=== PATIENT | male | born 1935 | race Caucasian/White ===

== ENCOUNTER 2018-08-09 05:29 | Inpatient (IN) ==
[2018-08-09] MEDS ORDERED: NORMAL SALINE 1,000 ML IV ONE (05:58)
--- NOTE | 2018-08-09 06:01 | ERNOTE ---
<Saul Copeland - Last Filed: 08/09/18 06:32> Medical Problem HPI - General Time Seen by Provider: 08/09/18 05:32 Source: EMS Exam Limitations: clinical condition - Immun/Allergies/Home Medications Immunizations: IMMUNIZATION HX Immunizations Up to Date Yes History of Influenza Vaccine Yes Hx Pneumococcal Vaccination No Allergies/Adverse Reactions: Allergies Penicillins Adverse Reaction (Mild, Verified 07/02/14 09:06) "DEATHLY ILL" pioglitazone HCl [From Actos] Adverse Reaction (Mild, Verified 07/02/14 09:06) "ZOMBIE LIKE" Home Medications: HOME MEDICATIONS Aspirin [Aspirin Enteric Coated] 81 mg PO DAILY 06/19/14 [Last Taken Unknown] Blood Sugar Diagnostic, Drum [Accu-Chek Compact] 1 each MC BID 06/19/14 [Last Taken Unknown] Brinzolamide [Azopt 1% Ophthalmic Suspension] 1 drop EACHEYE BID 06/19/14 [Last Taken Unknown] Insulin Glargine,Hum.rec.anlog [Lantus] 50 unit SQ DAILY 06/19/14 [Last Taken Unknown] Multivitamins [Multivitamin Elmer] 1 cap PO DAILY 06/19/14 [Last Taken Unknown] glimepiride 4 mg tablet 4 mg PO ONCE #90 tab 12/29/17 [Last Taken Unknown] glimepiride 4 mg tablet 4 mg PO DAILY #90 tab 07/30/18 [Last Taken Unknown] metformin ER 500 mg tablet,extended release 24 hr 1,000 mg PO BIDWM #360 tab 07/30/18 [Last Taken Unknown] simvastatin 40 mg tablet 20 mg PO QPM #45 tab 07/30/18 [Last Taken Unknown] - History of Present History Narrative: EMS was called out for patient assistance and found the patient on the toilet. His stated that he had been sitting there for about an hour and that he had been more confused throughout the day yesterday. Timing: getting worse Severity: moderate Review of Systems - Review of Systems Constitutional: Absent: recent illness, fever, chills EYE: Absent: vision changes ENT: Absent: nose congestion, nasal drainage Respiratory: Absent: shortness of breath Cardiology: Absent: chest pain Gastrointestinal/Abdominal: Absent: nausea, vomiting, diarrhea, abdominal pain Genitourinary: Present: frequency. 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 Left full, right partial. Family History: Family History (Updated 08/09/18 @ 06:03 by Ethel Jauregui, RN) Other No pertinent family history Social History: Preferred Language Malawian Psych History No pertinent hx No Social History Section defined Physical Exam - Physical Exam General Appearance: Present: wd/wn, alert, no apparent distress, other - Pt smells strongly of urine Head Exam: Present: normal inspection, no evidence of injury Ears, Nose, Throat: Present: dry mucous membranes Neck: Present: normal inspection, nontender, supple Respiratory: Present: no respiratory distress, no accessory muscle use, chest nontender, lungs clear Cardiovascular/Chest: Present: regular rate, rhythm, no murmur, extra beats. Absent: chest tenderness Gastrointestinal/Abdominal: Present: normal bowel sounds, nontender, nondistended, soft Extremity Exam: Present: normal inspection, normal range of motion, no edema Neurological Exam: Present: alert, oriented, no motor/sensory deficits Skin Exam: Present: normal color, warm/dry, other - few abrasions/ sores on anterior tibia bilateral Lymphatic Exam: Present: no adenopathy Progress - Results and Orders Patient's Lab Results:: I have reviewed the patient's lab results. Results and Orders: Laboratory Tests 08/09/18 08/09/18 08/09/18 05:58 05:58 05:58 WBC 18.2 H Hgb 16.8 Hct 50.1 Plt Count 268 Neutrophils % 90.8 H VBG pH 7.298 L Sodium 129 L Potassium 5.5 H D Chloride 94 L BUN 48 H D Creatinine 2.14 H D Calcium 9.9 Total Bilirubin 1.1 AST 55 H ALT 21 Ethyl Alcohol Less than 3.0 Serum Ketones Pending - Vital Signs Patient's Vital Signs:: I have reviewed the patient's vital signs. - Transfer of Care Physician Sign Out: Saul Copeland Receiving Physician: Nirmal Louise Pending Results: Labs Expected Disposition: Admit Departure Clinical Impression: WIN (acute kidney injury) DKA (diabetic ketoacidoses) Qualifiers: Diabetes mellitus type: type 2 Diabetes mellitus complication detail: without coma Qualified Code(s): E11.10 - Type 2 diabetes mellitus with ketoacidosis without coma - Departure Disposition: Still a patient Condition: Fair <Nirmal Louise - Last Filed: 08/09/18 07:25> Medical Problem HPI - Immun/Allergies/Home Medications Immunizations: IMMUNIZATION HX Immunizations Up to Date Yes History of Influenza Vaccine Yes Hx Pneumococcal Vaccination More Information Required Medical History (Updated 08/09/18 @ 06:31 by Saul Copeland DO) Colon cancer 2007 Diabetes Hyperlipidemia Irregular heart beat Surgical History: Surgical History (Updated 08/09/18 @ 06:02 by Ethel Jauregui, JAYMIE) History of colon resection 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 Left full, right partial. Family History: Family History (Updated 08/09/18 @ 06:03 by Ethel Jauregui, JAYMIE) Other No pertinent family history Social History: Preferred Language Malawian Do you have any sikhism or No: Prod cultural preference? Smoking Status Former smoker Psych History No pertinent hx Alcohol Use none Drug Use none No Social History Section defined Progress - Results and Orders Patient's Lab Results:: I have reviewed the patient's lab results. - Vital Signs Patient's Vital Signs:: I have reviewed the patient's vital signs. Vital Signs: Vital Signs 08/09/18 05:33 08/09/18 06:15 08/09/18 06:30 Temperature 36.4 C Pulse Rate 112 H 91 91 Respiratory Rate 24 H 23 H 25 H Blood Pressure 164/67 H 124/65 165/71 H O2 Sat by Pulse Oximetry 94 95 08/09/18 06:58 Temperature Pulse Rate 102 H Respiratory Rate 14 Blood Pressure 169/78 H O2 Sat by Pulse Oximetry 94 - X-Ray X-Ray #1 X-Ray: chest Interpretation: Interp. by me X-ray Comments: No radiology read yet. No pneumonia noted - Progress/Reassessment Progress Note-Subjective: 08/09/18 07:24 IV fluids and ABx given awaiting UA. Labs reviewed. IV insulin drip given. D/W Dr Gross who will admit. Patient and family informed. Please see Dr Copeland's note for full H&P.
[2018-08-09 06:04] LABS: Hematocrit 50.1 % (42.0-52.0); Hemoglobin 16.8 gm/dL (13.5-18.0); Mean Cell Volume 93.8 fl (78-100); Mean Corpuscular Hemoglobin 31.5 pg (27-31); Mean Corpuscular Hgb Conc 33.5 g/dl (32-36); Mean Platelet Volume 9.7 fl (8-11.3); Neutrophil # 16.5 K/mm3 (1.3-6.0); Neutrophil % 90.8 % (42-75.0); Platelet Count 268 K/mm3 (150-450); Red Blood Count 5.34 M/mm3 (4.7-6.0); Red Cell Distribution Width 12.4 % (11.5-14.0); White Blood Count 18.2 K/mm3 (4.0-10.5)
[2018-08-09 06:17] LABS: ALT 21 U/L (19-67); AST 55 U/L (0-48); Albumin * 3.6 gm/dl (3.4-5.0); Alkaline Phosphatase * 106 U/L (50-170); Anion Gap 27.1 mmol/L (6.8-13.8); BUN/Creatinine Ratio 22.4 (9.0-21.6); Bilirubin, Total 1.1 mg/dL (0.0-1.1); Blood Urea Nitrogen 48 mg/dL (6-23); Ca. Corrected For Albumin 9.9 mg/dL (8.4-10.2); Calcium * 9.9 mg/dL (7.9-10.9); Carbon Dioxide 13.4 mmol/L (24-32.6); Chloride 94 mmol/L (97-106); Potassium 5.5 mmol/L (3.4-4.6); Sodium 129 mmol/L (132-142); Total Protein 8.2 gm/dL (6.2-8.2)
[2018-08-09] MEDS ORDERED: LEVOFLOXACIN IN DEXTROSE 5 % 500 MG/100 ML BAG IV SCH (06:45)
[2018-08-09] MEDS ORDERED: INSULIN REGULAR, HUMAN 100 UNITS in NORMAL SALINE 100 ML IV PRN ×4 (06:46→15:22)
[2018-08-09 06:51] LABS: Urine Bilirubin Negative (NEGATIVE); Urine Blood 250 /ul (NEGATIVE); Urine Ketone 15 mg/dL (NEGATIVE); Urine Nitrite Negative (NEGATIVE); Urine Protein 15 mg/dL (NEGATIVE); Urine Specific Gravity <=1.005 SP.GR. (1.005-1.030); Urine Urobilinogen Normal (NORMAL); Urine pH 5.5 pH (5.0-7.0)
[2018-08-09 07:01] LABS: Cocaine Ur Negative (NEGATIVE); Urine Barbiturate Negative (NEGATIVE); Urine Benzodiazepines Negative (NEGATIVE); Urine Opiates Negative (NEGATIVE); Urine PCP Negative (NEGATIVE); Urine THC Negative (NEGATIVE)
[2018-08-09 07:12] LABS: Urine Appearance Clear (CLEAR); Urine Color Yellow; Urine WBC 0-5 /hpf (0-5)
[2018-08-09 07:13] LABS: Urine Bacteria TRACE; Urine Yeast TRACE
[2018-08-09 07:19] LABS: Glucose * 790 mg/dL (70-110)
[2018-08-09] MEDS: NORMAL SALINE 1,000 ML IV SCH ×4 (07:21→22:54)
[2018-08-09] MEDS ORDERED: NORMAL SALINE 1,000 ML IV PRN (08:30)
--- NOTE | 2018-08-09 08:33 | HP ---
Chief Complaint - Chief Complaint Date of Service: 08/09/18 Time of Service: 08:33 Chief Complaint: Diarrhea, lightheaded History of Present Illness: Trever is an 83 yo male with diabetes mellitus type 2, insulin dependent. For the past week he reports diarrhea, nausea, and poor oral intake. He was becoming increasingly fatigued and weak and therefore presented to the [facility] ER today for evaluation. He was found to have a blood glucose of 790 with high anion gap metabolic acidosis and serum ketones with a pH of 7.298. He was given a liter bolus of NS in the ER and started on insulin drip. Chest xray and urine did not show any evidence of infection. 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 Left full, right partial. Family History: Family History (Updated 08/09/18 @ 06:03 by Ethel Jauregui RN) Other No pertinent family history Social History: Preferred Language Indonesian Do you have any sikhism or No: Prod cultural preference? Smoking Status Former smoker Psych History No pertinent hx Alcohol Use none Drug Use none No Social History Section defined Review Of Systems (GEN) - Review of Systems Generalized/Overall Review: Present: Weakness, Malaise, Fatigue. Absent: Chills, Fever EENTM: Present: No Symptoms Reported Respiratory: Absent: Cough, Shortness of Breath Cardiac: Absent: Chest Pain, Edema Abdominal: Present: Nausea, Abdominal Pain, Diarrhea Genitourinary: Present: No Symptoms Reported Musculoskeletal: Present: No Symptoms Reported Neurological: Present: Weakness Skin: Present: No Symptoms Reported Immunizations: IMMUNIZATION HX Immunizations Up to Date Yes History of Influenza Vaccine Yes Hx Pneumococcal Vaccination More Information Required Allergies/Adverse Reactions: Allergies Allergy/AdvReac Type Severity Reaction Status Date / Time Penicillins AdvReac Mild "DEATHLY Verified 08/09/18 09:10 ILL" pioglitazone HCl [From Actos] AdvReac Mild "ZOMBIE Verified 08/09/18 09:10 LIKE" Home Medications: HOME MEDICATIONS Aspirin [Aspirin Enteric Coated] 81 mg PO DAILY 06/19/14 [Last Taken Unknown] Blood Sugar Diagnostic, Drum [Accu-Chek Compact] 1 each BID 06/19/14 [Last Taken Unknown] Brinzolamide [Azopt 1% Ophthalmic Suspension] 1 drop EACHEYE BID 06/19/14 [Last Taken Unknown] Insulin Glargine,Hum.rec.anlog [Lantus] 50 unit SQ DAILY 06/19/14 [Last Taken Unknown] Multivitamins [Multivitamin Elmer] 1 cap PO DAILY 06/19/14 [Last Taken Unknown] glimepiride 4 mg tablet 4 mg PO DAILY #90 tab 07/30/18 [Last Taken Unknown] metformin ER 500 mg tablet,extended release 24 hr 1,000 mg PO BIDWM #360 tab 07/30/18 [Last Taken Unknown] simvastatin 40 mg tablet 20 mg PO QPM #45 tab 07/30/18 [Last Taken Unknown] Exam - Exam Vital Signs: Vital Signs - Last Taken Temp 36.4 C 08/09/18 08:20 Pulse 102 H 08/09/18 08:20 Resp 20 08/09/18 08:20 BP 159/74 H 08/09/18 08:20 Pulse Ox 95 08/09/18 08:20 Constitutional: Present: Alert, Oriented x3, Cooperative ENT Exam: Present: hearing grossly normal Eye Exam: bilateral eye: normal inspection Respiratory: Present: lungs clear, normal breath sounds Cardiovascular/Chest: Present: no murmur, tachycardia Peripheral Pulses: radial (R): 1+, radial (L): 1+ Abdomen: Present: Normal bowel sounds, soft, nontender, nondistended Extremity: Present: normal inspection Skin Exam: Present: normal color, warm/dry, no cyanosis Neurologic: Present: alert, normal mood/affect, oriented x 3 Appearance: Present: appropriate appearance, appropriate insight Eye contact: Present: cooperative, good eye contact, normal speech Thoughts: Present: normal thought pattern, no apparent hallucination Diagnostic Studies: Abnormal Lab Results 08/09/18 08/09/18 08/09/18 Range/Units 05:56 05:58 05:58 WBC 18.2 H (4.0-10.5) K/mm3 MCH 31.5 H (27-31) pg Immature Gran % (Auto) 0.60 H (0.001-0.429) % Immature Gran # (Auto) 0.11 H (0.000-0.0310) K/mm3 Neutrophils % 90.8 H (42-75.0) % Lymphocytes % 3.8 L (20-51) % Neutrophils # 16.5 H (1.3-6.0) K/mm3 Lymphocytes # 0.70 L (1.5-3.5) k/mm3 VBG pH (7.32-7.43) Sodium 129 L (132-142) mmol/L Potassium 5.5 H D (3.4-4.6) mmol/L Chloride 94 L (97-106) mmol/L Carbon Dioxide 13.4 L (24-32.6) mmol/L Anion Gap 27.1 H (6.8-13.8) mmol/L BUN 48 H D (6-23) mg/dL Creatinine 2.14 H D (0.4-1.4) mg/dL Est GFR (Non-Af Amer) 32 L D (60-130) mL/min BUN/Creatinine Ratio 22.4 H (9.0-21.6) Random Glucose 790 H* (70-110) mg/dL Lactic Acid, Venous 4.9 H* (0.4-2.0) mmol/L AST 55 H (0-48) U/L Urine Protein (NEGATIVE) mg/dL Urine Glucose (UA) (NEGATIVE) mg/dL Urine Blood (NEGATIVE) /ul Urine RBC (0-5) /hpf Serum Ketones Positive - 20mg/dl H (NEGATIVE) 08/09/18 08/09/18 Range/Units 05:58 06:45 WBC (4.0-10.5) K/mm3 MCH (27-31) pg Immature Gran % (Auto) (0.001-0.429) % Immature Gran # (Auto) (0.000-0.0310) K/mm3 Neutrophils % (42-75.0) % Lymphocytes % (20-51) % Neutrophils # (1.3-6.0) K/mm3 Lymphocytes # (1.5-3.5) k/mm3 VBG pH 7.298 L (7.32-7.43) Sodium (132-142) mmol/L Potassium (3.4-4.6) mmol/L Chloride (97-106) mmol/L Carbon Dioxide (24-32.6) mmol/L Anion Gap (6.8-13.8) mmol/L BUN (6-23) mg/dL Creatinine (0.4-1.4) mg/dL Est GFR (Non-Af Amer) (60-130) mL/min BUN/Creatinine Ratio (9.0-21.6) Random Glucose (70-110) mg/dL Lactic Acid, Venous (0.4-2.0) mmol/L AST (0-48) U/L Urine Protein 15 H (NEGATIVE) mg/dL Urine Glucose (UA) >=1000 H (NEGATIVE) mg/dL Urine Blood 250 H (NEGATIVE) /ul Urine RBC 5-10 H (0-5) /hpf Serum Ketones (NEGATIVE) Laboratory Results WBC 18.2 K/mm3 (4.0-10.5) H 08/09/18 05:58 RBC 5.34 M/mm3 (4.7-6.0) 08/09/18 05:58 Hgb 16.8 gm/dL (13.5-18.0) 08/09/18 05:58 Hct 50.1 % (42.0-52.0) 08/09/18 05:58 MCV 93.8 fl (78-100) 08/09/18 05:58 MCH 31.5 pg (27-31) H 08/09/18 05:58 MCHC 33.5 g/dl (32-36) 08/09/18 05:58 RDW 12.4 % (11.5-14.0) 08/09/18 05:58 Plt Count 268 K/mm3 (150-450) 08/09/18 05:58 MPV 9.7 fl (8-11.3) 08/09/18 05:58 Immature Gran % (Auto) 0.60 % (0.001-0.429) H 08/09/18 05:58 Immature Gran # (Auto) 0.11 K/mm3 (0.000-0.0310) H 08/09/18 05:58 90.8 % (42-75.0) H 08/09/18 05:58 3.8 % (20-51) L 08/09/18 05:58 4.5 % (0.0-9) 08/09/18 05:58 0.0 % (0.0-3.0) 08/09/18 05:58 0.3 % (0.0-1.0) 08/09/18 05:58 Nucleated RBC % 0.0 k/mm3 (0-1) 08/09/18 05:58 16.5 K/mm3 (1.3-6.0) H 08/09/18 05:58 0.70 k/mm3 (1.5-3.5) L 08/09/18 05:58 0.8 k/mm3 (0.0-1.0) 08/09/18 05:58 0.0 k/mm3 (0.0-0.7) 08/09/18 05:58 Absolute Basophils 0.1 k/mm3 (0.0-0.1) 08/09/18 05:58 VBG pH 7.298 (7.32-7.43) L 08/09/18 05:58 Sodium 129 mmol/L (132-142) L 08/09/18 05:58 140 mmol/L (130-142) 08/09/18 05:58 Potassium 5.5 mmol/L (3.4-4.6) H D 08/09/18 05:58 Chloride 94 mmol/L (97-106) L 08/09/18 05:58 Carbon Dioxide 13.4 mmol/L (24-32.6) L 08/09/18 05:58 27.1 mmol/L (6.8-13.8) H 08/09/18 05:58 BUN 48 mg/dL (6-23) H D 08/09/18 05:58 2.14 mg/dL (0.4-1.4) H D 08/09/18 05:58 Est GFR (Non-Af Amer) 32 mL/min (60-130) L D 08/09/18 05:58 22.4 (9.0-21.6) H 08/09/18 05:58 790 mg/dL (70-110) H* 08/09/18 05:58 4.9 mmol/L (0.4-2.0) H* 08/09/18 05:56 Calcium 9.9 mg/dL (7.9-10.9) 08/09/18 05:58 Calcium Adj for Albumin 9.9 mg/dL (8.4-10.2) 08/09/18 05:58 1.1 mg/dL (0.0-1.1) 08/09/18 05:58 AST 55 U/L (0-48) H 08/09/18 05:58 ALT 21 U/L (19-67) 08/09/18 05:58 106 U/L (50-170) 08/09/18 05:58 8.2 gm/dL (6.2-8.2) 08/09/18 05:58 3.6 gm/dl (3.4-5.0) 08/09/18 05:58 Yellow 08/09/18 06:45 Clear (CLEAR) 08/09/18 06:45 5.5 pH (5.0-7.0) 08/09/18 06:45 Ur Specific [place] <=1.005 SP.GR. (1.005-1.030) 08/09/18 06:45 15 mg/dL (NEGATIVE) H 08/09/18 06:45 >=1000 mg/dL (NEGATIVE) H 08/09/18 06:45 15 mg/dL (NEGATIVE) 08/09/18 06:45 250 /ul (NEGATIVE) H 08/09/18 06:45 Negative (NEGATIVE) 08/09/18 06:45 Negative mg/dl (NEGATIVE) 08/09/18 06:45 Prot Sulfosalicylic Acd Negative mg/dL (0) 08/09/18 06:45 Normal EU/dl (NORMAL) 08/09/18 06:45 Ur Leukocyte Esterase Negative /ul (NEGATIVE) 08/09/18 06:45 5-10 /hpf (0-5) H 08/09/18 06:45 0-5 /hpf (0-5) 08/09/18 06:45 Ur Epithelial Cells 0-5 /hpf (0-5) 08/09/18 06:45 Trace (NONE) 08/09/18 06:45 Trace (NONE) 08/09/18 06:45 No culture indicated 08/09/18 06:45 Negative (NEGATIVE) 08/09/18 06:45 Negative (NEGATIVE) 08/09/18 06:45 Ur Phencyclidine Scrn Negative (NEGATIVE) 08/09/18 06:45 Urine Amphetamine Negative (NEGATIVE) 08/09/18 06:45 U Benzodiazepines Scrn Negative (NEGATIVE) 08/09/18 06:45 Negative (NEGATIVE) 08/09/18 06:45 Negative (NEGATIVE) 08/09/18 06:45 Ethyl Alcohol Less than 3.0 mg/dL (0.0-10.0) 08/09/18 05:58 Positive - 20mg/dl (NEGATIVE) H 08/09/18 05:58 Assessment/Plan - Narrative Narrative: Trever is an 83 yo male with diabetic ketoacidosis with positive serum ketones, pH of 7.2, and glucose of 790. This is likely primarily from dehydration as creatinine is significantly elevated and he has been having diarrhea with poor oral intake likely from GI virus. Will treat mostly with IV fluids, but will start on insulin drip. Will monitor electrolytes every two hours and glucose hourly. Will plan to restart home insulin once acidosis is corrected and anion gap is closed. Expect >2 midnights to treat and monitor response monitor stability of condition to see that he does not relapse. - Assessment/Plan (1) DKA (diabetic ketoacidoses) Problem: Acute Qualifiers: Diabetes mellitus type: type 2 Diabetes mellitus complication detail: without coma Qualified Code(s): E11.10 - Type 2 diabetes mellitus with ketoacidosis without coma (2) WIN (acute kidney injury) Problem: Acute (3) Gastroenteritis Problem: Acute
[2018-08-09 09:20] LABS: Albumin * 3.1 gm/dl (3.4-5.0); Anion Gap 21.7 mmol/L (6.8-13.8); BUN/Creatinine Ratio 23.2 (9.0-21.6); Bilirubin, Total 0.9 mg/dL (0.0-1.1); Ca. Corrected For Albumin 9.7 mg/dL (8.4-10.2); Calcium * 9.3 mg/dL (7.9-10.9); Carbon Dioxide 18.3 mmol/L (24-32.6); Total Protein 7.3 gm/dL (6.2-8.2)
[2018-08-09 10:57] LABS: Anion Gap 18.7 mmol/L (6.8-13.8); BUN/Creatinine Ratio 24.9 (9.0-21.6); Bilirubin, Total 0.8 mg/dL (0.0-1.1); Ca. Corrected For Albumin 9.3 mg/dL (8.4-10.2); Calcium * 8.8 mg/dL (7.9-10.9); Carbon Dioxide 21.3 mmol/L (24-32.6); Total Protein 7.1 gm/dL (6.2-8.2)
[2018-08-09 13:04] LABS: Albumin * 2.9 gm/dl (3.4-5.0); Anion Gap 16.7 mmol/L (6.8-13.8); Bilirubin, Total 0.8 mg/dL (0.0-1.1); Ca. Corrected For Albumin 9.3 mg/dL (8.4-10.2); Calcium * 8.7 mg/dL (7.9-10.9); Carbon Dioxide 22.5 mmol/L (24-32.6); Potassium 5.2 mmol/L (3.4-4.6); Total Protein 6.9 gm/dL (6.2-8.2)
[2018-08-09 15:01] LABS: Albumin * 2.8 gm/dl (3.4-5.0); Anion Gap 13.1 mmol/L (6.8-13.8); BUN/Creatinine Ratio 24.7 (9.0-21.6); Bilirubin, Total 0.8 mg/dL (0.0-1.1); Ca. Corrected For Albumin 9.2 mg/dL (8.4-10.2); Calcium * 8.6 mg/dL (7.9-10.9); Carbon Dioxide 23.8 mmol/L (24-32.6); Potassium 4.9 mmol/L (3.4-4.6); Total Protein 6.6 gm/dL (6.2-8.2)
[2018-08-09 16:58] LABS: Albumin * 3.1 gm/dl (3.4-5.0); Anion Gap 13.4 mmol/L (6.8-13.8); BUN/Creatinine Ratio 23.6 (9.0-21.6); Bilirubin, Total 0.9 mg/dL (0.0-1.1); Ca. Corrected For Albumin 9.3 mg/dL (8.4-10.2); Calcium * 8.9 mg/dL (7.9-10.9); Carbon Dioxide 25.3 mmol/L (24-32.6); Potassium 3.7 mmol/L (3.4-4.6); Total Protein 7.4 gm/dL (6.2-8.2)
[2018-08-09] MEDS: INSULIN GLARGINE,HUM.REC.ANLOG 100 UNITS/ML VIAL SC SCH (17:59)
[2018-08-09 18:51] LABS: Albumin * 3.1 gm/dl (3.4-5.0); Anion Gap 14.7 mmol/L (6.8-13.8); BUN/Creatinine Ratio 23.4 (9.0-21.6); Bilirubin, Total 0.9 mg/dL (0.0-1.1); Ca. Corrected For Albumin 9.3 mg/dL (8.4-10.2); Calcium * 8.9 mg/dL (7.9-10.9); Carbon Dioxide 22.2 mmol/L (24-32.6); Potassium 3.9 mmol/L (3.4-4.6); Total Protein 7.2 gm/dL (6.2-8.2)
[2018-08-09] MEDS: BRINZOLAMIDE 100 DROP BTL EACHEYE SCH (20:33)
[2018-08-09 21:08] LABS: Albumin * 2.8 gm/dl (3.4-5.0); Anion Gap 14.7 mmol/L (6.8-13.8); BUN/Creatinine Ratio 23.2 (9.0-21.6); Bilirubin, Total 0.8 mg/dL (0.0-1.1); Ca. Corrected For Albumin 9.3 mg/dL (8.4-10.2); Calcium * 8.7 mg/dL (7.9-10.9); Potassium 3.7 mmol/L (3.4-4.6); Total Protein 6.7 gm/dL (6.2-8.2)
[2018-08-09] MEDS: SIMVASTATIN 20 MG TABLET PO SCH (22:55)
[2018-08-10 05:19] LABS: Hematocrit 41.2 % (42.0-52.0); Hemoglobin 13.5 gm/dL (13.5-18.0); Mean Cell Volume 95.2 fl (78-100); Mean Corpuscular Hemoglobin 31.2 pg (27-31); Mean Corpuscular Hgb Conc 32.8 g/dl (32-36); Mean Platelet Volume 9.1 fl (8-11.3); Neutrophil # 8.7 K/mm3 (1.3-6.0); Neutrophil % 64.7 % (42-75.0); Platelet Count 196 K/mm3 (150-450); Red Blood Count 4.33 M/mm3 (4.7-6.0); Red Cell Distribution Width 12.6 % (11.5-14.0); White Blood Count 13.5 K/mm3 (4.0-10.5)
[2018-08-10 05:44] LABS: Albumin * 2.4 gm/dl (3.4-5.0); BUN/Creatinine Ratio 23.5 (9.0-21.6); Bilirubin, Total 0.7 mg/dL (0.0-1.1); Ca. Corrected For Albumin 9.3 mg/dL (8.4-10.2); Calcium * 8.3 mg/dL (7.9-10.9); Carbon Dioxide 25.3 mmol/L (24-32.6); Potassium 3.3 mmol/L (3.4-4.6); Total Protein 5.7 gm/dL (6.2-8.2)
[2018-08-10] MEDS ORDERED: POTASSIUM CHLORIDE 20 MEQ TABLET.SA PO ONE (07:56)
[2018-08-10] MEDS: BRINZOLAMIDE 100 DROP BTL EACHEYE SCH ×2 (09:14→21:02)
[2018-08-10] MEDS: ASPIRIN 81 MG TABLET.DR PO SCH (09:14)
[2018-08-10] MEDS: MULTIVITAMINS 1 CAP CAPSULE PO SCH (09:14)
[2018-08-10] MEDS: INSULIN GLARGINE,HUM.REC.ANLOG 100 UNITS/ML VIAL SC SCH (09:15)
[2018-08-10] MEDS: NORMAL SALINE 1,000 ML IV PRN (11:59)
[2018-08-10] MEDS: NORMAL SALINE 1,000 ML IV SCH ×2 (12:15→12:16)
[2018-08-10] MEDS ORDERED: ACETAMINOPHEN 325 MG TABLET PO PRN (13:14)
[2018-08-10] MEDS: SIMVASTATIN 20 MG TABLET PO SCH (21:02)
[2018-08-11] MEDS: NORMAL SALINE 1,000 ML IV PRN (01:24)
[2018-08-11] MEDS ORDERED: POLYETHYLENE GLYCOL 3350 17 GM PACKET PO SCH (09:00)
[2018-08-11] MEDS: ASPIRIN 81 MG TABLET.DR PO SCH (09:27)
[2018-08-11] MEDS: MULTIVITAMINS 1 CAP CAPSULE PO SCH (09:27)
[2018-08-11] MEDS: BRINZOLAMIDE 100 DROP BTL EACHEYE SCH (09:28)
[2018-08-11] MEDS: INSULIN GLARGINE,HUM.REC.ANLOG 100 UNITS/ML VIAL SC SCH (09:31)
--- NOTE | 2018-08-11 09:35 | DS ---
Description of Stay: Patient presented to the ED after decreased PO intake, nausea, and diarrhea. He was found to be in DKA, with serum ketones, glucose of 790, anion gap of 27, CO2 of 13. He was given fluids and started on an insulin drip, and corrected late the afternoon of admission. He continued to be significantly weak. The DKA was felt to be secondary to a GI virus. Negative blood cultures. He was evaluated by PT, who recommended home health, to which he agrees. Trever Berry is homebound due to deconditioning, gait instability, lower e xtremity weakness. He was only able to walk 15 feet with PT. He has a history of diabetes, colon cancer. The need for correction is medication management. The need for physical therapy is deconditioning, gain instability, lower extremity weakness, and increased risk of falls. The need for home health care skilled services is directly related to the time spent [id number] with Mr. Berry. Procedures Performed: none Results and Findings: Pending Mircobiology Results 08/09/18 06:50 Blood Blood Culture - Preliminary NO GROWTH AFTER 48 HOURS 08/09/18 05:58 Blood Blood Culture - Preliminary NO GROWTH AFTER 48 HOURS Lab Pending Results 08/09/18 05:56: Lactic Acid, Venous 4.9 H* 08/09/18 05:58: Sodium 129 L, Plasma Sodium 140, Potassium 5.5 H D, Chloride 94 L, Carbon Dioxide 13.4 L, Anion Gap 27.1 H, BUN 48 H D, Creatinine 2.14 H D, Est GFR (Non-Af Amer) 32 L D, BUN/Creatinine Ratio 22.4 H, Random Glucose 790 H*, Calcium 9.9, Calcium Adj for Albumin 9.9, Total Bilirubin 1.1, AST 55 H, ALT 21, Alkaline Phosphatase 106, Total Protein 8.2, Albumin 3.6, Ethyl Alcohol Less than 3.0, Serum Ketones Positive - 20mg/dl H 08/09/18 05:58: WBC 18.2 H, RBC 5.34, Hgb 16.8, Hct 50.1, MCV 93.8, MCH 31.5 H, MCHC 33.5, RDW 12.4, Plt Count 268, MPV 9.7, Immature Gran % (Auto) 0.60 H, Immature Gran # (Auto) 0.11 H, Neutrophils % 90.8 H, Lymphocytes % 3.8 L, Monocytes % 4.5, Eosinophils % 0.0, Basophils % 0.3, Nucleated RBC % 0.0, Neutrophils # 16.5 H, Lymphocytes # 0.70 L, Monocytes # 0.8, Eosinophils # 0.0, Absolute Basophils 0.1 08/09/18 05:58: VBG pH 7.298 L 08/09/18 06:45: Urine Opiates Screen Negative, Barbiturate Screen Negative, Ur Phencyclidine Scrn Negative, Urine Amphetamine Negative, U Benzodiazepines Scrn Negative, Urine Cocaine Screen Negative, Urine Marijuana (THC) Negative 08/09/18 06:45: Urine Color Yellow, Urine Appearance Clear, Urine pH 5.5, Ur Specific [place] <=1.005, Urine Protein 15 H, Urine Glucose (UA) >=1000 H, Urine Ketones 15, Urine Blood 250 H, Urine Nitrate Negative, Urine Bilirubin Negative, Prot Sulfosalicylic Acd Negative, Urine Urobilinogen Normal, Ur Leukocyte Esterase Negative, Urine RBC 5-10 H, Urine WBC 0-5, Ur Epithelial Cells 0-5, Urine Bacteria Trace, Urine Yeast Trace, Urine Culture Comments No culture indicated 08/09/18 08:50: Lactic Acid, Venous 3.7 H* 08/09/18 08:50: Sodium 136, Plasma Sodium 144 H, Potassium 5.0 H, Chloride 101, Carbon Dioxide 18.3 L, Anion Gap 21.7 H, BUN 46 H, Creatinine 1.98 H, Est GFR (Non-Af Amer) 34 L, BUN/Creatinine Ratio 23.2 H, Random Glucose 624 H*, Calcium 9.3, Calcium Adj for Albumin 9.7, Total Bilirubin 0.9, AST 75 H, ALT 22, Alkaline Phosphatase 95, Total Protein 7.3, Albumin 3.1 L 08/09/18 10:36: Sodium 136, Plasma Sodium 143 H, Potassium 5.0 H, Chloride 101, Carbon Dioxide 21.3 L, Anion Gap 18.7 H, BUN 46 H, Creatinine 1.85 H, Est GFR (Non-Af Amer) 37 L, BUN/Creatinine Ratio 24.9 H, Random Glucose 562 H*, Calcium 8.8, Calcium Adj for Albumin 9.3, Total Bilirubin 0.8, AST 84 H, ALT 26, Alkaline Phosphatase 97, Total Protein 7.1, Albumin 3.0 L 08/09/18 12:35: Sodium 138, Plasma Sodium 144 H, Potassium 5.2 H, Chloride 104, Carbon Dioxide 22.5 L, Anion Gap 16.7 H, BUN 43 H, Creatinine 1.72 H, Est GFR (Non-Af Amer) 41 L, BUN/Creatinine Ratio 25.0 H, Random Glucose 477 H, Calcium 8.7, Calcium Adj for Albumin 9.3, Total Bilirubin 0.8, AST 84 H, ALT 27, Alkaline Phosphatase 92, Total Protein 6.9, Albumin 2.9 L 08/09/18 14:44: Sodium 139, Plasma Sodium 144 H, Potassium 4.9 H, Chloride 107 H, Carbon Dioxide 23.8 L, Anion Gap 13.1, BUN 39 H, Creatinine 1.58 H, Est GFR (Non-Af Amer) 45 L, BUN/Creatinine Ratio 24.7 H, Random Glucose 389 H, Calcium 8.6, Calcium Adj for Albumin 9.2, Total Bilirubin 0.8, AST 82 H, ALT 23, Alkaline Phosphatase 80, Total Protein 6.6, Albumin 2.8 L 08/09/18 16:35: Sodium 140, Plasma Sodium 143 H, Potassium 3.7 D, Chloride 105, Carbon Dioxide 25.3, Anion Gap 13.4, BUN 37 H, Creatinine 1.57 H, Est GFR (Non- Af Amer) 45 L, BUN/Creatinine Ratio 23.6 H, Random Glucose 280 H, Calcium 8.9, Calcium Adj for Albumin 9.3, Total Bilirubin 0.9, AST 98 H, ALT 29, Alkaline Phosphatase 93, Total Protein 7.4, Albumin 3.1 L 08/09/18 18:33: Sodium 138, Plasma Sodium 140, Potassium 3.9, Chloride 105, Carbon Dioxide 22.2 L, Anion Gap 14.7 H, BUN 36 H, Creatinine 1.54 H, Est GFR (Non-Af Amer) 46 L, BUN/Creatinine Ratio 23.4 H, Random Glucose 241 H, Calcium 8.9, Calcium Adj for Albumin 9.3, Total Bilirubin 0.9, AST 102 H, ALT 28, Alkaline Phosphatase 89, Total Protein 7.2, Albumin 3.1 L 08/09/18 20:50: Sodium 141, Plasma Sodium 142, Potassium 3.7, Chloride 106, Carbon Dioxide 24.0, Anion Gap 14.7 H, BUN 35 H, Creatinine 1.51 H, Est GFR (Non-Af Amer) 47 L, BUN/Creatinine Ratio 23.2 H, Random Glucose 168 H D, Calcium 8.7, Calcium Adj for Albumin 9.3, Total Bilirubin 0.8, AST 102 H, ALT 27, Alkaline Phosphatase 81, Total Protein 6.7, Albumin 2.8 L 08/10/18 05:15: WBC 13.5 H D, RBC 4.33 L, Hgb 13.5, Hct 41.2 L, MCV 95.2, MCH 31.2 H, MCHC 32.8, RDW 12.6, Plt Count 196, MPV 9.1, Immature Gran % (Auto) 0.40, Immature Gran # (Auto) 0.05 H, Neutrophils % 64.7, Lymphocytes % 26.2, Monocytes % 7.4, Eosinophils % 1.0, Basophils % 0.3, Nucleated RBC % 0.0, Neutrophils # 8.7 H, Lymphocytes # 3.53 H, Monocytes # 1.0, Eosinophils # 0.1, Absolute Basophils 0.0 08/10/18 05:15: Sodium 143 H, Plasma Sodium 143 H, Potassium 3.3 L, Chloride 110 H, Carbon Dioxide 25.3, Anion Gap 11.0, BUN 31 H, Creatinine 1.32, Est GFR (Non- Af Amer) 55 L, BUN/Creatinine Ratio 23.5 H, Random Glucose 77 D, Calcium 8.3, Calcium Adj for Albumin 9.3, Total Bilirubin 0.7, AST 88 H, ALT 24, Alkaline Phosphatase 70, Total Protein 5.7 L, Albumin 2.4 L Discharge Location: Home Disposition: [facility] Agency: [facility] Home Health Condition: Fair Discharge Activity: Activity as tolerated Discharge Diet: General/regular food Referrals: Jayce Gross DO [Primary Care Provider] - Problem Oriented Discharge Instructions to Patient/Family: Acute Kidney Injury, Diabetic Ketoacidosis Additional Patient Instructions (free text): -Please make TCM appointment unless group home discharge. Thank you! Babita @ [phone]. [facility]. Nursing, bath aide and PT. Please call report and fax orders upon discharge. Complete Home Medications List: Complete Home Medication List: Aspirin [Aspirin Enteric Coated] 81 mg PO DAILY 06/19/14 Blood Sugar Diagnostic, Drum [Accu-Chek Compact Plus Strips] 1 each MC BID 06/19/14 Brinzolamide [Azopt 1% Ophthalmic Suspension] 1 drop EACHEYE BID 06/19/14 Insulin Glargine,Hum.rec.anlog [Lantus] 50 unit SQ DAILY 06/19/14 Multivitamins [Multivitamin Elmer] 1 cap PO DAILY 06/19/14 glimepiride 4 mg tablet 4 mg PO DAILY #90 tab 07/30/18 metformin ER 500 mg tablet,extended release 24 hr 1,000 mg PO BIDWM #360 tab 07/30/18 simvastatin 40 mg tablet 20 mg PO QPM #45 tab 07/30/18
[2018-08-11 17:34] VITALS: BP 150/67
== END 2018-08-11 18:10 | disposition home health service (06) | DRG 682 ==
LOC: ER 05:29 → SCU 07:23 → MS 15:29
PROVIDERS: ADMIT Family Medicine; ATTEND Family Medicine
CPT/HCPCS: 36415; 71010; 71045; 80053; 80307; 80320; 81001; 82009; 82800; 83605; 85025; 87040; 94762; 96360; 97110; 97161; 99284; G0481

== ENCOUNTER 2020-01-04 12:04 | Inpatient (IN) ==
[2020-01-04 12:28] LABS: Hematocrit 50.9 % (42.0-52.0); Hemoglobin 17.1 gm/dL (13.5-18.0); Mean Cell Volume 89.5 fl (78-100); Mean Corpuscular Hemoglobin 30.1 pg (27-31); Mean Corpuscular Hgb Conc 33.6 g/dl (32-36); Mean Platelet Volume 8.9 fl (8-11.3); Neutrophil # 15.7 K/mm3 (1.3-6.0); Neutrophil % 87.7 % (42-75.0); Platelet Count 259 K/mm3 (150-450); Red Blood Count 5.69 M/mm3 (4.7-6.0); Red Cell Distribution Width 12.3 % (11.5-14.0)
--- NOTE | 2020-01-04 12:31 | ERNOTE ---
Trauma/Assault HPI - General Stated Complaint: fall Time Seen by Provider: 01/04/20 12:16 Source: EMS, RN notes reviewed Exam Limitations: no limitations - Immun/Allergies/Home Medications Immunizations: IMMUNIZATION HX Immunizations Up to Date Yes History of Influenza Vaccine Yes Hx Pneumococcal Vaccination More Information Required Allergies/Adverse Reactions: Allergies Penicillins Adverse Reaction (Mild, Verified 01/04/20 12:16) "DEATHLY ILL" pioglitazone HCl [From Actos] Adverse Reaction (Mild, Verified 01/04/20 12:16) "ZOMBIE LIKE" Home Medications: HOME MEDICATIONS Blood Sugar Diagnostic, Drum [Accu-Chek Compact Plus Strips] 1 ea MC BID 06/19/14 [Last Taken Unknown] Brinzolamide [Azopt 1% Ophthalmic Suspension] 1 drp EACHEYE BID 06/19/14 [Last Taken Unknown] Multivitamins [Multivitamin Elmer] 1 cap PO DAILY 06/19/14 [Last Taken Unknown] insulin glargine 100 unit/mL subcutaneous solution 50 unit SUBCUT DAILY ml 08/21/18 [Last Taken Unknown] simvastatin 40 mg tablet 20 mg PO QPM #45 tab 10/04/18 [Last Taken Unknown] metformin 500 mg tablet 1,000 mg PO BID #360 tab 10/08/18 [Last Taken Unknown] glimepiride 4 mg tablet 4 mg PO DAILY #90 tab 01/01/20 [Last Taken Unknown] Aspirin [Aspirin EC] 81 mg PO DAILY 01/04/20 [Last Taken Unknown] - History of Present Illness Narrative: Patient is an 84-year-old white male with past medical history significant for atrial fibrillation, diabetes and who is normally mobile at his home was on the toilet today and was unable to stand up and was leaning to one side. There was no traumatic fall, head injury or loss of consciousness. There is been no reported fevers or malaise. Patient has no complaints of any pain, just admits to some weakness. EMS did try to ambulate him but he was unable to ambulate so they brought him in for further evaluation. Patient initially did not want to be transported but finally agreed. Patient was not oriented to date, place. Location Occurred: Reports: home Pain Location: Reports: none Severity: mild Loss of Consciousness: Reports: no loss of consciousness Associated Symptoms - Trauma: Reports: denies symptoms Review of Systems - Review of Systems Constitutional: Present: weakness. Absent: fever, chills, malaise EYE: Absent: blurred vision, double vision ENT: Present: no symptoms reported Respiratory: Absent: shortness of breath, cough Cardiology: Absent: chest pain, palpitations, syncope, edema Gastrointestinal/Abdominal: Absent: vomiting, diarrhea Genitourinary: Absent: frequency, dysuria Musculoskeletal: Present: no symptoms reported Skin: Present: no symptoms reported Neurological: Present: weakness. Absent: dizziness/light-headedness, numbness, tingling Endocrine: Absent: excessive sweating, flushing, intolerance to heat, intolerance to cold, increased thirst, increased urine Hematologic/Lymphatic: Absent: easy bruising, easy bleeding Psych: Absent: anxiety, depressed Medical History (Last Reviewed 01/04/20 @ 12:40 by Trever Loyd MD) Dermatitis, unspecified (Acute) Onset Date: 09/18/18 Dr. Nicole Patton. [facility]. 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[employer], 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 Highest education level completed: high school graduate Service: Yes Tobacco: Smoking Status: Former smoker Alcohol: alcohol intake: former Substance Use: substance use type: does not use Dietary Habits: caffeine: No Amirah/Presybeterian: special amirah needs: No Detailed Trauma Exam Best Eye Response (Felton): (4) open spontaneously Best Verbal Response (Hieu): (5) oriented Best Motor Response (Hieu): (6) obeys commands Hieu Total: 15 Narrative: Patient extremely disheveled, with sweatpants lower extremities that had yellowish-brown streaking down the medial aspect from the crotch to the ankles. Sweatshirt also very dirty. Patient skin extremely dirty, with brownish stained dried skin. Nails are yellowish-brown in color very thickened and poorly cared for. Patient has erythematous skin in between his toes but no open sores noted. Dorsalis pedis pulses were 1+ on the right and barely palpable on the left with the left extremities were cool to touch than the right. General Appearance: Present: alert, no acute distress Head Injury: Present: normal inspection, no tenderness on palpate Neurological Exam: Present: alert, no motor/sensory deficits, x ray developer II-XII nml as tested, normal mood/affect, disoriented to time, disoriented to place, disoriented to situation Neck Exam: Present: non-tender, full range of motion, normal alignment, normal inspection Nexus Clearance: Present: Nexus criteria negative Eye Exam: Normal inspection: bilateral, PERRL: bilateral - Bilateral cataracts, EOMI: bilateral ENT Exam: Present: nml ext. inspection, other - Very poor dentition. Chest/Respiratory Exam: Present: nml inspection, chest non-tender, breath sounds nml Cardiovascular Exam: Present: tachycardia, irregularly irregular, systolic murmur Peripheral Pulses: Dorsalis-pedis (R): Normal, Dorsalis-pedis (L): Weak Abdominal Exam: Present: soft, non-tender, no distention, normal bowel sounds, other - Significant umbilical hernia with no trapped/incarcerated bowel. Genitalia Exam: Present: other - Scrotum is erythematous no discharge from meatus Skin Exam: Present: other - Skin is filthy and dry Exam normal except for the findings below:: Yes RU Extremity: Present: normal inspection, normal range of motion, non-tender, no edema KORI Extremity: Present: normal inspection, normal range of motion, non-tender, no edema RL Extremity: Present: normal inspection, normal range of motion, non-tender, no edema LL Extremity: Present: normal inspection, normal range of motion, non-tender, no edema - C-Spine cleared by: Neg history & exam - T, L-Spine cleared by: Neg hx and exam Progress - Results and Orders Patient's Lab Results:: I have reviewed the patient's lab results. Results and Orders: Laboratory Tests 01/04/20 12:22 WBC 18.0 H RBC 5.69 Hgb 17.1 Hct 50.9 MCV 89.5 MCH 30.1 MCHC 33.6 RDW 12.3 Plt Count 259 MPV 8.9 Immature Gran % (Auto) 0.30 Immature Gran # (Auto) 0.06 H Neutrophils % 87.7 H Lymphocytes % 5.9 L Monocytes % 5.7 Eosinophils % 0.0 Basophils % 0.4 Nucleated RBC % 0.0 Neutrophils # 15.7 H Lymphocytes # 1.06 L Monocytes # 1.0 Eosinophils # 0.0 Absolute Basophils 0.1 Laboratory Tests 01/04/20 12:22 Sodium 132 Plasma Sodium 141 Potassium 4.5 Chloride 96 L Carbon Dioxide 21.2 L Anion Gap 19.3 H BUN 45 H D Creatinine 2.20 H D Est GFR (Non-Af Amer) 30 L D BUN/Creatinine Ratio 20.5 Random Glucose 655 H Calcium 9.5 Calcium Adj for Albumin 9.8 Magnesium 1.6 Total Bilirubin 1.2 H AST 16 ALT 17 L Alkaline Phosphatase 97 Troponin I 0.055 C-Reactive Prot, Quant 1.7 H Total Protein 7.6 Albumin 3.2 L Laboratory Tests 01/04/20 12:22 Ethyl Alcohol Less than 3.0 Laboratory Tests 01/04/20 12:22 Serum Ketones Negative Laboratory Tests 01/04/20 12:22 Lactic Acid, Venous 6.6 H* Laboratory Tests 01/04/20 13:48 SARS-CoV-2 (PCR) Not detected Laboratory Tests 01/04/20 13:53 Urine Color Yellow Urine Appearance Slightly cloudy Urine pH 5.5 Ur Specific [place] 1.010 Urine Protein Negative Urine Glucose (UA) >=1000 H Urine Ketones 5 Urine Blood 50 H Urine Nitrate Negative Urine Bilirubin Negative Urine Urobilinogen Normal Ur Leukocyte Esterase Negative Urine RBC 0-5 Urine WBC 0-5 Ur Epithelial Cells 0-5 Urine Bacteria Trace Urine Yeast Trace Urine Culture Comments No culture indicated - Vital Signs Patient's Vital Signs:: I have reviewed the patient's vital signs. Vital Signs: Vital Signs 01/04/20 12:10 Temperature 37.3 C Pulse Rate 128 H Respiratory Rate 25 H Blood Pressure 106/70 O2 Sat by Pulse Oximetry 91 L - EKG EKG #1 EKG: atrial fibrillation - Rate of 119, no ST T wave changes EKG read: Interp. by me - X-Ray X-Ray #1 X-Ray: chest Interpretation: Interp. by me X-ray Comments: Possible right lower lobe infiltrate otherwise no acute cardiopulmonary findings. Radiologist report: IMPRESSION: NO ACUTE CARDIOPULMONARY DISEASE IDENTIFIED. Electronically signed by Nirmal Cavazos M.D.. - Progress/Reassessment Chief Complaint: Fall Progress:: Improved Progress Note-Subjective: 01/04/20 13:40 Patient is more alert and is actually tracking with what I was saying in regards to him being put in the hospital. 01/04/20 14:19 Patient heart rate is now stable in the low 100s. He continues to be more alert and talkative but still has urinary incontinence. - Transfer of Care Expected Disposition: Admit Additional Notes: Patient discussed with Dr. Shepherd who is agreeable to admit the patient for sepsis with toxic encephalopathy. Plan - Plan Plan: Serum ketones are negative. Lactic Acid is elevated. Will continue with IVF bolus as it appears patient may be septic given WBC of 18K, Lactic acid of 6.6, WIN, tachycardia and apparent toxic encephalopathy. Given patient does meet sepsis criteria will plan on admitting to the hospital once stable and all tests are back. He does appear to have a right lower lobe infiltrate so we will plan on giving him IV antibiotics as soon as blood cultures were drawn. UA is still pending. Due to him meeting criteria for admission will go ahead and do a rapid COVID at this time. Radiologist read the chest x-ray as negative for any infiltrates or infection. UA is still pending. Patient continues to be incontinent of urine. Discussed with patient's in regards to patient being admitted to the hospital. She repeated the same question several times as to why it was going to be in the hospital and why he may not be in this hospital but might be someplace else. Patient did ask why he was going to be placed in the hospital and I explained to him the details of her lab findings. Departure Clinical Impression: Weakness, Acute alteration in mental status, Hyperglycemia, WIN (acute kidney injury) Sepsis Qualifiers: Sepsis type: sepsis due to unspecified organism Sepsis acute organ dysfunction status: with acute organ dysfunction Severe sepsis acute organ dysfunction type: acute renal failure Acute renal failure type: unspecified Severe sepsis shock status: without septic shock Qualified Code(s): A41.9 - Sepsis, unspecified organism - Departure Disposition: Still a patient Condition: Stable Critical Care Time - Critical Care Critical Time Spent:: No
[2020-01-04] MEDS ORDERED: DILTIAZEM HCL 5 MG/ML VIAL IV ONE (12:44)
[2020-01-04 12:47] LABS: ALT 17 U/L (19-67); AST 16 U/L (0-48); Albumin * 3.2 gm/dl (3.4-5.0); Alkaline Phosphatase * 97 U/L (50-170); Anion Gap 19.3 mmol/L (6.8-13.8); BUN/Creatinine Ratio 20.5 (9.0-21.6); Bilirubin, Total 1.2 mg/dL (0.0-1.1); Blood Urea Nitrogen 45 mg/dL (6-23); CRP 1.7 mg/dL (0.0-0.9); Ca. Corrected For Albumin 9.8 mg/dL (8.4-10.2); Calcium * 9.5 mg/dL (7.9-10.9); Carbon Dioxide 21.2 mmol/L (24-32.6); Chloride 96 mmol/L (97-106); Magnesium 1.6 mg/dL (1.2-2.8); Potassium 4.5 mmol/L (3.4-4.6); Sodium 132 mmol/L (132-142); Total Protein 7.6 gm/dL (6.2-8.2)
[2020-01-04 12:49] LABS: Troponin I 0.055 ng/mL (0.00-0.10)
[2020-01-04 12:50] LABS: Glucose * 655 mg/dL (70-110)
[2020-01-04] MEDS ORDERED: RINGER'S SOLUTION,LACTATED 1,000 ML IV ONE ×4 (12:50→19:06)
[2020-01-04] MEDS ORDERED: INSULIN REGULAR, HUMAN 100 UNITS/ML VIAL IV ONE (12:50)
[2020-01-04] MEDS ORDERED: cefTRIAXone SODIUM 1,000 MG/100 ML BAG IV ONE (13:59)
[2020-01-04 14:15] LABS: Urine Bilirubin Negative (NEGATIVE); Urine Blood 50 /ul (NEGATIVE); Urine Ketone 5 mg/dL (NEGATIVE); Urine Nitrite Negative (NEGATIVE); Urine Protein Negative (NEGATIVE); Urine Urobilinogen Normal (NORMAL); Urine pH 5.5 pH (5.0-7.0)
[2020-01-04 14:25] LABS: Urine Appearance Slightly Cloudy (CLEAR); Urine Bacteria TRACE; Urine Color Yellow; Urine RBC 0-5 /hpf (0-5); Urine WBC 0-5 /hpf (0-5)
[2020-01-04 14:26] LABS: Urine Yeast TRACE
[2020-01-04] MEDS ORDERED: ACETAMINOPHEN 325 MG TABLET PO PRN (15:11)
[2020-01-04] MEDS: HEPARIN SODIUM,PORCINE 5,000 UNITS/ML VIAL SC SCH (17:22)
[2020-01-04] MEDS: INSULIN LISPRO 100 UNITS/ML VIAL SC SCH ×2 (17:24→21:17)
[2020-01-04] MEDS ORDERED: INSULIN LISPRO 100 UNITS/ML VIAL SC ONE ×2 (18:45→20:15)
--- NOTE | 2020-01-04 19:17 | HP ---
Chief Complaint - Chief Complaint Date of Service: 01/04/20 Time of Service: 19:03 Chief Complaint: hyperglycemia, weakness History of Present Illness: 84-year-old male with history of atrial fibrillation and diabetes presented to the hospital today by EMS after he developed weakness and fatigue and was unable to get the toilet. No other symptoms besides the weakness. He was found to have an elevated sugar at 655 but no signs of DKA. He had elevated lactic acid at 6.6. He also had acute kidney injury with a creatinine 2.2 and a GFR of 30. His white count was elevated at 18.0 but no signs of infection identified. UA was negative for infection though he did have glucose. Blood cultures were drawn in the ER. Patient was given 12 units of fast acting insulin. He was admitted to the floor due to fatigue/weakness as well as hyperglycemia. Repeat lactic acid came back at 5.2. Patient received a bolus of LR in the ER and then was started on an LR drip. For his vital signs he has been tachycardic with a high being at 146, most recent was 113. His blood pressures been stable if not slightly elevated. He is satting well and has a normal respiratory rate now, initially was 25 when he came to the ER. Patient admitted under inpatient for hyperglycemia with suspicion of infection somewhere due to elevated white count and lactic acid. No source identified at this time. Patient did receive 1 g of Rocephin prior to being admitted to the hospital. Upon examination patient feels well and has no concerns. He denies illness. He states that he is been normal and felt fine up until this morning when he got tired. His confirmed this in the ER earlier today. He is alert and oriented and pleasant to speak with. Medical History (Last Reviewed 01/04/20 @ 16:50 by Sirena Nguyen RN) Dermatitis, unspecified (Acute) Onset Date: 09/18/18 Dr. Nicole Patton. [facility]. 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 Absent: Fever EENTM: Present: No Symptoms Reported Respiratory: Present: No Symptoms Reported Cardiac: Present: No Symptoms Reported Abdominal: Present: No Symptoms Reported Genitourinary: Present: No Symptoms Reported Musculoskeletal: Present: No Symptoms Reported Neurological: Present: No Symptoms Reported Skin: Present: No Symptoms Reported Endocrine: Present: No Symptoms Reported. Absent: Increased Thirst Immunizations: IMMUNIZATION HX Immunizations Up to Date Yes History of Influenza Vaccine Yes Hx Pneumococcal Vaccination More Information Required Allergies/Adverse Reactions: Allergies Allergy/AdvReac Type Severity Reaction Status Date / Time Penicillins AdvReac Mild "DEATHLY Verified 01/04/20 16:53 ILL" pioglitazone HCl [From Actos] AdvReac Mild "ZOMBIE Verified 01/04/20 16:53 LIKE" Home Medications: HOME MEDICATIONS Blood Sugar Diagnostic, Drum [Accu-Chek Compact Plus Strips] 1 ea MC BID 06/19/14 [Last Taken Unknown] Brinzolamide [Azopt 1% Ophthalmic Suspension] 1 drp EACHEYE BID 06/19/14 [Last Taken Unknown] Multivitamins [Multivitamin Elmer] 1 cap PO DAILY 06/19/14 [Last Taken Unknown] insulin glargine 100 unit/mL subcutaneous solution 50 unit SUBCUT HS ml 08/21/18 [Last Taken Unknown] simvastatin 40 mg tablet 20 mg PO QPM #45 tab 10/04/18 [Last Taken Unknown] metformin 500 mg tablet 1,000 mg PO BID #360 tab 10/08/18 [Last Taken Unknown] Aspirin [Aspirin EC] 81 mg PO DAILY 01/04/20 [Last Taken Unknown] Glimepiride 8 mg PO DAILY 01/04/20 [Last Taken Unknown] Exam - Exam Vital Signs: Vital Signs - Last Taken Temp 36.9 C 01/04/20 17:36 Pulse 113 H 01/04/20 17:36 Resp 18 01/04/20 17:36 BP 155/78 H 01/04/20 17:36 Pulse Ox 98 01/04/20 17:36 Constitutional: Present: Alert, Oriented x3, Elderly ENT Exam: Present: hard of hearing. Absent: nasal congestion, nasal drainage Eye Exam: bilateral eye: normal inspection, PERRL, EOMI Neck: Present: non-tender, supple Back Exam: Present: no CVA tenderness Respiratory: Present: lungs clear, normal breath sounds Cardiovascular/Chest: Present: no murmur, irregularly irregular Abdomen: Present: Normal bowel sounds, soft, nontender, nondistended Extremity: Present: normal inspection. Absent: lower extremity edema, leg pain Skin Exam: Present: normal color, warm/dry Appearance: Present: appropriate appearance, appropriate insight Eye contact: Present: cooperative, good eye contact, normal speech Thoughts: Present: normal thought pattern, normal mood /affect Diagnostic Studies: Abnormal Lab Results 01/04/20 01/04/20 01/04/20 Range/Units 12:22 12:22 12:22 WBC 18.0 H (4.0-10.5) K/mm3 Immature Gran # (Auto) 0.06 H (0.000-0.0310) K/mm3 Neutrophils % 87.7 H (42-75.0) % Lymphocytes % 5.9 L (20-51) % Neutrophils # 15.7 H (1.3-6.0) K/mm3 Lymphocytes # 1.06 L (1.5-3.5) k/mm3 Chloride 96 L (97-106) mmol/L Carbon Dioxide 21.2 L (24-32.6) mmol/L Anion Gap 19.3 H (6.8-13.8) mmol/L BUN 45 H D (6-23) mg/dL Creatinine 2.20 H D (0.4-1.4) mg/dL Est GFR (Non-Af Amer) 30 L D (60-130) mL/min Random Glucose 655 H (70-110) mg/dL Lactic Acid, Venous 6.6 H* (0.4-2.0) mmol/L Total Bilirubin 1.2 H (0.0-1.1) mg/dL ALT 17 L (19-67) U/L C-Reactive Prot, Quant 1.7 H (0.0-0.9) mg/dL Albumin 3.2 L (3.4-5.0) gm/dl Urine Glucose (UA) (NEGATIVE) mg/dL Urine Blood (NEGATIVE) /ul 01/04/20 01/04/20 Range/Units 13:53 15:54 WBC (4.0-10.5) K/mm3 Immature Gran # (Auto) (0.000-0.0310) K/mm3 Neutrophils % (42-75.0) % Lymphocytes % (20-51) % Neutrophils # (1.3-6.0) K/mm3 Lymphocytes # (1.5-3.5) k/mm3 Chloride (97-106) mmol/L Carbon Dioxide (24-32.6) mmol/L Anion Gap (6.8-13.8) mmol/L BUN (6-23) mg/dL Creatinine (0.4-1.4) mg/dL Est GFR (Non-Af Amer) (60-130) mL/min Random Glucose (70-110) mg/dL Lactic Acid, Venous 5.2 H* (0.4-2.0) mmol/L Total Bilirubin (0.0-1.1) mg/dL ALT (19-67) U/L C-Reactive Prot, Quant (0.0-0.9) mg/dL Albumin (3.4-5.0) gm/dl Urine Glucose (UA) >=1000 H (NEGATIVE) mg/dL Urine Blood 50 H (NEGATIVE) /ul Laboratory Results WBC 18.0 K/mm3 (4.0-10.5) H 01/04/20 12:22 RBC 5.69 M/mm3 (4.7-6.0) 01/04/20 12:22 Hgb 17.1 gm/dL (13.5-18.0) 01/04/20 12:22 Hct 50.9 % (42.0-52.0) 01/04/20 12:22 MCV 89.5 fl (78-100) 01/04/20 12:22 MCH 30.1 pg (27-31) 01/04/20 12:22 MCHC 33.6 g/dl (32-36) 01/04/20 12:22 RDW 12.3 % (11.5-14.0) 01/04/20 12:22 Plt Count 259 K/mm3 (150-450) 01/04/20 12:22 MPV 8.9 fl (8-11.3) 01/04/20 12:22 Immature Gran % (Auto) 0.30 % (0.001-0.429) 01/04/20 12:22 Immature Gran # (Auto) 0.06 K/mm3 (0.000-0.0310) H 01/04/20 12:22 Neutrophils % 87.7 % (42-75.0) H 01/04/20 12:22 Lymphocytes % 5.9 % (20-51) L 01/04/20 12:22 Monocytes % 5.7 % (0.0-9) 01/04/20 12:22 Eosinophils % 0.0 % (0.0-3.0) 01/04/20 12:22 Basophils % 0.4 % (0.0-1.0) 01/04/20 12:22 Nucleated RBC % 0.0 k/mm3 (0-1) 01/04/20 12:22 Neutrophils # 15.7 K/mm3 (1.3-6.0) H 01/04/20 12:22 Lymphocytes # 1.06 k/mm3 (1.5-3.5) L 01/04/20 12:22 Monocytes # 1.0 k/mm3 (0.0-1.0) 01/04/20 12:22 Eosinophils # 0.0 k/mm3 (0.0-0.7) 01/04/20 12:22 Absolute Basophils 0.1 k/mm3 (0.0-0.1) 01/04/20 12:22 Sodium 132 mmol/L (132-142) 01/04/20 12:22 Plasma Sodium 141 mmol/L (130-142) 01/04/20 12:22 Potassium 4.5 mmol/L (3.4-4.6) 01/04/20 12:22 Chloride 96 mmol/L (97-106) L 01/04/20 12:22 Carbon Dioxide 21.2 mmol/L (24-32.6) L 01/04/20 12:22 Anion Gap 19.3 mmol/L (6.8-13.8) H 01/04/20 12:22 BUN 45 mg/dL (6-23) H D 01/04/20 12:22 Creatinine 2.20 mg/dL (0.4-1.4) H D 01/04/20 12:22 Est GFR (Non-Af Amer) 30 mL/min (60-130) L D 01/04/20 12:22 BUN/Creatinine Ratio 20.5 (9.0-21.6) 01/04/20 12:22 Random Glucose 655 mg/dL (70-110) H 01/04/20 12:22 Lactic Acid, Venous 5.2 mmol/L (0.4-2.0) H* 01/04/20 15:54 Calcium 9.5 mg/dL (7.9-10.9) 01/04/20 12:22 Calcium Adj for Albumin 9.8 mg/dL (8.4-10.2) 01/04/20 12:22 Magnesium 1.6 mg/dL (1.2-2.8) 01/04/20 12:22 Total Bilirubin 1.2 mg/dL (0.0-1.1) H 01/04/20 12:22 AST 16 U/L (0-48) 01/04/20 12:22 ALT 17 U/L (19-67) L 01/04/20 12:22 Alkaline Phosphatase 97 U/L (50-170) 01/04/20 12:22 Troponin I 0.055 ng/mL (0.00-0.10) 01/04/20 12:22 C-Reactive Prot, Quant 1.7 mg/dL (0.0-0.9) H 01/04/20 12:22 Total Protein 7.6 gm/dL (6.2-8.2) 01/04/20 12:22 Albumin 3.2 gm/dl (3.4-5.0) L 01/04/20 12:22 Urine Color Yellow 01/04/20 13:53 Urine Appearance Slightly cloudy (CLEAR) 01/04/20 13:53 Urine pH 5.5 pH (5.0-7.0) 01/04/20 13:53 Ur Specific [place] 1.010 SP.GR. (1.005-1.030) 01/04/20 13:53 Urine Protein Negative mg/dL (NEGATIVE) 01/04/20 13:53 Urine Glucose (UA) >=1000 mg/dL (NEGATIVE) H 01/04/20 13:53 Urine Ketones 5 mg/dL (NEGATIVE) 01/04/20 13:53 Urine Blood 50 /ul (NEGATIVE) H 01/04/20 13:53 Urine Nitrate Negative (NEGATIVE) 01/04/20 13:53 Urine Bilirubin Negative mg/dl (NEGATIVE) 01/04/20 13:53 Urine Urobilinogen Normal EU/dl (NORMAL) 01/04/20 13:53 Ur Leukocyte Esterase Negative /ul (NEGATIVE) 01/04/20 13:53 Urine RBC 0-5 /hpf (0-5) 01/04/20 13:53 Urine WBC 0-5 /hpf (0-5) 01/04/20 13:53 Ur Epithelial Cells 0-5 /hpf (0-5) 01/04/20 13:53 Urine Bacteria Trace (NONE) 01/04/20 13:53 Urine Yeast Trace (NONE) 01/04/20 13:53 Urine Culture Comments No culture indicated 01/04/20 13:53 Ethyl Alcohol Less than 3.0 mg/dL (0.0-10.0) 01/04/20 12:22 Serum Ketones Negative (NEGATIVE) 01/04/20 12:22 SARS-CoV-2 (PCR) Not detected (NotDetected) 01/04/20 13:48 Assessment/Plan - Narrative Narrative: 84-year-old male admitted to the hospital for suspected sepsis, lactic acidosis, hyperglycemia/diabetes, weakness and fatigue. Patient also with an acute kidney injury. Sepsis work-uppatient to receive second bolus of lactic Ringer's right now. Repeat lactic acid in 3 hours. Patient did receive a gram of Rocephin. Blood cultures pending. Patient is not showing signs of shock. Unsure of the source at this time as his chest x-ray did not show any infiltrates and his UA was clean. Will wait for cultures to return to make sure not missing anything. W ill wait to start him on antibiotics until his clinical picture becomes more clear. We will continue fluids after second bolus at 126 LR per hour. Repeat CBC in the morning to monitor leukocytosis. Hyperglycemia and diabetespatient home insulin restarted. Moderate sliding scale added. Will check sugars before meals at bedtime. Recent glucose was roughly 450, additional 20 units of lispro insulin given to patient right now. Patient to receive his long-acting insulin tonight. Recheck his sugars in 1 hour and will continue to monitor. Potassium within normal limits, will also continue to monitor this due to the amount of insulin that he is given at this time. Lactic acidosispatient been appropriately fluid resuscitated. Patient received antibiotics. Will repeat lactic acid as stated above. Acute kidney injurypatient is being fluid resuscitated at this time. We will continue fluids overnight. Patient does not have a history of CHF. Repeat BMP in the morning. Weakness and fatigue has resolved according to the patient. He is not altered when seen today. Patient is appropriate with his interaction and responses. Patient has no focal deficits neurologically or mentally. Patient is receiving heparin twice daily which should cover his A. fib as well as preventing clots from sepsis and decreased ambulation while in the hospital. SCDs to be worn while in bed. Consistent carbohydrate diet restarted. Again we will monitor his blood sugars. Nurse will call with any questions or concerns. Vital signs are stable patient is afebrile. - Assessment/Plan (1) Weakness Problem: Acute (2) Lactic acidosis due to diabetes mellitus Problem: Acute (3) Hyperglycemia Problem: Acute (4) Sepsis Problem: Suspected Qualifiers: Sepsis type: sepsis due to unspecified organism Sepsis acute organ dysfunction status: with acute organ dysfunction Severe sepsis acute organ dysfunction type: acute renal failure Acute renal failure type: unspecified Severe sepsis shock status: without septic shock Qualified Code(s): A41.9 - Sepsis, unspecified organism; R65.20 - Severe sepsis without septic shock; N17.9 - Acute kidney failure, unspecified (5) Leukocytosis Problem: Acute (6) Diabetes Problem: Acute (7) WIN (acute kidney injury) Problem: Acute
[2020-01-04 20:27] LABS: Anion Gap 21.9 mmol/L (6.8-13.8); BUN/Creatinine Ratio 23.9 (9.0-21.6); Calcium * 9.5 mg/dL (7.9-10.9); Carbon Dioxide 16.3 mmol/L (24-32.6); Estimated Creat Clear 26.4; Potassium 4.2 mmol/L (3.4-4.6)
[2020-01-04] MEDS: BRINZOLAMIDE 100 DROP BTL EACHEYE SCH (21:18)
[2020-01-04] MEDS: INSULIN GLARGINE,HUM.REC.ANLOG 100 UNITS/ML VIAL SC SCH (22:03)
[2020-01-05] MEDS: RINGER'S SOLUTION,LACTATED 1,000 ML IV PRN ×2 (00:19→08:26)
[2020-01-05] MEDS: HEPARIN SODIUM,PORCINE 5,000 UNITS/ML VIAL SC SCH ×2 (05:03→17:13)
[2020-01-05 06:52] LABS: Hematocrit 42.9 % (42.0-52.0); Hemoglobin 14.4 gm/dL (13.5-18.0); Mean Cell Volume 89.6 fl (78-100); Mean Corpuscular Hemoglobin 30.1 pg (27-31); Mean Corpuscular Hgb Conc 33.6 g/dl (32-36); Mean Platelet Volume 8.6 fl (8-11.3); Neutrophil # 15.6 K/mm3 (1.3-6.0); Neutrophil % 77.5 % (42-75.0); Platelet Count 217 K/mm3 (150-450); Red Blood Count 4.79 M/mm3 (4.7-6.0); Red Cell Distribution Width 12.7 % (11.5-14.0); White Blood Count 20.1 K/mm3 (4.0-10.5)
[2020-01-05 07:08] LABS: Albumin * 2.5 gm/dl (3.4-5.0); Anion Gap 9.3 mmol/L (6.8-13.8); BUN/Creatinine Ratio 25.9 (9.0-21.6); Bilirubin, Total 0.8 mg/dL (0.0-1.1); Ca. Corrected For Albumin 10.2 mg/dL (8.4-10.2); Calcium * 9.3 mg/dL (7.9-10.9); Carbon Dioxide 26.8 mmol/L (24-32.6); Potassium 4.1 mmol/L (3.4-4.6); Total Protein 6.3 gm/dL (6.2-8.2)
[2020-01-05] MEDS: INSULIN LISPRO 100 UNITS/ML VIAL SC SCH ×4 (08:01→20:56)
--- NOTE | 2020-01-05 10:57 | PN ---
Subjective - Date and Time Seen Date: 01/05/20 Time: 10:52 Subjective Narrative: Patient looks well today, feels well. Blood glucose back within appropriate range. Lactic acidosis has resolved. His vital signs are stable and he is afebrile. Only complaint is he still feels a little weak but otherwise no concerns. Patient's white blood cell count did increase from 18-20 overnight though. Objective - Review of Systems Generalized/Overall Review: Reports: Weakness. Denies: Chills, Fever EENTM: Reports: No Symptoms Reported Respiratory: Reports: No Symptoms Reported Cardiac: Reports: No Symptoms Reported Abdominal: Reports: No Symptoms Reported Genitourinary Symptoms: Reports: No Symptoms Reported Musculoskeletal Complaints: Reports: No Symptoms Reported Neurological: Reports: No Symptoms Reported Skin: Reports: No Symptoms Reported Endocrine: Reports: No Symptoms Reported - Vitals Vitals: Last Vital Signs Temp 37.3 C 01/05/20 10:00 Pulse 80 01/05/20 10:00 Resp 24 H 01/05/20 10:00 BP 123/61 01/05/20 10:00 Pulse Ox 92 L 01/05/20 10:00 - Abnormal Lab Findings Abnormal Lab Findings: Abnormal Lab Results 01/04/20 01/04/20 01/04/20 Range/Units 12:22 12:22 12:22 WBC 18.0 H (4.0-10.5) K/mm3 Immature Gran % (Auto) (0.001-0.429) % Immature Gran # (Auto) 0.06 H (0.000-0.0310) K/mm3 Neutrophils % 87.7 H (42-75.0) % Lymphocytes % 5.9 L (20-51) % Neutrophils # 15.7 H (1.3-6.0) K/mm3 Lymphocytes # 1.06 L (1.5-3.5) k/mm3 Monocytes # (0.0-1.0) k/mm3 Chloride 96 L (97-106) mmol/L Carbon Dioxide 21.2 L (24-32.6) mmol/L Anion Gap 19.3 H (6.8-13.8) mmol/L BUN 45 H D (6-23) mg/dL Creatinine 2.20 H D (0.4-1.4) mg/dL Est GFR (Non-Af Amer) 30 L D (60-130) mL/min BUN/Creatinine Ratio (9.0-21.6) Random Glucose 655 H (70-110) mg/dL Lactic Acid, Venous 6.6 H* (0.4-2.0) mmol/L Total Bilirubin 1.2 H (0.0-1.1) mg/dL AST (0-48) U/L ALT 17 L (19-67) U/L C-Reactive Prot, Quant 1.7 H (0.0-0.9) mg/dL Albumin 3.2 L (3.4-5.0) gm/dl Urine Glucose (UA) (NEGATIVE) mg/dL Urine Blood (NEGATIVE) /ul 01/04/20 01/04/20 01/04/20 Range/Units 13:53 15:54 19:05 WBC (4.0-10.5) K/mm3 Immature Gran % (Auto) (0.001-0.429) % Immature Gran # (Auto) (0.000-0.0310) K/mm3 Neutrophils % (42-75.0) % Lymphocytes % (20-51) % Neutrophils # (1.3-6.0) K/mm3 Lymphocytes # (1.5-3.5) k/mm3 Monocytes # (0.0-1.0) k/mm3 Chloride (97-106) mmol/L Carbon Dioxide (24-32.6) mmol/L Anion Gap (6.8-13.8) mmol/L BUN (6-23) mg/dL Creatinine (0.4-1.4) mg/dL Est GFR (Non-Af Amer) (60-130) mL/min BUN/Creatinine Ratio (9.0-21.6) Random Glucose (70-110) mg/dL Lactic Acid, Venous 5.2 H* 4.5 H* (0.4-2.0) mmol/L Total Bilirubin (0.0-1.1) mg/dL AST (0-48) U/L ALT (19-67) U/L C-Reactive Prot, Quant (0.0-0.9) mg/dL Albumin (3.4-5.0) gm/dl Urine Glucose (UA) >=1000 H (NEGATIVE) mg/dL Urine Blood 50 H (NEGATIVE) /ul 09/01/04/20 01/05/20 Range/Units 19:05 22:10 06:45 WBC 20.1 H (4.0-10.5) K/mm3 Immature Gran % (Auto) 0.50 H (0.001-0.429) % Immature Gran # (Auto) 0.11 H (0.000-0.0310) K/mm3 Neutrophils % 77.5 H (42-75.0) % Lymphocytes % 15.8 L (20-51) % Neutrophils # 15.6 H (1.3-6.0) K/mm3 Lymphocytes # (1.5-3.5) k/mm3 Monocytes # 1.1 H (0.0-1.0) k/mm3 Chloride (97-106) mmol/L Carbon Dioxide 16.3 L (24-32.6) mmol/L Anion Gap 21.9 H (6.8-13.8) mmol/L BUN 45 H (6-23) mg/dL Creatinine 1.88 H (0.4-1.4) mg/dL Est GFR (Non-Af Amer) 37 L D (60-130) mL/min BUN/Creatinine Ratio 23.9 H (9.0-21.6) Random Glucose 545 H (70-110) mg/dL Lactic Acid, Venous 4.1 H* (0.4-2.0) mmol/L Total Bilirubin (0.0-1.1) mg/dL AST (0-48) U/L ALT (19-67) U/L C-Reactive Prot, Quant (0.0-0.9) mg/dL Albumin (3.4-5.0) gm/dl Urine Glucose (UA) (NEGATIVE) mg/dL Urine Blood (NEGATIVE) /ul 01/05/20 Range/Units 06:45 WBC (4.0-10.5) K/mm3 Immature Gran % (Auto) (0.001-0.429) % Immature Gran # (Auto) (0.000-0.0310) K/mm3 Neutrophils % (42-75.0) % Lymphocytes % (20-51) % Neutrophils # (1.3-6.0) K/mm3 Lymphocytes # (1.5-3.5) k/mm3 Monocytes # (0.0-1.0) k/mm3 Chloride (97-106) mmol/L Carbon Dioxide (24-32.6) mmol/L Anion Gap (6.8-13.8) mmol/L BUN 38 H (6-23) mg/dL Creatinine 1.47 H D (0.4-1.4) mg/dL Est GFR (Non-Af Amer) 49 L D (60-130) mL/min BUN/Creatinine Ratio 25.9 H (9.0-21.6) Random Glucose 154 H D (70-110) mg/dL Lactic Acid, Venous (0.4-2.0) mmol/L Total Bilirubin (0.0-1.1) mg/dL AST 69 H (0-48) U/L ALT (19-67) U/L C-Reactive Prot, Quant (0.0-0.9) mg/dL Albumin 2.5 L (3.4-5.0) gm/dl Urine Glucose (UA) (NEGATIVE) mg/dL Urine Blood (NEGATIVE) /ul - Exam Constitutional: Present: Alert, Oriented x3, Elderly ENT Exam: Present: hard of hearing. Absent: nasal congestion, nasal drainage Respiratory: Present: lungs clear, normal breath sounds Cardiovascular/Chest: Present: regular rate, rhythm, no murmur Abdomen: Present: soft, nontender, nondistended Extremity: Absent: lower extremity edema Skin Exam: Present: normal color, warm/dry, other - no foot wounds. Absent: skin rash Neurologic: Present: alert, oriented x 3 Appearance: Present: appropriate appearance, appropriate insight Eye contact: Present: cooperative, good eye contact Thoughts: Present: normal thought pattern, normal mood /affect Assessment/Plan Plan Narrative: Trever did well overnight, his lab work all returned improved other than his white count which is elevated again. Unsure of the source of infection so unsure of which antibiotic start him on. Wondering if this was a mild stress reaction to his dehydration and hyperglycemia. His vital signs been stable and has been afebrile. As patient feels well and has no concerns at this time, will wait for cultures to come back before we start him on any other antibiotics. Will repeat CBC in the morning to see if his white count changes. Continue checking blood sugars before meals at bedtime. Continue insulin as directed. Sugars well controlled. Hypertension is well controlled. WIN has resolved. Patient back to baseline with kidney function. We will continue to monitor Patient is on consistent carbohydrate diet. Heparin for DVT prophylaxis. If white count trends downward tomorrow and he continues to feel well, likely discharge home tomorrow. Otherwise we will reassess patient to see if the source identifies itself as to why his white blood cell count continues to be elevated. Nurse to call questions or concerns. - Problems/Diagnosis (1) Weakness Problem: Acute (2) Lactic acidosis due to diabetes mellitus Problem: Acute (3) Hyperglycemia Problem: Acute (4) Sepsis Problem: Suspected Qualifiers: Sepsis type: sepsis due to unspecified organism Sepsis acute organ dysfunction status: with acute organ dysfunction Severe sepsis acute organ dysfunction type: acute renal failure Acute renal failure type: unspecified Severe sepsis shock status: without septic shock Qualified Code(s): A41.9 - Sepsis, unspecified organism; R65.20 - Severe sepsis without septic shock; N17.9 - Acute kidney failure, unspecified (5) Leukocytosis Problem: Acute (6) Diabetes Problem: Acute (7) WIN (acute kidney injury) Problem: Acute
[2020-01-05] MEDS: BRINZOLAMIDE 100 DROP BTL EACHEYE SCH ×2 (10:59→20:54)
[2020-01-05] MEDS ORDERED: SIMVASTATIN 20 MG TABLET PO SCH (17:00)
[2020-01-05] MEDS: NYSTATIN 15 APPL BTL TP SCH ×2 (17:12→20:54)
[2020-01-05] MEDS: INSULIN GLARGINE,HUM.REC.ANLOG 100 UNITS/ML VIAL SC SCH (20:55)
[2020-01-06] MEDS: HEPARIN SODIUM,PORCINE 5,000 UNITS/ML VIAL SC SCH (05:07)
[2020-01-06 06:45] LABS: Hematocrit 42.4 % (42.0-52.0); Mean Cell Volume 90.4 fl (78-100); Mean Corpuscular Hemoglobin 29.9 pg (27-31); Neutrophil # 10.7 K/mm3 (1.3-6.0); Neutrophil % 70.6 % (42-75.0); Platelet Count 221 K/mm3 (150-450); Red Blood Count 4.69 M/mm3 (4.7-6.0); Red Cell Distribution Width 12.9 % (11.5-14.0); White Blood Count 15.2 K/mm3 (4.0-10.5)
[2020-01-06 06:51] LABS: Anion Gap 11.1 mmol/L (6.8-13.8); Calcium * 8.7 mg/dL (7.9-10.9); Carbon Dioxide 27.4 mmol/L (24-32.6); Estimated Creat Clear 39.4; Potassium 3.5 mmol/L (3.4-4.6)
[2020-01-06] MEDS: INSULIN LISPRO 100 UNITS/ML VIAL SC SCH ×2 (07:31→11:21)
[2020-01-06] MEDS: BRINZOLAMIDE 100 DROP BTL EACHEYE SCH (09:08)
[2020-01-06] MEDS: NYSTATIN 15 APPL BTL TP SCH (09:08)
--- NOTE | 2020-01-06 13:21 | DS ---
(1) WIN (acute kidney injury) Problem: Acute (2) Dehydration Problem: Acute (3) Hyperglycemia without ketosis Problem: Acute Date of Discharge:: 01/06/20 Hospital Course: Trever is an 84 yo male that was admitted for acute kidney injury and hyperglycemia without ketosis. There was initially concern for sepsis although no source of infection was ever identified and he resolved with fluid treatment only. He is doing well today and blood sugars have improved from 500 to normal. Renal function has improved with Creatinine going from 1.88 to 1.2. He will be discharged to home today and was educated to stay better hydrated. Procedures Performed: none Results and Findings: Pending Mircobiology Results 01/04/20 13:55 Blood Blood Culture - Preliminary NO GROWTH 24 HOURS 01/04/20 13:35 Blood Blood Culture - Preliminary NO GROWTH 24 HOURS Lab Pending Results 01/04/20 12:22: WBC 18.0 H, RBC 5.69, Hgb 17.1, Hct 50.9, MCV 89.5, MCH 30.1, MCHC 33.6, RDW 12.3, Plt Count 259, MPV 8.9, Immature Gran % (Auto) 0.30, Immature Gran # (Auto) 0.06 H, Neutrophils % 87.7 H, Lymphocytes % 5.9 L, Monocytes % 5.7, Eosinophils % 0.0, Basophils % 0.4, Nucleated RBC % 0.0, Neutrophils # 15.7 H, Lymphocytes # 1.06 L, Monocytes # 1.0, Eosinophils # 0.0, Absolute Basophils 0.1 01/04/20 12:22: Sodium 132, Plasma Sodium 141, Potassium 4.5, Chloride 96 L, Carbon Dioxide 21.2 L, Anion Gap 19.3 H, BUN 45 H D, Creatinine 2.20 H D, Est GFR (Non-Af Amer) 30 L D, BUN/Creatinine Ratio 20.5, Random Glucose 655 H, Calcium 9.5, Calcium Adj for Albumin 9.8, Magnesium 1.6, Total Bilirubin 1.2 H, AST 16, ALT 17 L, Alkaline Phosphatase 97, Troponin I 0.055, C-Reactive Prot, Quant 1.7 H, Total Protein 7.6, Albumin 3.2 L, Ethyl Alcohol Less than 3.0 01/04/20 12:22: Serum Ketones Negative 01/04/20 12:22: Lactic Acid, Venous 6.6 H* 01/04/20 13:48: SARS-CoV-2 (PCR) Not detected 01/04/20 13:53: Urine Color Yellow, Urine Appearance Slightly cloudy, Urine pH 5.5, Ur Specific [place] 1.010, Urine Protein Negative, Urine Glucose (UA) >=1000 H, Urine Ketones 5, Urine Blood 50 H, Urine Nitrate Negative, Urine Bilirubin Negative, Urine Urobilinogen Normal, Ur Leukocyte Esterase Negative, Urine RBC 0-5, Urine WBC 0-5, Ur Epithelial Cells 0-5, Urine Bacteria Trace, Urine Yeast Trace, Urine Culture Comments No culture indicated 01/04/20 15:54: Lactic Acid, Venous 5.2 H* 01/04/20 19:05: Lactic Acid, Venous 4.5 H* 01/04/20 19:05: Sodium 133, Plasma Sodium 140, Potassium 4.2, Chloride 99, Carbon Dioxide 16.3 L, Anion Gap 21.9 H, BUN 45 H, Creatinine 1.88 H, Est GFR (Non-Af Amer) 37 L D, BUN/Creatinine Ratio 23.9 H, Random Glucose 545 H, Calcium 9.5 01/04/20 22:10: Lactic Acid, Venous 4.1 H* 01/05/20 06:45: WBC 20.1 H, RBC 4.79, Hgb 14.4, Hct 42.9, MCV 89.6, MCH 30.1, MCHC 33.6, RDW 12.7, Plt Count 217, MPV 8.6, Immature Gran % (Auto) 0.50 H, Immature Gran # (Auto) 0.11 H, Neutrophils % 77.5 H, Lymphocytes % 15.8 L, Monocytes % 5.7, Eosinophils % 0.2, Basophils % 0.3, Nucleated RBC % 0.0, Neutrophils # 15.6 H, Lymphocytes # 3.17, Monocytes # 1.1 H, Eosinophils # 0.1, Absolute Basophils 0.1 01/05/20 06:45: Sodium 137, Plasma Sodium 138, Potassium 4.1, Chloride 105, Car bon Dioxide 26.8, Anion Gap 9.3, BUN 38 H, Creatinine 1.47 H D, Est GFR (Non-Af Amer) 49 L D, BUN/Creatinine Ratio 25.9 H, Random Glucose 154 H D, Calcium 9.3, Calcium Adj for Albumin 10.2, Total Bilirubin 0.8, AST 69 H, ALT 21, Alkaline Phosphatase 68, Total Protein 6.3, Albumin 2.5 L 01/05/20 06:45: Lactic Acid, Venous 1.4 01/06/20 06:28: WBC 15.2 H D, RBC 4.69 L, Hgb 14.0, Hct 42.4, MCV 90.4, MCH 29.9, MCHC 33.0, RDW 12.9, Plt Count 221, MPV 9.0, Immature Gran % (Auto) 0.50 H, Immature Gran # (Auto) 0.08 H, Neutrophils % 70.6, Lymphocytes % 21.8, Monocytes % 5.9, Eosinophils % 0.9, Basophils % 0.3, Nucleated RBC % 0.0, Neutrophils # 10.7 H, Lymphocytes # 3.31, Monocytes # 0.9, Eosinophils # 0.1, Absolute Basophils 0.0 01/06/20 06:28: Sodium 137, Plasma Sodium 137, Potassium 3.5, Chloride 102, Carbon Dioxide 27.4, Anion Gap 11.1, BUN 24 H, Creatinine 1.26, Est GFR (Non-Af Amer) 58 L, BUN/Creatinine Ratio 19.0, Random Glucose 96 D, Calcium 8.7 Discharge Location: Home Disposition: Home self-care Condition: Fair Discharge Activity: Activity as tolerated Discharge Diet: Consistent carbs Referrals: Jayce Gross DO [Primary Care Provider] - One Week (May do phone or video visit) Problem Oriented Discharge Instructions to Patient/Family: Acute Kidney Injury, Adult, Dehydration, Adult, [id number] Complete Home Medications List: Complete Home Medication List: Blood Sugar Diagnostic, Drum [Accu-Chek Compact Plus Strips] 1 ea MC BID 06/19/14 Brinzolamide [Azopt 1% Ophthalmic Suspension] 1 drp EACHEYE BID 06/19/14 Multivitamins [Multivitamin Elmer] 1 cap PO DAILY 06/19/14 insulin glargine 100 unit/mL subcutaneous solution 50 unit SUBCUT HS ml 08/21/18 simvastatin 40 mg tablet 20 mg PO QPM #45 tab 10/04/18 metformin 500 mg tablet 1,000 mg PO BID #360 tab 10/08/18 Aspirin [Aspirin EC] 81 mg PO DAILY 01/04/20 Glimepiride 8 mg PO DAILY 01/04/20 Forms: Patient Portal Registration
[2020-01-06 16:23] VITALS: BP 142/82
== END 2020-01-06 16:32 | disposition home or self-care (01) | DRG 682 ==
LOC: ER 12:04 → MS 15:06
PROVIDERS: ADMIT Family Medicine; ATTEND Family Medicine
DX: E11.65 Type 2 diabetes mellitus with hyperglycemia; R32 Unspecified urinary incontinence; E87.2 Acidosis; R26.89 Other abnormalities of gait and mobility; G92 Toxic encephalopathy; Z79.4 Long term (current) use of insulin; I48.91 Unspecified atrial fibrillation; E86.0 Dehydration; Z11.59 Encounter for screening for other viral diseases; N17.9 Acute kidney failure, unspecified

== ENCOUNTER 2020-01-16 12:29 | Observation (INO) ==
[2020-01-16] MEDS ORDERED: INSULIN REGULAR, HUMAN 100 UNITS/ML VIAL IV ONE ×2 (12:52→14:05)
[2020-01-16] MEDS ORDERED: NORMAL SALINE 1,000 ML IV ONE ×4 (12:52→20:55)
[2020-01-16 13:15] LABS: Hemoglobin 16.8 gm/dL (13.5-18.0); Mean Cell Volume 91.6 fl (78-100); Mean Corpuscular Hemoglobin 30.2 pg (27-31); Mean Corpuscular Hgb Conc 32.9 g/dl (32-36); Mean Platelet Volume 8.7 fl (8-11.3); Neutrophil # 15.1 K/mm3 (1.3-6.0); Neutrophil % 89.1 % (42-75.0); Platelet Count 399 K/mm3 (150-450); Red Blood Count 5.57 M/mm3 (4.7-6.0); White Blood Count 16.9 K/mm3 (4.0-10.5)
[2020-01-16 13:25] LABS: Urine Bilirubin Negative (NEGATIVE); Urine Blood 25 /ul (NEGATIVE); Urine Ketone 15 mg/dL (NEGATIVE); Urine Nitrite Negative (NEGATIVE); Urine Protein Negative (NEGATIVE); Urine Urobilinogen Normal (NORMAL)
[2020-01-16 13:31] LABS: ALT 28 U/L (19-67); AST 11 U/L (0-48); Albumin * 3.3 gm/dl (3.4-5.0); Alkaline Phosphatase * 88 U/L (50-170); Anion Gap 21.6 mmol/L (6.8-13.8); BUN/Creatinine Ratio 31.3 (9.0-21.6); Bilirubin, Total 0.7 mg/dL (0.0-1.1); Blood Urea Nitrogen 62 mg/dL (6-23); CK Total * 47 U/L (0-259); CRP 0.7 mg/dL (0.0-0.9); Ca. Corrected For Albumin 10.1 mg/dL (8.4-10.2); Calcium * 9.9 mg/dL (7.9-10.9); Carbon Dioxide 19.4 mmol/L (24-32.6); Chloride 104 mmol/L (97-106); Sodium 140 mmol/L (132-142)
[2020-01-16 13:47] LABS: Urine Appearance Clear (CLEAR); Urine Color Pale Yellow
[2020-01-16 13:48] LABS: Urine Amorphous Sediment Moderate - 2+ (NONE-FEW); Urine Bacteria 3+; Urine RBC TRACE /hpf (0-5); Urine WBC TRACE /hpf (0-5)
[2020-01-16 14:08] LABS: Glucose * 776 mg/dL (70-110)
--- NOTE | 2020-01-16 14:34 | ERNOTE ---
Medical Problem HPI - Narrative Date of Service: 01/16/20 - General Chief Complaint: Diabetes Related Problem Time Seen by Provider: 01/16/20 12:40 Source: patient, family - Immun/Allergies/Home Medications Immunizations: IMMUNIZATION HX Immunizations Up to Date Yes History of Influenza Vaccine Yes Hx Pneumococcal Vaccination More Information Required Allergies/Adverse Reactions: Allergies Penicillins Adverse Reaction (Mild, Verified 01/16/20 12:36) "DEATHLY ILL" pioglitazone HCl [From Actos] Adverse Reaction (Mild, Verified 01/16/20 12:36) "ZOMBIE LIKE" Home Medications: HOME MEDICATIONS Blood Sugar Diagnostic, Drum [Accu-Chek Compact Plus Strips] 1 ea MC BID 06/19/14 [Last Taken Unknown] Brinzolamide [Azopt 1% Ophthalmic Suspension] 1 drp EACHEYE BID 06/19/14 [Last Taken Unknown] Multivitamins [Multivitamin Elmer] 1 cap PO DAILY 06/19/14 [Last Taken Unknown] insulin glargine 100 unit/mL subcutaneous solution 50 unit SUBCUT HS ml 08/21/18 [Last Taken Unknown] simvastatin 40 mg tablet 20 mg PO QPM #45 tab 10/04/18 [Last Taken Unknown] metformin 500 mg tablet 1,000 mg PO BID #360 tab 10/08/18 [Last Taken Unknown] Aspirin [Aspirin EC] 81 mg PO DAILY 01/04/20 [Last Taken Unknown] Glimepiride 8 mg PO DAILY 01/04/20 [Last Taken Unknown] oxybutynin chloride 5 mg tablet,extended release 24 hr 5 mg PO DAILY #30 tab 01/06/20 [Last Taken Unknown] - History of Present History Narrative: patient presents to ed with c/o weakness. pararmedics responded to help up and checked blod sugar and convinced patient to come to hospital for treatment as bs to high to read Timing: getting worse Severity: moderate Modifying Factors - (Improves): Present: other - nothing Modifying Factors - (Worsens): Present: other - nothing Review of Systems - Review of Systems Constitutional: Present: See HPI, weakness, fatigue, malaise EYE: Present: no symptoms reported ENT: Present: no symptoms reported Respiratory: Present: no symptoms reported Cardiology: Present: no symptoms reported Gastrointestinal/Abdominal: Present: no symptoms reported Genitourinary: Present: no symptoms reported Musculoskeletal: Present: no symptoms reported Skin: Present: no symptoms reported Neurological: Present: no symptoms reported Endocrine: Present: no symptoms reported Hematologic/Lymphatic: Present: no symptoms reported Psych: Present: no symptoms reported All Other Systems: All systems neg except as marked Medical History (Last Reviewed 01/16/20 @ 12:47 by Itzel Nagy RN) Dermatitis, unspecified (Acute) Onset Date: 09/18/18 Dr. Nicole Patton. [facility]. 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, 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 Highest education level completed: high school graduate Service: Yes branch: [employer] status: retired Tobacco: Smoking Status: Former smoker Alcohol: alcohol intake: former Substance Use: substance use type: does not use Dietary Habits: caffeine: No Amirah/Judaism: special amirah needs: No Physical Exam - Physical Exam General Appearance: Present: mild distress Head Exam: Present: normal inspection, no evidence of injury Eye Exam: Normal inspection: bilateral, PERRL: bilateral, EOMI: bilateral Ears, Nose, Throat: Present: normal ENT inspection, normal pharynx Neck: Present: normal inspection, nontender Respiratory: Present: no respiratory distress, normal breath sounds, no acc essory muscle use, chest nontender, lungs clear Cardiovascular/Chest: Present: irregularly irregular Gastrointestinal/Abdominal: Present: normal bowel sounds, nontender, nondistended, soft, no organomegaly Back Exam: Present: normal inspection, normal range of motion, no CVA tenderness, no vertebral tenderness Extremity Exam: Present: normal inspection, non-tender, normal range of motion, no edema Neurological Exam: Present: alert, oriented, normal mood/affect, no motor/ sensory deficits Skin Exam: Present: normal color, warm/dry Progress - Date and Time Seen: Date and Time: 01/16/20 14:31 condition unchanged case discussed with dr garay, to admit for hyperglycmia - Results and Orders Patient's Lab Results:: I have reviewed the patient's lab results. - Vital Signs Patient's Vital Signs:: I have reviewed the patient's vital signs. Vital Signs: Vital Signs 01/16/20 12:31 01/16/20 12:36 01/16/20 13:45 Temperature 36.9 C Pulse Rate 107 H 103 H 101 H Respiratory Rate 19 22 H Blood Pressure 171/89 H 154/94 H O2 Sat by Pulse Oximetry 95 97 01/16/20 14:00 Temperature Pulse Rate 101 H Respiratory Rate 22 H Blood Pressure 155/84 H O2 Sat by Pulse Oximetry 95 - EKG EKG #1 EKG: atrial fibrillation EKG read: Interp. by me - X-Ray X-Ray #1 X-Ray: chest - no acute process Interpretation: Discd w/ radiologist - Progress/Reassessment Chief Complaint: Diabetes Related Problem Progress:: Unchanged - Transfer of Care Expected Disposition: Admit Plan - Plan Plan: to admit to hospital Departure Clinical Impression: Lactic acidosis due to diabetes mellitus, Hyperglycemia due to diabetes mellitus - Departure Disposition: Short Term Hospital Inpatient Condition: Serious Referrals: Jayce Gross DO [Primary Care Provider] -
[2020-01-16] MEDS: CIPROFLOXACIN IN 5 % DEXTROSE 400 MG/200 ML BAG IV SCH (15:55)
--- NOTE | 2020-01-16 16:00 | HP ---
Chief Complaint - Chief Complaint Date of Service: 01/16/20 Time of Service: 05:40 Chief Complaint: hyperglycemia History of Present Illness: History obtained mostly from ERP and his chart. EMS was sent to his home today to help him up off the floor, and did a glucose check, and their meter read "high" so he was brought to our ED. He was disheveled and clothes were soaked in urine. He answers simple questions, but does not give detailed specifics. Workup in the ED found a glucose of 776, pH 7.35, serum ketones negative. UA positive for glucose, blood, 3+ bacteria. WBC elevated to 16.9, elevated neutrophils. Lactate of 2.6. Decreased GFR of 34, down from 58 on 01/06/20, and elevated creatinine of 1.98, up from 1.26 on the 05 of January. He was given 2 L of NS, and 14 U humulin. Glucose coming down to the 400's. Vitals ar e normal, with the exception of mildly high BP of 150's/70's. On exam, he denies recent illness or pain, but can not give specifics regarding the EMS call. He was recently admitted to our facility with hyperglycemia without ketosis and acute kidney injury. There was question of sepsis initially during that hospitalization, but no source was found. Medical History (Last Reviewed 01/16/20 @ 16:04 by Sirena King RN) Dermatitis, unspecified (Acute) Onset Date: 09/18/18 Dr. Nicole Patton. [facility]. 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, 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 Highest education level completed: high school graduate Service: Yes branch: [place] status: retired Tobacco: Smoking Status: Former smoker Alcohol: alcohol intake: former Substance Use: substance use type: does not use Dietary Habits: caffeine: No Amirah/Adventist: special amirah needs: No Review Of Systems (GEN) - Review of Systems Respiratory: Present: No Symptoms Reported Abdominal: Present: No Symptoms Reported Skin: Present: No Symptoms Reported, Other - pt denied concerns Immunizations: IMMUNIZATION HX Immunizations Up to Date Yes History of Influenza Vaccine Yes Hx Pneumococcal Vaccination More Information Required Allergies/Adverse Reactions: Allergies Allergy/AdvReac Type Severity Reaction Status Date / Time Penicillins AdvReac Mild "DEATHLY Verified 01/16/20 16:04 ILL" pioglitazone HCl [From Actos] AdvReac Mild "ZOMBIE Verified 01/16/20 16:04 LIKE" Home Medications: HOME MEDICATIONS Glimepiride 4 mg PO DAILY 01/04/20 [Last Taken Unknown] oxybutynin chloride 5 mg tablet,extended release 24 hr 5 mg PO DAILY #30 tab 01/06/20 [Last Taken Unknown] Dorzolamide HCl/Pf [Dorzolamide 2% Eye Drop] 1 drp EACHEYE BID 01/16/20 [Last Taken Unknown] Latanoprost/Pf [Latanoprost 0.005% Eye Drop] 1 drp EACHEYE HS 01/16/20 [Last Taken Unknown] Exam - Exam Vital Signs: Vital Signs - Last Taken Temp 36.9 C 01/16/20 15:54 Pulse 99 01/16/20 15:54 Resp 18 01/16/20 15:54 BP 159/73 H 01/16/20 15:54 Pulse Ox 93 01/16/20 15:54 Constitutional: Present: Alert, Elderly - States "February" as month, unable to state location ENT Exam: Present: other - dry mucous membranes Respiratory: Present: no respiratory distress Extremity: Absent: lower extremity edema Skin Exam: Present: skin rash - erythematous posterior & medial upper thighs Appearance: Present: impaired remote memory Eye contact: Present: good eye contact Diagnostic Studies: Abnormal Lab Results 01/16/20 01/16/20 01/16/20 Range/Units 13:05 13:05 13:05 WBC 16.9 H (4.0-10.5) K/mm3 Immature Gran # (Auto) 0.06 H (0.000-0.0310) K/mm3 Neutrophils % 89.1 H (42-75.0) % Lymphocytes % 8.0 L (20-51) % Neutrophils # 15.1 H (1.3-6.0) K/mm3 Lymphocytes # 1.35 L (1.5-3.5) k/mm3 pCO2 (35.0-48.0) mmHg HCO3 (21.0-28.0) mmol/L Total CO2 (19.0-24.0) mmol/L Base Excess (-2.0-3.0) mmol/L Plasma Sodium 151 H (130-142) mmol/L Potassium 5.0 H (3.4-4.6) mmol/L Carbon Dioxide 19.4 L (24-32.6) mmol/L Anion Gap 21.6 H (6.8-13.8) mmol/L BUN 62 H (6-23) mg/dL Creatinine 1.98 H (0.4-1.4) mg/dL Est GFR (Non-Af Amer) 34 L D (60-130) mL/min BUN/Creatinine Ratio 31.3 H (9.0-21.6) Random Glucose 776 H (70-110) mg/dL Lactic Acid, Venous 2.6 H* (0.4-2.0) mmol/L Albumin 3.3 L (3.4-5.0) gm/dl Urine Glucose (UA) (NEGATIVE) mg/dL Urine Blood (NEGATIVE) /ul Amorphous Sediment (NONE-FEW) Urine Bacteria (NONE) 01/16/20 01/16/20 Range/Units 13:13 13:25 WBC (4.0-10.5) K/mm3 Immature Gran # (Auto) (0.000-0.0310) K/mm3 Neutrophils % (42-75.0) % Lymphocytes % (20-51) % Neutrophils # (1.3-6.0) K/mm3 Lymphocytes # (1.5-3.5) k/mm3 pCO2 30.6 L (35.0-48.0) mmHg HCO3 16.6 L (21.0-28.0) mmol/L Total CO2 17.5 L (19.0-24.0) mmol/L Base Excess -7.4 L (-2.0-3.0) mmol/L Plasma Sodium (130-142) mmol/L Potassium (3.4-4.6) mmol/L Carbon Dioxide (24-32.6) mmol/L Anion Gap (6.8-13.8) mmol/L BUN (6-23) mg/dL Creatinine (0.4-1.4) mg/dL Est GFR (Non-Af Amer) (60-130) mL/min BUN/Creatinine Ratio (9.0-21.6) Random Glucose (70-110) mg/dL Lactic Acid, Venous (0.4-2.0) mmol/L Albumin (3.4-5.0) gm/dl Urine Glucose (UA) >=1000 H (NEGATIVE) mg/dL Urine Blood 25 H (NEGATIVE) /ul Amorphous Sediment Moderate - 2+ H (NONE-FEW) Urine Bacteria 3+ H (NONE) Laboratory Results WBC 16.9 K/mm3 (4.0-10.5) H 01/16/20 13:05 RBC 5.57 M/mm3 (4.7-6.0) 01/16/20 13:05 Hgb 16.8 gm/dL (13.5-18.0) 01/16/20 13:05 Hct 51.0 % (42.0-52.0) 01/16/20 13:05 MCV 91.6 fl (78-100) 01/16/20 13:05 MCH 30.2 pg (27-31) 01/16/20 13:05 MCHC 32.9 g/dl (32-36) 01/16/20 13:05 RDW 13.0 % (11.5-14.0) 01/16/20 13:05 Plt Count 399 K/mm3 (150-450) 01/16/20 13:05 MPV 8.7 fl (8-11.3) 01/16/20 13:05 Immature Gran % (Auto) 0.40 % (0.001-0.429) 01/16/20 13:05 Immature Gran # (Auto) 0.06 K/mm3 (0.000-0.0310) H 01/16/20 13:05 Neutrophils % 89.1 % (42-75.0) H 01/16/20 13:05 Lymphocytes % 8.0 % (20-51) L 01/16/20 13:05 Monocytes % 2.1 % (0.0-9) 01/16/20 13:05 Eosinophils % 0.0 % (0.0-3.0) 01/16/20 13:05 Basophils % 0.4 % (0.0-1.0) 01/16/20 13:05 Nucleated RBC % 0.0 k/mm3 (0-1) 01/16/20 13:05 Neutrophils # 15.1 K/mm3 (1.3-6.0) H 01/16/20 13:05 Lymphocytes # 1.35 k/mm3 (1.5-3.5) L 01/16/20 13:05 Monocytes # 0.4 k/mm3 (0.0-1.0) 01/16/20 13:05 Eosinophils # 0.0 k/mm3 (0.0-0.7) 01/16/20 13:05 Absolute Basophils 0.1 k/mm3 (0.0-0.1) 01/16/20 13:05 pCO2 30.6 mmHg (35.0-48.0) L 01/16/20 13:25 pO2 90.8 mmHg (83.0-108.0) 01/16/20 13:25 HCO3 16.6 mmol/L (21.0-28.0) L 01/16/20 13:25 Total CO2 17.5 mmol/L (19.0-24.0) L 01/16/20 13:25 Base Excess -7.4 mmol/L (-2.0-3.0) L 01/16/20 13:25 ABG pH 7.35 (7.35-7.45) 01/16/20 13:25 ABG O2 Sat (Measured) 96.7 % (94.0-98.0) 01/16/20 13:25 Sodium 140 mmol/L (132-142) 01/16/20 13:05 Plasma Sodium 151 mmol/L (130-142) H 01/16/20 13:05 Potassium 5.0 mmol/L (3.4-4.6) H 01/16/20 13:05 Chloride 104 mmol/L (97-106) 01/16/20 13:05 Carbon Dioxide 19.4 mmol/L (24-32.6) L 01/16/20 13:05 Anion Gap 21.6 mmol/L (6.8-13.8) H 01/16/20 13:05 BUN 62 mg/dL (6-23) H 01/16/20 13:05 Creatinine 1.98 mg/dL (0.4-1.4) H 01/16/20 13:05 Est GFR (Non-Af Amer) 34 mL/min (60-130) L D 01/16/20 13:05 BUN/Creatinine Ratio 31.3 (9.0-21.6) H 01/16/20 13:05 Random Glucose 776 mg/dL (70-110) H 01/16/20 13:05 Lactic Acid, Venous 2.6 mmol/L (0.4-2.0) H* 01/16/20 13:05 Calcium 9.9 mg/dL (7.9-10.9) 01/16/20 13:05 Calcium Adj for Albumin 10.1 mg/dL (8.4-10.2) 01/16/20 13:05 Total Bilirubin 0.7 mg/dL (0.0-1.1) 01/16/20 13:05 AST 11 U/L (0-48) 01/16/20 13:05 ALT 28 U/L (19-67) 01/16/20 13:05 Alkaline Phosphatase 88 U/L (50-170) 01/16/20 13:05 Creatine Kinase 47 U/L (0-259) 01/16/20 13:05 Troponin I 0.026 ng/mL (0.00-0.10) 01/16/20 12:05 C-Reactive Prot, Quant 0.7 mg/dL (0.0-0.9) 01/16/20 13:05 Total Protein 8.0 gm/dL (6.2-8.2) 01/16/20 13:05 Albumin 3.3 gm/dl (3.4-5.0) L 01/16/20 13:05 Urine Color Pale yellow 01/16/20 13:13 Urine Appearance Clear (CLEAR) 01/16/20 13:13 Urine pH 5.0 pH (5.0-7.0) 01/16/20 13:13 Ur Specific [place] 1.010 SP.GR. (1.005-1.030) 01/16/20 13:13 Urine Protein Negative mg/dL (NEGATIVE) 01/16/20 13:13 Urine Glucose (UA) >=1000 mg/dL (NEGATIVE) H 01/16/20 13:13 Urine Ketones 15 mg/dL (NEGATIVE) 01/16/20 13:13 Urine Blood 25 /ul (NEGATIVE) H 01/16/20 13:13 Urine Nitrate Negative (NEGATIVE) 01/16/20 13:13 Urine Bilirubin Negative mg/dl (NEGATIVE) 01/16/20 13:13 Urine Urobilinogen Normal EU/dl (NORMAL) 01/16/20 13:13 Ur Leukocyte Esterase Negative /ul (NEGATIVE) 01/16/20 13:13 Urine RBC Trace /hpf (0-5) 01/16/20 13:13 Urine WBC Trace /hpf (0-5) 01/16/20 13:13 Ur Epithelial Cells Trace /hpf (0-5) 01/16/20 13:13 Amorphous Sediment Moderate - 2+ (NONE-FEW) H 01/16/20 13:13 Urine Bacteria 3+ (NONE) H 01/16/20 13:13 Urine Culture Comments Culture to follow 01/16/20 13:13 Serum Ketones Negative (NEGATIVE) 01/16/20 13:05 Assessment/Plan - Assessment/Plan (1) Hyperosmolar hyperglycemic state (HHS) Assessment: I am unsure of his baseline mentation. His initial glucose here was 776, negative ketones. With negative ketones and pH of 7.35, he is not currently in DKA, though with elevated anion gap of 21.6 (improved to 17) and CO2 of 19.4 (improved to 25.3), he may have been heading towards DKA. Osmolality pending. He appears dehydrated on physical exam. With fluids and correction of glucose and lactate, he could be ready for DC as soon as tomorrow, but will need to continue to assess his mentation and ability to care for himself at home. Will allow diabetic diet. Problem: Suspected (2) Hyperglycemia without ketosis Assessment: Improving with fluids and 14 U insulin. Will administer another bolus of NS, and start low dose sliding scale insulin. His sodium is 140 initially, and 147 on recheck, so after this bolus, will give 1/2 NS and recheck CMP this evening. His A1C was 8.5 in March, and his diabetes may have progressed since then. He also has a UTI, which will further elevated glucose levels. Problem: Acute (3) Urinary tract infection Assessment: Cipro has been started. The UTI is probably source of his elevation in WBC. Procalcitonin pending. I am unaware of his baseline mentation, and will discuss this with his family or his PCP tomorrow. With normal vitals, he is not septic, though an infection will increase his glucose. On exam, his foreskin does not retract. He does not appear to be able to care for himself at home. Problem: Acute (4) Dermatitis, unspecified Assessment: Can use zinc oxide on erythematous skin as a barrier. No open wounds seen during my exam. Problem: Acute (5) Diabetes Assessment: Continue home glimepiride in the morning. A1C was 8.5 in March. Problem: Acute (6) WIN (acute kidney injury) Assessment: Likely due to dehydration. His DC summary from 01/05 mentions encouraging him to drink more water, so this is a recurring problem. He may not be able to care for his needs at home, and correction placement will likely avoid further hospitalizations. Appreciate case management assistance with discharge planning. Problem: Acute (7) Hypernatremia Assessment: I anticipate this is secondary to dehydration. As his glucose normalizes, his sodium level may rise further. Will give 1/2 NS overnight. Problem: Acute (8) Lactic acidosis Assessment: Lactate has thus far been 2.6, 2.7, then 2.8 despite fluid administration. His vitals are normal, so sepsis unlikely. He is not complaining of pain, so abdominal ischemia unlikely. Repeat troponin pending. His pH was 7.35, so his lactate may be high because he's borderline acidotic. Alcohol use can also contribute to lactatemia, but ETOH not obtained in the ED. Lactate was also elevated during his stay last week, up to 6.6. Problem: Acute
[2020-01-16 16:17] LABS: Albumin * 3.3 gm/dl (3.4-5.0); BUN/Creatinine Ratio 27.4 (9.0-21.6); Bilirubin, Total 0.6 mg/dL (0.0-1.1); Calcium * 9.8 mg/dL (7.9-10.9); Carbon Dioxide 25.3 mmol/L (24-32.6); Potassium 4.3 mmol/L (3.4-4.6); Total Protein 8.1 gm/dL (6.2-8.2)
[2020-01-16] MEDS: 0.5 NORMAL SALINE 1,000 ML IV PRN (17:10)
[2020-01-16] MEDS: INSULIN LISPRO 100 UNITS/ML VIAL SC SCH ×2 (17:19→21:28)
[2020-01-16] MEDS ORDERED: ZINC OXIDE 60 APPL TUBE TP PRN (18:21)
[2020-01-16 20:11] LABS: Hematocrit 50.8 % (42.0-52.0); Hemoglobin 16.3 gm/dL (13.5-18.0); Mean Cell Volume 94.2 fl (78-100); Mean Corpuscular Hemoglobin 30.2 pg (27-31); Mean Corpuscular Hgb Conc 32.1 g/dl (32-36); Mean Platelet Volume 8.3 fl (8-11.3); Neutrophil # 14.8 K/mm3 (1.3-6.0); Neutrophil % 78.9 % (42-75.0); Platelet Count 375 K/mm3 (150-450); Red Blood Count 5.39 M/mm3 (4.7-6.0); Red Cell Distribution Width 13.2 % (11.5-14.0); White Blood Count 18.8 K/mm3 (4.0-10.5)
[2020-01-16 20:29] LABS: Albumin * 3.2 gm/dl (3.4-5.0); Anion Gap 17.1 mmol/L (6.8-13.8); Bilirubin, Total 0.7 mg/dL (0.0-1.1); Ca. Corrected For Albumin 9.8 mg/dL (8.4-10.2); Calcium * 9.5 mg/dL (7.9-10.9); Potassium 4.1 mmol/L (3.4-4.6); Total Protein 7.9 gm/dL (6.2-8.2)
[2020-01-16 20:40] LABS: BUN/Creatinine Ratio 25.3 (9.0-21.6)
[2020-01-16 20:43] LABS: Troponin I 0.02 ng/mL (0.00-0.10)
[2020-01-16] MEDS: LATANOPROST 25 DROP BTL EACHEYE SCH (21:21)
[2020-01-16] MEDS: DORZOLAMIDE HCL 100 DROP BTL EACHEYE SCH (21:23)
[2020-01-17] MEDS: CIPROFLOXACIN IN 5 % DEXTROSE 400 MG/200 ML BAG IV SCH ×2 (02:31→16:19)
[2020-01-17] MEDS: 0.5 NORMAL SALINE 1,000 ML IV PRN (06:48)
[2020-01-17 07:26] LABS: Albumin * 2.6 gm/dl (3.4-5.0); Anion Gap 13.5 mmol/L (6.8-13.8); BUN/Creatinine Ratio 24.5 (9.0-21.6); Ca. Corrected For Albumin 9.5 mg/dL (8.4-10.2); Calcium * 8.7 mg/dL (7.9-10.9); Carbon Dioxide 26.3 mmol/L (24-32.6); Potassium 4.8 mmol/L (3.4-4.6); Total Protein 6.6 gm/dL (6.2-8.2)
[2020-01-17] MEDS: INSULIN LISPRO 100 UNITS/ML VIAL SC SCH ×4 (07:39→20:59)
[2020-01-17] MEDS ORDERED: OXYBUTYNIN CHLORIDE 5 MG TABLET PO SCH (09:00)
--- NOTE | 2020-01-17 09:10 | PN ---
Subjective - Date and Time Seen Date: 01/17/20 Time: 09:00 Subjective Narrative: He slept most of the night. He reports feeling fine this morning, but can not give details regarding yesterday. Does not remember seeing me yesterday afternoon. Objective - Review of Systems Generalized/Overall Review: Denies: Fever Respiratory: Denies: Shortness of Breath Cardiac: Denies: Chest Pain Abdominal: Denies: Abdominal Pain Genitourinary Symptoms: Reports: Incontinent Musculoskeletal Complaints: Reports: No Symptoms Reported - Vitals Vitals: Last Vital Signs Temp 36.8 C 01/17/20 07:05 Pulse 77 01/17/20 07:05 Resp 17 01/17/20 07:05 BP 124/64 01/17/20 07:05 Pulse Ox 95 01/17/20 07:05 - Abnormal Lab Findings Abnormal Lab Findings: Abnormal Lab Results 01/16/20 01/16/20 01/16/20 Range/Units 13:05 13:05 13:05 WBC 16.9 H (4.0-10.5) K/mm3 Immature Gran % (Auto) (0.001-0.429) % Immature Gran # (Auto) 0.06 H (0.000-0.0310) K/mm3 Neutrophils % 89.1 H (42-75.0) % Lymphocytes % 8.0 L (20-51) % Neutrophils # 15.1 H (1.3-6.0) K/mm3 Lymphocytes # 1.35 L (1.5-3.5) k/mm3 pCO2 (35.0-48.0) mmHg HCO3 (21.0-28.0) mmol/L Total CO2 (19.0-24.0) mmol/L Base Excess (-2.0-3.0) mmol/L Sodium (132-142) mmol/L Plasma Sodium 151 H (130-142) mmol/L Potassium 5.0 H (3.4-4.6) mmol/L Chloride (97-106) mmol/L Carbon Dioxide 19.4 L (24-32.6) mmol/L Anion Gap 21.6 H (6.8-13.8) mmol/L BUN 62 H (6-23) mg/dL Creatinine 1.98 H (0.4-1.4) mg/dL Est GFR (Non-Af Amer) 34 L D (60-130) mL/min BUN/Creatinine Ratio 31.3 H (9.0-21.6) Random Glucose 776 H (70-110) mg/dL Lactic Acid, Venous 2.6 H* (0.4-2.0) mmol/L ALT (19-67) U/L Albumin 3.3 L (3.4-5.0) gm/dl Urine Glucose (UA) (NEGATIVE) mg/dL Urine Blood (NEGATIVE) /ul Amorphous Sediment (NONE-FEW) Urine Bacteria (NONE) 01/16/20 01/16/20 01/16/20 Range/Units 13:13 13:25 15:59 WBC (4.0-10.5) K/mm3 Immature Gran % (Auto) (0.001-0.429) % Immature Gran # (Auto) (0.000-0.0310) K/mm3 Neutrophils % (42-75.0) % Lymphocytes % (20-51) % Neutrophils # (1.3-6.0) K/mm3 Lymphocytes # (1.5-3.5) k/mm3 pCO2 30.6 L (35.0-48.0) mmHg HCO3 16.6 L (21.0-28.0) mmol/L Total CO2 17.5 L (19.0-24.0) mmol/L Base Excess -7.4 L (-2.0-3.0) mmol/L Sodium (132-142) mmol/L Plasma Sodium (130-142) mmol/L Potassium (3.4-4.6) mmol/L Chloride (97-106) mmol/L Carbon Dioxide (24-32.6) mmol/L Anion Gap (6.8-13.8) mmol/L BUN (6-23) mg/dL Creatinine (0.4-1.4) mg/dL Est GFR (Non-Af Amer) (60-130) mL/min BUN/Creatinine Ratio (9.0-21.6) Random Glucose (70-110) mg/dL Lactic Acid, Venous 2.7 H* (0.4-2.0) mmol/L ALT (19-67) U/L Albumin (3.4-5.0) gm/dl Urine Glucose (UA) >=1000 H (NEGATIVE) mg/dL Urine Blood 25 H (NEGATIVE) /ul Amorphous Sediment Moderate - 2+ H (NONE-FEW) Urine Bacteria 3+ H (NONE) 01/16/20 01/16/20 01/16/20 Range/Units 15:59 16:59 20:02 WBC (4.0-10.5) K/mm3 Immature Gran % (Auto) (0.001-0.429) % Immature Gran # (Auto) (0.000-0.0310) K/mm3 Neutrophils % (42-75.0) % Lymphocytes % (20-51) % Neutrophils # (1.3-6.0) K/mm3 Lymphocytes # (1.5-3.5) k/mm3 pCO2 (35.0-48.0) mmHg HCO3 (21.0-28.0) mmol/L Total CO2 (19.0-24.0) mmol/L Base Excess (-2.0-3.0) mmol/L Sodium 147 H (132-142) mmol/L Plasma Sodium 153 H (130-142) mmol/L Potassium (3.4-4.6) mmol/L Chloride 109 H (97-106) mmol/L Carbon Dioxide (24-32.6) mmol/L Anion Gap 17.0 H (6.8-13.8) mmol/L BUN 55 H (6-23) mg/dL Creatinine 2.01 H (0.4-1.4) mg/dL Est GFR (Non-Af Amer) 34 L (60-130) mL/min BUN/Creatinine Ratio 27.4 H (9.0-21.6) Random Glucose 494 H D (70-110) mg/dL Lactic Acid, Venous 2.8 H* 3.3 H* (0.4-2.0) mmol/L ALT (19-67) U/L Albumin 3.3 L (3.4-5.0) gm/dl Urine Glucose (UA) (NEGATIVE) mg/dL Urine Blood (NEGATIVE) /ul Amorphous Sediment (NONE-FEW) Urine Bacteria (NONE) 01/16/20 01/16/20 01/17/20 Range/Units 20:02 20:02 06:57 WBC 18.8 H (4.0-10.5) K/mm3 Immature Gran % (Auto) 0.50 H (0.001-0.429) % Immature Gran # (Auto) 0.09 H (0.000-0.0310) K/mm3 Neutrophils % 78.9 H (42-75.0) % Lymphocytes % 15.7 L (20-51) % Neutrophils # 14.8 H (1.3-6.0) K/mm3 Lymphocytes # (1.5-3.5) k/mm3 pCO2 (35.0-48.0) mmHg HCO3 (21.0-28.0) mmol/L Total CO2 (19.0-24.0) mmol/L Base Excess (-2.0-3.0) mmol/L Sodium 146 H 146 H (132-142) mmol/L Plasma Sodium 149 H 149 H (130-142) mmol/L Potassium 4.8 H (3.4-4.6) mmol/L Chloride 109 H 111 H (97-106) mmol/L Carbon Dioxide (24-32.6) mmol/L Anion Gap 17.1 H (6.8-13.8) mmol/L BUN 49 H 40 H (6-23) mg/dL Creatinine 1.94 H 1.63 H (0.4-1.4) mg/dL Est GFR (Non-Af Amer) 35 L 43 L D (60-130) mL/min BUN/Creatinine Ratio 25.3 H 24.5 H (9.0-21.6) Random Glucose 299 H D 276 H (70-110) mg/dL Lactic Acid, Venous (0.4-2.0) mmol/L ALT 18 L (19-67) U/L Albumin 3.2 L 2.6 L (3.4-5.0) gm/dl Urine Glucose (UA) (NEGATIVE) mg/dL Urine Blood (NEGATIVE) /ul Amorphous Sediment (NONE-FEW) Urine Bacteria (NONE) - Exam Constitutional: Present: Alert, Elderly Respiratory: Present: lungs clear, normal breath sounds Cardiovascular/Chest: Present: irregularly irregular Assessment/Plan - Problems/Diagnosis (1) Infectious encephalopathy Problem: Acute Narrative: He stated the year was 1999. He is declining getting up to the chair. He is unable to tell me how he takes his insulin or any of his medicines. This being the first time I met him, I do not know if this is his baseline. His reportedly also has dementia. He did agree to home health this morning, though he may also be an appropriate skilled nursing candidate. He declined when this was brought up. We will continue to assess his mentation to determine his ability to make medical decisions. We will continue IV antibiotics and fluids and monitor his mentation. His urine is growing gram-negative bacilli, and will continue Cipro. Physical therapy evaluation pending to help determine discharge needs. (2) Hyperosmolar hyperglycemic state (HHS) Problem: Suspected Narrative: With glucose greater than 700, absent ketones, he could potentially meet criteria for HHS. Osmolality pending. Glucose is improving with insulin and fluids. He was given 14 units insulin in the ED, and has received sliding scale insulin since then, totaling 33 units since he has been here, approximately 21 hours. (3) Urinary tract infection Problem: Acute Narrative: Urine culture is growing greater than 100,000 CFU's gram-negative bacilli. We will continue Cipro. WBC went from 16.9-18.4 yesterday, and repeat pending for this morning. He has been afebrile and vitals have been normal. He has not been septic. He did have an elevated lactate overnight which resolved with fluids. (4) Dermatitis, unspecified Problem: Acute Narrative: The skin of his perineal area and upper thighs is irritated. EMS reported a strong odor of urine and his clothes were soaked in urine. Anticipate his skin irritation is secondary to exposure to urine. This is his second hospital admission within 2 weeks. I do not feel like he is to take care of himself at home, as this is likely to continue happening. We will need to continue to assess his mentation to determine his ability to make medical decisions. He did agree to home health this morning. (5) Diabetes Problem: Chronic Narrative: He could not tell me how he takes his insulin or his medicines. I do not feel like he can care for his diabetes at home. His insulin bottles were reportedly full. At the least, he needs home health after discharge to prevent further hospitalizations. He would be an appropriate skilled nursing candidate from what I can assess. Chart review shows an ED visit in 2019 for a glucose of 30. A1C was 8.5 in March 2019. (6) WIN (acute kidney injury) Problem: Acute Narrative: Improving with fluids. GFR has gone from 34 to 43, and creatinine has gone from 2.01 to 1.43. Creatinine was 1.26 and GFR was 58 on 01/05. Likely due to dehydration. His DC summary from 01/05 mentions encouraging him to drink more water, so this is a recurring problem. He may not be able to care for his needs at home, and skilled nursing placement will likely avoid further hospitalizations. Appreciate case management assistance with discharge planning. (7) Hypernatremia Problem: Acute Narrative: Mild hypernatremia. Sodium this morning is 146. Likely from dehydration. We will continue half-normal saline for today, and reassess this afternoon. If he is able to eat and drink, will DC fluids. (8) Lactic acidosis Problem: Resolved (9) Atrial fibrillation Problem: Chronic Qualifiers: Atrial fibrillation type: paroxysmal Qualified Code(s): I48.0 - Paroxysmal atrial fibrillation Narrative: He was in afib yesterday, and back in 2017. His EKG from 01/04/20 showed multifocal atrial tachycardia. When asked about this diagnosis this morning, he could not remember being given this diagnosis in the past. AWV from 03/18/19 shows anticoagulation was discussed and he declined. With the trouble taking the remainder of his meds, I do not believe he would be able to take anticoagulation meds reliably.
[2020-01-17 09:21] LABS: Hematocrit 46.1 % (42.0-52.0); Hemoglobin 14.6 gm/dL (13.5-18.0); Mean Cell Volume 95.1 fl (78-100); Mean Corpuscular Hemoglobin 30.1 pg (27-31); Mean Corpuscular Hgb Conc 31.7 g/dl (32-36); Mean Platelet Volume 8.7 fl (8-11.3); Neutrophil # 11.5 K/mm3 (1.3-6.0); Platelet Count 336 K/mm3 (150-450); Red Blood Count 4.85 M/mm3 (4.7-6.0); Red Cell Distribution Width 13.4 % (11.5-14.0); White Blood Count 15.5 K/mm3 (4.0-10.5)
[2020-01-17] MEDS: ASPIRIN 81 MG TABLET.DR PO SCH (09:32)
[2020-01-17] MEDS: GLIMEPIRIDE 4 MG TABLET PO SCH (09:33)
[2020-01-17] MEDS: DORZOLAMIDE HCL 100 DROP BTL EACHEYE SCH ×3 (09:33→20:55)
[2020-01-17] MEDS: OXYBUTYNIN CHLORIDE 5 MG TABLET PO SCH (09:33)
[2020-01-17] MEDS: NYSTATIN 15 APPL BTL TP SCH ×2 (11:51→20:55)
[2020-01-17 13:28] LABS: Albumin * 2.9 gm/dl (3.4-5.0); Anion Gap 13.9 mmol/L (6.8-13.8); BUN/Creatinine Ratio 21.8 (9.0-21.6); Bilirubin, Total 1.2 mg/dL (0.0-1.1); Ca. Corrected For Albumin 9.6 mg/dL (8.4-10.2); Carbon Dioxide 24.9 mmol/L (24-32.6); Potassium 3.8 mmol/L (3.4-4.6); Total Protein 7.1 gm/dL (6.2-8.2)
--- NOTE | 2020-01-17 15:06 | PN ---
[facility] Note - Interim Date: 01/17/20 Time: 15:04 Narrative: 01/17/20 15:04 I was asked by case management to consult urology, which I did not know was available today. Message sent to urologist, but it was sent late in the day, and I may not get a response today. Would recommend outpatient urology referral to assess if his anatomy is promoting infection.
[2020-01-17] MEDS: LATANOPROST 25 DROP BTL EACHEYE SCH (20:55)
[2020-01-17] MEDS: INSULIN GLARGINE,HUM.REC.ANLOG 100 UNITS/ML VIAL SC SCH (20:56)
[2020-01-18] MEDS: CIPROFLOXACIN IN 5 % DEXTROSE 400 MG/200 ML BAG IV SCH ×2 (01:57→14:24)
[2020-01-18 06:45] LABS: Hematocrit 46.8 % (42.0-52.0); Mean Cell Volume 93.4 fl (78-100); Mean Corpuscular Hemoglobin 29.9 pg (27-31); Mean Corpuscular Hgb Conc 32.1 g/dl (32-36); Mean Platelet Volume 8.5 fl (8-11.3); Neutrophil # 9.7 K/mm3 (1.3-6.0); Neutrophil % 66.7 % (42-75.0); Platelet Count 270 K/mm3 (150-450); Red Blood Count 5.01 M/mm3 (4.7-6.0); Red Cell Distribution Width 12.8 % (11.5-14.0); White Blood Count 14.6 K/mm3 (4.0-10.5)
[2020-01-18 07:03] LABS: Albumin * 2.7 gm/dl (3.4-5.0); Anion Gap 12.5 mmol/L (6.8-13.8); Ca. Corrected For Albumin 9.7 mg/dL (8.4-10.2); Carbon Dioxide 24.5 mmol/L (24-32.6); Total Protein 6.4 gm/dL (6.2-8.2)
[2020-01-18] MEDS: INSULIN LISPRO 100 UNITS/ML VIAL SC SCH ×4 (07:28→21:05)
[2020-01-18] MEDS: ASPIRIN 81 MG TABLET.DR PO SCH (08:42)
[2020-01-18] MEDS: OXYBUTYNIN CHLORIDE 5 MG TABLET PO SCH (08:42)
[2020-01-18] MEDS: GLIMEPIRIDE 4 MG TABLET PO SCH (08:44)
[2020-01-18] MEDS: NYSTATIN 15 APPL BTL TP SCH ×2 (08:44→21:03)
[2020-01-18] MEDS: DORZOLAMIDE HCL 100 DROP BTL EACHEYE SCH ×2 (08:44→21:02)
--- NOTE | 2020-01-18 10:58 | CONS ---
HPI - General Narrative: I am asked by Dr. Feliciano to consult on this 84-year-old gentleman who came in with probable urosepsis. The patient had hyperosmolar hyperglycemia without ketosis and elevated white blood cell count with a left shift and absence of uroseptic vital signs. The patient has ultimately grown a Proteus species that is sensitive to the Cipro that is being administered. The patient has had a noted improvement in his creatinine. His white blood cell count has come down and the left shift has corrected itself. I am asked to consult on this patient because the patient has phimosis. The patient is a poor historian and cannot recall how long the phimosis has been in place. The patient states that he does have some urinary issues but is rather vague about it and I do see that the patient is on oxybutynin Source: patient Exam Limitations: other - History of Present Illness Timing/Duration: unsure Severity: mild Allergies/Adverse Reactions: Allergies Penicillins Adverse Reaction (Mild, Verified 01/16/20 16:04) "DEATHLY ILL" pioglitazone HCl [From Actos] Adverse Reaction (Mild, Verified 01/16/20 16:04) "ZOMBIE LIKE" Home Medications: Home Medications Medication Instructions Recorded Last Taken Glimepiride 8 mg PO DAILY 01/04/20 Unknown Aspirin [Aspirin EC] 81 mg PO DAILY 01/16/20 Unknown Blood Sugar Diagnostic [Accu-Chek 1 ea MC BID 01/16/20 Unknown Guide Test Strip] Brinzolamide [Azopt 1% Ophthalmic 1 drp OPHTHALMIC (EYE) BID 01/16/20 Unknown Suspension] Insulin Glargine,Hum.rec.anlog 50 units SC HS 01/16/20 Unknown [Lantus] Multivitamin 1 ea PO DAILY 01/16/20 Unknown Simvastatin 20 mg PO HS 01/16/20 Unknown metFORMIN HCL [Metformin HCl] 1,000 mg PO BID 01/16/20 Unknown Oxybutynin Chloride [Ditropan] 5 mg PO DAILY 01/17/20 Unknown Procedures Closed [endoscopic] biopsy of large intestine (07/27/06) Closure of skin and subcutaneous tissue of other sites (11/03/02) Endoscopic polypectomy of large intestine (07/02/14) Esophagogastroduodenoscopy [EGD] with closed biopsy (07/27/06) Incision with removal of foreign body or device from skin and subcutaneous tissue (01/23/07) Insertion of totally implantable vascular access device [VAD] (09/22/06) [id number] intestinal anastomosis (08/21/06) Other partial ostectomy, patella (09/02/02) Sigmoidectomy (08/21/06) 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) [Endoscopic] polypectomy of rectum (07/27/06) Medications - Medications Current Medications: Current Medications Aspirin (Aspirin Enteric Coated) 81 mg PO DAILY [facility] Stop: 02/16/20 09:01 Last Admin: 01/18/20 08:42 Dose: 81 mg Documented by: Dorzolamide HCl (Trusopt) 1 drop EACHEYE BID [facility] Stop: 02/15/20 21:01 Last Admin: 01/18/20 08:44 Dose: 1 drop Documented by: Glimepiride (Amaryl) 4 mg PO DAILY [facility] Stop: 02/16/20 09:01 Last Admin: 01/18/20 08:44 Dose: 4 mg Documented by: Ciprofloxacin/Dextrose (Cipro) 400 mg in 200 mls @ 200 mls/hr IV Q12H [facility]; Protocol Stop: 02/15/20 14:46 Last Infusion: 01/18/20 02:57 Dose: Infused Documented by: Insulin Glargine (Lantus) 50 units SC [facility] Stop: 02/16/20 21:01 Last Admin: 01/17/20 20:56 Dose: 50 units Documented by: Insulin Human Lispro (Humalog) 0 units SC [facility]; Protocol Stop: 02/15/20 17:01 Last Admin: 01/18/20 07:28 Dose: Not Given Documented by: Latanoprost (Xalatan) 1 drop EACHEYE [facility] Stop: 02/15/20 21:01 Last Admin: 01/17/20 20:55 Dose: 1 drop Documented by: Metformin HCl (Glucophage) 1,000 mg PO BID [facility] Stop: 02/16/20 09:01 Last Admin: 01/18/20 08:44 Dose: 1,000 mg Documented by: Nystatin (Mycostatin Powder) 1 appl TP BID [facility] Stop: 02/16/20 11:16 Last Admin: 01/18/20 08:44 Dose: 1 appl Documented by: Oxybutynin Chloride (Ditropan) 5 mg PO DAILY [facility] Stop: 02/16/20 09:01 Last Admin: 01/18/20 08:42 Dose: 5 mg Documented by: Review of Systems - Review of Systems Narrative: Refer to notes by previous providers Physical Examination - Exam Narrative: The patient is awake alert and pleasant in no apparent distress but his answers are somewhat vague and scattered He is an elderly male appearing his stated age lying comfortably in bed Head and neck: Full range of motion and normal eye movements Chest: Excursion is normal Abdomen is obese without masses Genital: The patient has a phimosis. 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 Prostate exam not done Vital Signs: Vital Signs - Last Taken Temp 36.9 C 01/18/20 10:00 Pulse 97 01/18/20 10:00 Resp 16 01/18/20 10:00 BP 133/58 01/18/20 10:00 Pulse Ox 95 01/18/20 10:00 O2 Oxygen Delivery Method Room Air - Results and Findings: Narrative: The laboratory data are improving as noted above in the history of present illness. A CT scan was accomplished and it shows normal upper tracts without evidence of stone tumor or ectasia. The bladder is about 450 cc and because this is a random study this does not really constitute urinary retention. It is also coincidentally noted that the patient has gallstones and a large bore umbilical hernia. The patient does have phimosis which may well contribute to further episodes of urinary tract infection, although the presence of the phimosis would make a voided urine completely unreliable and we could not obtain a catheter urine with any reliability due to the colonization of the phimotic entrance I believe that the patient's purposes would best be served by permitting him to recover from this event and for him to go out on culture appropriate antibiotics which would include sulfa, fluoroquinolones, or certain effective cephalosporins. I have spoken with the patient about the need to at least perform a dorsal slit. Circumcision would not be necessary. This could be done on an outpatient basis under sedation with local anesthesia. I believe the patient should be permitted to go home. Would consider taking him off of the oxybutynin as that certainly would promote urinary retention which would also promote urinary infection. You should have an appointment for perhaps 1 to 2 weeks after discharge at the urology clinic in [place] so that we can assess him for this outpatient procedure. I have explained the procedure to him in some detail and he seems somewhat hesitant to comply but hopefully he will be a little bit more alert and agreeable when I see him on an outpatient basis This visit exceeded 40 minutes and greater than 50% was counseling regarding the above issues Lab/Microbiology results last 24 hrs: Abnormal/Pending Laboratory Last 24 HRS 01/18/20 01/18/20 01/17/20 06:25 06:25 13:10 WBC 14.6 H Immature Gran # (Auto) 0.05 H Neutrophils # 9.7 H Lymphocytes # 3.90 H Plasma Sodium 144 H Anion Gap 13.9 H BUN 32 H 37 H Creatinine 1.70 H Est GFR (Non-Af Amer) 52 L D 41 L BUN/Creatinine Ratio 23.0 H 21.8 H Random Glucose 309 H Total Bilirubin 1.2 H ALT 15 L Albumin 2.7 L 2.9 L Culture 01/16/20 13:15 Urine Culture - Final Urine,Voided Proteus Penneri 01/16/20 14:27 Blood Culture - Preliminary Blood NO GROWTH 24 HOURS 01/16/20 13:00 Blood Culture - Preliminary Blood NO GROWTH 24 HOURS - Assessments/Findings (1) Sepsis Problem: Suspected Qualifiers: Sepsis type: sepsis due to unspecified organism Sepsis acute organ dysfunction status: with acute organ dysfunction Severe sepsis acute organ dysfunction type: acute renal failure Acute renal failure type: unspecified Severe sepsis shock status: without septic shock Qualified Code(s): A41.9 - Sepsis, unspecified organism; R65.20 - Severe sepsis without septic shock; N17.9 - Acute kidney failure, unspecified
--- NOTE | 2020-01-18 12:06 | PN ---
Subjective - Date and Time Seen Date: 01/18/20 Time: 09:45 Subjective Narrative: Trever Berry is an 84-year-old male patient of Dr. Gallagher. He was admitted after having been found on the floor at his home with an elevated blood sugar too high to register in the field. He was brought to the ER where his blood sugar was over 750 but he was not ketotic. He has been obtunded. His blood sugars yesterday were still in the 300s. This morning it is 100. He did not rest well last night so he is quite sleepy this morning. He did not eat breakfast but he thinks he will eat lunch. He is in no distress this morning. He has been up and ambulatory this morning at stated he did not feel like he was having any problems walking. Lab: White count is 14,600 which is down from 15,000 518,802 times previous. The hemoglobin is 15.0 g, platelets are 270,000. Chemistries: Sodium 139, potassium 4.0, chloride 106, CO2 24.5. The EGFR is 52 which is up from 41 and 35 the 2 times previous. This reflects better hydration. Glucose is 110 and is down from 309 and 299 the last 2 times checked. Liver function tests were normal. The albumin is down somewhat from admission and it is 2.7 this morning which is down from 2.9 and 3.2 the last 2 times. Vital signs: Temperature 37.2, pulse 62, BP 154/88, respirations 18 and unlabored, O2 sat is 94% on room air. His weight is 85.3 kg yesterday. This morning's weight if done has not been recorded. Chest x-ray on admission showed hypoventilation changes but no acute processes. CT of the abdomen and pelvis have been done but the interpretation is still pending the radiologist. Objective - Review of Systems Generalized/Overall Review: Reports: Weakness, Fatigue EENTM: Reports: No Symptoms Reported Respiratory: Reports: No Symptoms Reported Cardiac: Reports: No Symptoms Reported Abdominal: Reports: No Symptoms Reported Genitourinary Symptoms: Reports: No Symptoms Reported Musculoskeletal Complaints: Reports: No Symptoms Reported Neurological: Reports: No Symptoms Reported Endocrine: Reports: No Symptoms Reported - Vitals Vitals: Last Vital Signs Temp 36.9 C 01/18/20 10:00 Pulse 97 01/18/20 10:00 Resp 16 10/03/20 10:00 BP 133/58 01/18/20 10:00 Pulse Ox 95 01/18/20 10:00 - Abnormal Lab Findings Abnormal Lab Findings: Abnormal Lab Results 01/17/20 01/18/20 01/18/20 Range/Units 13:10 06:25 06:25 WBC 14.6 H (4.0-10.5) K/mm3 Immature Gran # (Auto) 0.05 H (0.000-0.0310) K/mm3 Neutrophils # 9.7 H (1.3-6.0) K/mm3 Lymphocytes # 3.90 H (1.5-3.5) k/mm3 Plasma Sodium 144 H (130-142) mmol/L Anion Gap 13.9 H (6.8-13.8) mmol/L BUN 37 H 32 H (6-23) mg/dL Creatinine 1.70 H (0.4-1.4) mg/dL Est GFR (Non-Af Amer) 41 L 52 L D (60-130) mL/min BUN/Creatinine Ratio 21.8 H 23.0 H (9.0-21.6) Random Glucose 309 H (70-110) mg/dL Total Bilirubin 1.2 H (0.0-1.1) mg/dL ALT 15 L (19-67) U/L Albumin 2.9 L 2.7 L (3.4-5.0) gm/dl - EKG/Xray Findings EKG: atrial fibrillation EKG read: Interp. by me XRAY: CT abdomen and pelvis Interpretation: Reviewed by me - Exam Constitutional: Present: Alert, Oriented x3, Cooperative, Well developed, Well nourished, No distress ENT Exam: Present: normal ENT inspection, hearing grossly normal, pharynx no rmal, TMs normal Neck: Present: non-tender, full range of motion, supple, normal inspection Breasts: Present: Exam deferred Respiratory: Present: chest non-tender, lungs clear, no respiratory distress, no accessory muscle use, respiratory distress, decreased breath sounds Cardiovascular/Chest: Present: normal peripheral pulses, no chest tenderness, no edema, no JVD, no murmur, no rub, irregularly irregular Abdomen: Present: Normal bowel sounds, soft, nontender, nondistended, no rebound tenderness, no hepatospenomegaly, no masses /Rectal: Present: Exam deferred Extremity: Present: normal range of motion, non-tender, normal inspection, no pedal edema, no calf tenderness, normal capillary refill Skin Exam: Present: normal color, warm/dry, no cyanosis Lymphatic: Present: no adenopathy 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 Progress activity and diet as tolerated 2. Recheck lab again tomorrow morning with CBC, CMP, hemoglobin A1c 3. Anticipate discharge tomorrow - Problems/Diagnosis (1) Weakness Problem: Acute (2) Acute alteration in mental status Problem: Acute (3) Dehydration Problem: Acute (4) Hyperglycemia without ketosis Problem: Acute (5) Atrial fibrillation Problem: Chronic Qualifiers: Atrial fibrillation type: paroxysmal Qualified Code(s): I48.0 - Paroxysmal atrial fibrillation (6) WIN (acute kidney injury) Problem: Acute
[2020-01-18] MEDS: ENOXAPARIN SODIUM 40 MG/0.4 ML SYRG SC SCH (15:01)
[2020-01-18] MEDS: LATANOPROST 25 DROP BTL EACHEYE SCH (21:02)
[2020-01-18] MEDS: BRINZOLAMIDE 100 DROP BTL EACHEYE SCH (21:03)
[2020-01-18] MEDS: INSULIN GLARGINE,HUM.REC.ANLOG 100 UNITS/ML VIAL SC SCH (21:04)
[2020-01-18] MEDS: SIMVASTATIN 20 MG TABLET PO SCH (21:16)
[2020-01-19] MEDS: CIPROFLOXACIN IN 5 % DEXTROSE 400 MG/200 ML BAG IV SCH ×2 (02:16→14:30)
[2020-01-19 07:01] LABS: Hematocrit 43.9 % (42.0-52.0); Hemoglobin 14.4 gm/dL (13.5-18.0); Mean Cell Volume 91.3 fl (78-100); Mean Corpuscular Hemoglobin 29.9 pg (27-31); Mean Corpuscular Hgb Conc 32.8 g/dl (32-36); Mean Platelet Volume 8.6 fl (8-11.3); Neutrophil # 5.5 K/mm3 (1.3-6.0); Neutrophil % 56.2 % (42-75.0); Platelet Count 267 K/mm3 (150-450); Red Blood Count 4.81 M/mm3 (4.7-6.0); Red Cell Distribution Width 12.7 % (11.5-14.0); White Blood Count 9.8 K/mm3 (4.0-10.5)
[2020-01-19 07:16] LABS: Albumin * 2.4 gm/dl (3.4-5.0); Anion Gap 13.2 mmol/L (6.8-13.8); BUN/Creatinine Ratio 17.7 (9.0-21.6); Bilirubin, Total 0.9 mg/dL (0.0-1.1); Ca. Corrected For Albumin 9.5 mg/dL (8.4-10.2); Calcium * 8.5 mg/dL (7.9-10.9); Potassium 3.2 mmol/L (3.4-4.6); Total Protein 5.9 gm/dL (6.2-8.2)
[2020-01-19] MEDS: INSULIN LISPRO 100 UNITS/ML VIAL SC SCH ×4 (07:40→21:44)
[2020-01-19 07:41] LABS: Hemoglobin A1C 12.6 % (3.80-5.60)
[2020-01-19] MEDS: OXYBUTYNIN CHLORIDE 5 MG TABLET PO SCH (08:35)
[2020-01-19] MEDS: ASPIRIN 81 MG TABLET.DR PO SCH (08:35)
[2020-01-19] MEDS: NYSTATIN 15 APPL BTL TP SCH ×2 (08:36→21:46)
[2020-01-19] MEDS: BRINZOLAMIDE 100 DROP BTL EACHEYE SCH ×2 (08:36→21:45)
[2020-01-19] MEDS: DORZOLAMIDE HCL 100 DROP BTL EACHEYE SCH ×2 (08:38→21:46)
[2020-01-19] MEDS: GLIMEPIRIDE 4 MG TABLET PO SCH (08:41)
--- NOTE | 2020-01-19 14:29 | PN ---
Subjective - Date and Time Seen Date: 01/19/20 Time: 09:40 Subjective Narrative: Mr. Traylor says he is feeling weaker this morning. He has been up to the bathroom and just got back to bed and is not feeling well. He also had a low blood sugar this morning of 56 and we held his Amaryl. He was seen by urology yesterday and they recommended outpatient follow-up. I told him to rest a while, eat lunch and then I would check him again after lunch. I saw him again at 2:00 this afternoon and he still was not feeling well enough to go home and requested to stay another night. I am uncertain as to whether he should go home or should go to assisted. I will have physical therapy evaluate him tomorrow morning and make recommendations. Dr. Gross will resume care tomorrow. Today's lab is uneventful other than the low blood sugar this morning. Blood sugar was rechecked after breakfast about 2 hours and it was up to 126. I allowed him to take the metformin but the low blood sugar is no doubt from the sulfonylurea. I will leave it for Dr. Gross to decide which diabetic medicine he would like him on. I will also ordered morning lab for him for tomorrow. If he is going home he will go home with home health and if he goes to rehab then it would be for the purposes of physical therapy. Objective - Review of Systems Generalized/Overall Review: Reports: Weakness, Malaise, Fatigue EENTM: Reports: No Symptoms Reported Respiratory: Reports: No Symptoms Reported Cardiac: Reports: No Symptoms Reported Abdominal: Reports: No Symptoms Reported Genitourinary Symptoms: Reports: Other - Phimosis Musculoskeletal Complaints: Reports: No Symptoms Reported Neurological: Reports: No Symptoms Reported Skin: Reports: No Symptoms Reported Endocrine: Reports: No Symptoms Reported - Vitals Vitals: Last Vital Signs Temp 37.3 C 01/19/20 14:07 Pulse 108 H 01/19/20 14:07 Resp 20 01/19/20 14:07 BP 101/72 01/19/20 14:07 Pulse Ox 97 01/19/20 14:07 - Abnormal Lab Findings Abnormal Lab Findings: Abnormal Lab Results 01/16/20 01/19/20 01/19/20 Range/Units 13:05 06:45 06:45 Potassium 3.2 L (3.4-4.6) mmol/L Carbon Dioxide 22.0 L (24-32.6) mmol/L Est GFR (Non-Af Amer) 59 L (60-130) mL/min Random Glucose 57 L D (70-110) mg/dL Hemoglobin A1c 12.6 H (3.80-5.60) % Serum Osmolality 353 H mOsm/kg ALT 15 L (19-67) U/L Total Protein 5.9 L (6.2-8.2) gm/dL Albumin 2.4 L (3.4-5.0) gm/dl - Exam Constitutional: Present: Alert, Oriented x3, Cooperative, Well developed, Well nourished, No distress ENT Exam: Present: normal ENT inspection, hearing grossly normal, pharynx normal, TMs normal Neck: Present: non-tender, full range of motion, supple, normal inspection Breasts: Present: Exam deferred Respiratory: Present: chest non-tender, lungs clear, normal breath sounds, no respiratory distress Cardiovascular/Chest: Present: normal peripheral pulses, regular rate, rhythm, no chest tenderness, no edema, no gallop, no JVD, no murmur, no rub Abdomen: Present: Normal bowel sounds, soft, nontender, nondistended, no rebound tenderness, no hepatospenomegaly, no masses /Rectal: Present: Exam deferred, External genitalia normal Extremity: Present: normal range of motion, non-tender, normal inspection, no calf tenderness Skin Exam: Present: normal color, warm/dry, no cyanosis Lymphatic: Present: no adenopathy 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 PT re-eval tomorrow morning 2. CMP and CBC tomorrow morning 3. Dr. Gross to resume care tomorrow morning - Problems/Diagnosis (1) Weakness Problem: Acute (2) Acute alteration in mental status Problem: Acute (3) Dehydration Problem: Acute (4) Hyperglycemia without ketosis Problem: Acute (5) Atrial fibrillation Problem: Chronic Qualifiers: Atrial fibrillation type: paroxysmal Qualified Code(s): I48.0 - Paroxysmal atrial fibrillation (6) WIN (acute kidney injury) Problem: Acute
[2020-01-19] MEDS: ENOXAPARIN SODIUM 40 MG/0.4 ML SYRG SC SCH (14:30)
[2020-01-19] MEDS: INSULIN GLARGINE,HUM.REC.ANLOG 100 UNITS/ML VIAL SC SCH (21:44)
[2020-01-19] MEDS: LATANOPROST 25 DROP BTL EACHEYE SCH (21:45)
[2020-01-19] MEDS: SIMVASTATIN 20 MG TABLET PO SCH (21:46)
[2020-01-20] MEDS: CIPROFLOXACIN IN 5 % DEXTROSE 400 MG/200 ML BAG IV SCH (02:38)
[2020-01-20] MEDS: INSULIN LISPRO 100 UNITS/ML VIAL SC SCH ×2 (06:23→11:40)
[2020-01-20 06:28] LABS: Hematocrit 45.1 % (42.0-52.0); Hemoglobin 14.8 gm/dL (13.5-18.0); Mean Cell Volume 91.9 fl (78-100); Mean Corpuscular Hemoglobin 30.1 pg (27-31); Mean Corpuscular Hgb Conc 32.8 g/dl (32-36); Mean Platelet Volume 8.6 fl (8-11.3); Neutrophil # 5.5 K/mm3 (1.3-6.0); Neutrophil % 48.7 % (42-75.0); Platelet Count 243 K/mm3 (150-450); Red Blood Count 4.91 M/mm3 (4.7-6.0); Red Cell Distribution Width 12.7 % (11.5-14.0); White Blood Count 11.3 K/mm3 (4.0-10.5)
[2020-01-20 06:42] LABS: Albumin * 2.5 gm/dl (3.4-5.0); Anion Gap 11.1 mmol/L (6.8-13.8); BUN/Creatinine Ratio 15.6 (9.0-21.6); Ca. Corrected For Albumin 9.7 mg/dL (8.4-10.2); Calcium * 8.8 mg/dL (7.9-10.9); Carbon Dioxide 26.4 mmol/L (24-32.6); Potassium 3.5 mmol/L (3.4-4.6); Total Protein 6.2 gm/dL (6.2-8.2)
[2020-01-20] MEDS: GLIMEPIRIDE 4 MG TABLET PO SCH (09:18)
[2020-01-20] MEDS: OXYBUTYNIN CHLORIDE 5 MG TABLET PO SCH (09:18)
[2020-01-20] MEDS: ASPIRIN 81 MG TABLET.DR PO SCH (09:18)
[2020-01-20] MEDS: BRINZOLAMIDE 100 DROP BTL EACHEYE SCH (09:19)
[2020-01-20] MEDS: DORZOLAMIDE HCL 100 DROP BTL EACHEYE SCH (09:19)
[2020-01-20] MEDS: NYSTATIN 15 APPL BTL TP SCH (09:19)
--- NOTE | 2020-01-20 09:50 | DS ---
(1) Urinary tract infection Problem: Acute Qualifiers: Urinary tract infection type: acute cystitis (2) Hyperosmolar hyperglycemic state (HHS) Problem: Acute (3) WIN (acute kidney injury) Problem: Acute (4) Atrial fibrillation Problem: Chronic Qualifiers: Atrial fibrillation type: paroxysmal Qualified Code(s): I48.0 - Paroxysmal atrial fibrillation Date of Discharge:: 01/20/20 Hospital Course: Trever was admitted with acute kidney injury, hyperosmolar hyperglycemic nonketotic syndrome, and UTI. I suspect his hyperglycemic episode was exacerbated by his UTI. He has had recurrent UTIs and Urology was consulted. Dr. Colon recommended a Slit procedure and will follow up with him as outpatient. He will also need to see podiatry for diabetic nail care. His treatment consisted of IV fluids, Insulin, and IV Cipro. He gradually improved and today renal function is back to his baseline, sugars are controlled, and he has completed antibiotics for UTI. He will be discharged to home. Today I have discussed with him home health which he agrees with. His visit today was comple jaime with the purpose of setting up [facility] home health at discharge. It is physically taxing for him to leave the home. He needs nursing for diabetes care and monitoring of atrial fibrillation. Procedures Performed: none Results and Findings: Pending Mircobiology Results 01/16/20 14:27 Blood Blood Culture - Preliminary NO GROWTH AFTER 48 HOURS 01/16/20 13:00 Blood Blood Culture - Preliminary NO GROWTH AFTER 48 HOURS Lab Pending Results 01/16/20 12:05: Troponin I 0.026 01/16/20 13:05: WBC 16.9 H, RBC 5.57, Hgb 16.8, Hct 51.0, MCV 91.6, MCH 30.2, MCHC 32.9, RDW 13.0, Plt Count 399, MPV 8.7, Immature Gran % (Auto) 0.40, Immature Gran # (Auto) 0.06 H, Neutrophils % 89.1 H, Lymphocytes % 8.0 L, Monocytes % 2.1, Eosinophils % 0.0, Basophils % 0.4, Nucleated RBC % 0.0, Neutrophils # 15.1 H, Lymphocytes # 1.35 L, Monocytes # 0.4, Eosinophils # 0.0, Absolute Basophils 0.1 01/16/20 13:05: Sodium 140, Plasma Sodium 151 H, Potassium 5.0 H, Chloride 104, Carbon Dioxide 19.4 L, Anion Gap 21.6 H, BUN 62 H, Creatinine 1.98 H, Est GFR (Non-Af Amer) 34 L D, BUN/Creatinine Ratio 31.3 H, Random Glucose 776 H, Calcium 9.9, Calcium Adj for Albumin 10.1, Total Bilirubin 0.7, AST 11, ALT 28, Alkaline Phosphatase 88, Creatine Kinase 47, C-Reactive Prot, Quant 0.7, Total Protein 8.0, Albumin 3.3 L, Serum Ketones Negative 01/16/20 13:05: Lactic Acid, Venous 2.6 H* 01/16/20 13:05: Serum Osmolality 353 H 01/16/20 13:13: Urine Color Pale yellow, Urine Appearance Clear, Urine pH 5.0, Ur Specific Mcqueeney 1.010, Urine Protein Negative, Urine Glucose (UA) >=1000 H, Urine Ketones 15, Urine Blood 25 H, Urine Nitrate Negative, Urine Bilirubin Negative, Urine Urobilinogen Normal, Ur Leukocyte Esterase Negative, Urine RBC Trace, Urine WBC Trace, Ur Epithelial Cells Trace, Amorphous Sediment Moderate - 2+ H, Urine Bacteria 3+ H, Urine Culture Comments Culture to follow 01/16/20 13:25: pCO2 30.6 L, pO2 90.8, HCO3 16.6 L, Total CO2 17.5 L, Base Excess -7.4 L, ABG pH 7.35, ABG O2 Sat (Measured) 96.7 01/16/20 15:59: Lactic Acid, Venous 2.7 H* 01/16/20 15:59: Sodium 147 H, Plasma Sodium 153 H, Potassium 4.3, Chloride 109 H, Carbon Dioxide 25.3, Anion Gap 17.0 H, BUN 55 H, Creatinine 2.01 H, Est GFR (Non-Af Amer) 34 L, BUN/Creatinine Ratio 27.4 H, Random Glucose 494 H D, Calcium 9.8, Calcium Adj for Albumin 10.0, Total Bilirubin 0.6, AST 11, ALT 22, Alkaline Phosphatase 89, Total Protein 8.1, Albumin 3.3 L 01/16/20 16:59: Lactic Acid, Venous 2.8 H* 01/16/20 20:02: Lactic Acid, Venous 3.3 H* 01/16/20 20:02: Sodium 146 H, Plasma Sodium 149 H, Potassium 4.1, Chloride 109 H, Carbon Dioxide 24.0, Anion Gap 17.1 H, BUN 49 H, Creatinine 1.94 H, Est GFR (Non-Af Amer) 35 L, BUN/Creatinine Ratio 25.3 H, Random Glucose 299 H D, Calcium 9.5, Calcium Adj for Albumin 9.8, Total Bilirubin 0.7, AST 15, ALT 20, Alkaline Phosphatase 86, Troponin I 0.020, Total Protein 7.9, Albumin 3.2 L 01/16/20 20:02: Procalcitonin 0.09 01/16/20 20:02: WBC 18.8 H, RBC 5.39, Hgb 16.3, Hct 50.8, MCV 94.2, MCH 30.2, MCHC 32.1, RDW 13.2, Plt Count 375, MPV 8.3, Immature Gran % (Auto) 0.50 H, Immature Gran # (Auto) 0.09 H, Neutrophils % 78.9 H, Lymphocytes % 15.7 L, Monocytes % 4.5, Eosinophils % 0.0, Basophils % 0.4, Nucleated RBC % 0.0, Neutrophils # 14.8 H, Lymphocytes # 2.95, Monocytes # 0.8, Eosinophils # 0.0, Absolute Basophils 0.1 01/17/20 00:15: Lactic Acid, Venous 1.1 01/17/20 06:20: WBC 15.5 H, RBC 4.85, Hgb 14.6, Hct 46.1, MCV 95.1, MCH 30.1, MCHC 31.7 L, RDW 13.4, Plt Count 336, MPV 8.7, Immature Gran % (Auto) 0.40, Immature Gran # (Auto) 0.06 H, Neutrophils % 74.0, Lymphocytes % 20.2, Monocytes % 4.1, Eosinophils % 0.8, Basophils % 0.5, Nucleated RBC % 0.0, Neutrophils # 11.5 H, Lymphocytes # 3.14, Monocytes # 0.6, Eosinophils # 0.1, Absolute Basophils 0.1 01/17/20 06:57: Sodium 146 H, Plasma Sodium 149 H, Potassium 4.8 H, Chloride 111 H, Carbon Dioxide 26.3, Anion Gap 13.5, BUN 40 H, Creatinine 1.63 H, Est GFR (Non-Af Amer) 43 L D, BUN/Creatinine Ratio 24.5 H, Random Glucose 276 H, Calcium 8.7, Calcium Adj for Albumin 9.5, Total Bilirubin 1.0, AST 19, ALT 18 L, Alkaline Phosphatase 68, Total Protein 6.6, Albumin 2.6 L 01/17/20 13:10: Sodium 141, Plasma Sodium 144 H, Potassium 3.8 D, Chloride 106, Carbon Dioxide 24.9, Anion Gap 13.9 H, BUN 37 H, Creatinine 1.70 H, Est GFR (Non-Af Amer) 41 L, BUN/Creatinine Ratio 21.8 H, Random Glucose 309 H, Calcium 9.0, Calcium Adj for Albumin 9.6, Total Bilirubin 1.2 H, AST 26, ALT 22, Alkaline Phosphatase 78, Total Protein 7.1, Albumin 2.9 L 01/18/20 06:25: WBC 14.6 H, RBC 5.01, Hgb 15.0, Hct 46.8, MCV 93.4, MCH 29.9, MCHC 32.1, RDW 12.8, Plt Count 270, MPV 8.5, Immature Gran % (Auto) 0.30, Immature Gran # (Auto) 0.05 H, Neutrophils % 66.7, Lymphocytes % 26.7, Monocytes % 4.9, Eosinophils % 1.0, Basophils % 0.4, Nucleated RBC % 0.0, Neutrophils # 9.7 H, Lymphocytes # 3.90 H, Monocytes # 0.7, Eosinophils # 0.2, Absolute Basophils 0.1 01/18/20 06:25: Sodium 139, Plasma Sodium 139, Potassium 4.0, Chloride 106, Carbon Dioxide 24.5, Anion Gap 12.5, BUN 32 H, Creatinine 1.39, Est GFR (Non-Af Amer) 52 L D, BUN/Creatinine Ratio 23.0 H, Random Glucose 110 D, Calcium 9.0, Calcium Adj for Albumin 9.7, Total Bilirubin 1.0, AST 30, ALT 15 L, Alkaline Phosphatase 72, Total Protein 6.4, Albumin 2.7 L 01/19/20 06:45: WBC 9.8 D, RBC 4.81, Hgb 14.4, Hct 43.9, MCV 91.3, MCH 29.9, MC HC 32.8, RDW 12.7, Plt Count 267, MPV 8.6, Immature Gran % (Auto) 0.20, Immature Gran # (Auto) 0.02, Neutrophils % 56.2, Lymphocytes % 35.0, Monocytes % 6.7, Eosinophils % 1.4, Basophils % 0.5, Nucleated RBC % 0.0, Neutrophils # 5.5, Lymphocytes # 3.43, Monocytes # 0.7, Eosinophils # 0.1, Absolute Basophils 0.1 01/19/20 06:45: Sodium 138, Plasma Sodium 137, Potassium 3.2 L, Chloride 106, Carbon Dioxide 22.0 L, Anion Gap 13.2, BUN 22, Creatinine 1.24, Est GFR (Non-Af Amer) 59 L, BUN/Creatinine Ratio 17.7, Random Glucose 57 L D, Calcium 8.5, Calcium Adj for Albumin 9.5, Total Bilirubin 0.9, AST 26, ALT 15 L, Alkaline Phosphatase 54, Total Protein 5.9 L, Albumin 2.4 L 01/19/20 06:45: Mean Blood Glucose 315, Hemoglobin A1c 12.6 H 01/20/20 06:25: WBC 11.3 H, RBC 4.91, Hgb 14.8, Hct 45.1, MCV 91.9, MCH 30.1, MCHC 32.8, RDW 12.7, Plt Count 243, MPV 8.6, Immature Gran % (Auto) 0.20, Immature Gran # (Auto) 0.02, Neutrophils % 48.7, Lymphocytes % 41.8, Monocytes % 6.9, Eosinophils % 2.0, Basophils % 0.4, Nucleated RBC % 0.0, Neutrophils # 5.5, Lymphocytes # 4.71 H, Monocytes # 0.8, Eosinophils # 0.2, Absolute Basophils 0.1 01/20/20 06:25: Sodium 137, Plasma Sodium 136, Potassium 3.5, Chloride 103, Carbon Dioxide 26.4, Anion Gap 11.1, BUN 21, Creatinine 1.35, Est GFR (Non-Af Amer) 54 L, BUN/Creatinine Ratio 15.6, Random Glucose 60 L, Calcium 8.8, Calcium Adj for Albumin 9.7, Total Bilirubin 1.0, AST 29, ALT 17 L, Alkaline Phosphatase 61, Total Protein 6.2, Albumin 2.5 L Discharge Location: Home Disposition: [facility] Service Home Health Agency: [facility] Home Health Condition: Fair Face to Face Encounter completed per CMS Guidelines: Yes Discharge Activity: Activity as tolerated Discharge Diet: Consistent carbs Referrals: Jayce Gross DO [Primary Care Provider] - One Week (Phone or video visit if desired) Dyana Irwin DPM [Staff Physician] - (Next available for diabetic foot care) Codey Colon MD [Associate] - (1-2 weeks for possible dorsal slit procedure) Problem Oriented Discharge Instructions to Patient/Family: Urinary Tract Infection, Adult, [id number], Acute Kidney Injury, Adult Additional Patient Instructions (free text): [facility] Home Health new at discharge- fax discharge summary, orders ,and medication list and call report. Follow up with [facility] Urology in 1-2 at [facility]. Complete Home Medications List: Complete Home Medication List: Glimepiride 8 mg PO DAILY 01/04/20 Aspirin [Aspirin EC] 81 mg PO DAILY 01/16/20 Blood Sugar Diagnostic [Accu-Chek Guide Test Strip] 1 ea MC BID 01/16/20 Brinzolamide [Azopt 1% Ophthalmic Suspension] 1 drp OPHTHALMIC (EYE) BID 01/16/20 Insulin Glargine,Hum.rec.anlog [Lantus] 50 units SC HS 01/16/20 Multivitamin 1 ea PO DAILY 01/16/20 Simvastatin 20 mg PO HS 01/16/20 metFORMIN HCL [Metformin HCl] 1,000 mg PO BID 01/16/20 Oxybutynin Chloride [Ditropan] 5 mg PO DAILY 01/17/20 Forms: Patient Portal Registration
[2020-01-20] MEDS ORDERED: FLU VACC QS2020-21(6MOS UP)/PF 60 MCG/0.5 ML SYRINGE IM ONE (14:30)
[2020-01-20 17:02] VITALS: BP 123/69
== END 2020-01-20 16:56 | disposition home health service (06) ==
LOC: ER 12:29 → MS 14:28 → INTOOBSV 14:28 → MS 15:54
PROVIDERS: ADMIT Family Medicine; ATTEND Family Medicine

== ENCOUNTER 2020-04-28 09:20 | Inpatient (IN) ==
[2020-04-28] MEDS ORDERED: ACETAMINOPHEN 1,000 MG/100 ML BTL IV ONE (09:33)
[2020-04-28] MEDS ORDERED: NORMAL SALINE 1,000 ML IV ONE ×2 (09:33→10:58)
--- NOTE | 2020-04-28 09:50 | ERNOTE ---
Medical Problem HPI - Narrative Date of Service: 04/28/20 - General Chief Complaint: General Assessment Time Seen by Provider: 04/28/20 09:23 Source: patient Exam Limitations: clinical condition - Immun/Allergies/Home Medications Immunizations: IMMUNIZATION HX Immunizations Up to Date Yes History of Influenza Vaccine Yes Hx Pneumococcal Vaccination Yes Allergies/Adverse Reactions: Allergies Penicillins Adverse Reaction (Mild, Verified 04/28/20 09:28) "DEATHLY ILL" pioglitazone HCl [From Actos] Adverse Reaction (Mild, Verified 04/28/20 09:28) "ZOMBIE LIKE" Home Medications: HOME MEDICATIONS Glimepiride 8 mg PO DAILY 01/04/20 [Last Taken Unknown] Aspirin [Aspirin EC] 81 mg PO DAILY 01/16/20 [Last Taken Unknown] Blood Sugar Diagnostic [Accu-Chek Guide Test Strip] 1 ea MC BID 01/16/20 [Last Taken Unknown] Brinzolamide [Azopt 1% Ophthalmic Suspension] 1 drp OPHTHALMIC (EYE) BID 01/16/20 [Last Taken Unknown] Insulin Glargine,Hum.rec.anlog [Lantus] 50 units SC HS 01/16/20 [Last Taken Unknown] Multivitamin 1 ea PO DAILY 01/16/20 [Last Taken Unknown] Simvastatin 20 mg PO HS 01/16/20 [Last Taken Unknown] flash glucose scanning reader See Rx Instructions .ROUTE .MEDSUPPLY #1 ea 01/20/20 [Last Taken Unknown] metformin 1,000 mg tablet 1,000 mg PO BID #180 tab 01/20/20 [Last Taken Unknown] oxybutynin chloride 5 mg tablet 5 mg PO DAILY #90 tab 01/20/20 [Last Taken Unknown] simvastatin 40 mg tablet 20 mg PO QPM #45 tab 01/22/20 [Last Taken Unknown] flash glucose sensor See Rx Instructions .ROUTE .MEDSUPPLY #1 ea 04/21/20 [Last Taken Unknown] - History of Present History Narrative: Patient arrives via EMS from home where he has been sick since Monday. Cannot walk by report, feeling sick. He will only answer some yes and no questions so history is very compromised. Apparently he has been sick since Monday, taking medications as directed. Not able to walk due to generalized weakness. No fever noted. No apparent vomiting. Otherwise history very compromised. Timing: constant, getting worse Severity: severe Modifying Factors - (Improves): Present: other - nothing Modifying Factors - (Worsens): Present: other - nothing Review of Systems - Narrative Narrative: ROS unobtainable in entirety due to patient condition Medical History (Last Reviewed 04/28/20 @ 09:47 by Nirmal Louise MD) Weakness (Acute) Onset Date: 01/04/20 Urinary tract infection (Acute) Onset Date: 01/16/20 Hyperosmolar hyperglycemic state (HHS) (Acute) Onset Date: 01/16/20 Infectious encephalopathy (Acute) Onset Date: 01/17/20 Atrial fibrillation (Chronic) Onset Date: 01/17/20 Diabetes (Chronic) DKA (diabetic ketoacidoses) (Resolved) WIN (acute kidney injury) (Acute) Hyperglycemia due to diabetes mellitus Onset Date: 01/16/20 Irregular heart beat Diabetes Hyperlipidemia Acute alteration in mental status Onset Date: 01/04/20 Colon cancer Onset Date: Dehydration Onset Date: 01/06/20 Dermatitis, unspecified Onset Date: 09/18/18 Dr. Nicole Patton. [facility]. Gastroenteritis Hyperglycemia Onset Date: 01/04/20 Hyperglycemia without ketosis Onset Date: 01/06/20 Hypernatremia Onset Date: 01/16/20 Hypoglycemia Lactic acidosis Onset Date: 01/16/20 Lactic acidosis due to diabetes mellitus Onset Date: 01/04/20 Leukocytosis Onset Date: 01/04/20 Surgical History: Surgical History (Last Reviewed 04/28/20 @ 09:47 by Nirmal Louise MD) History of colon resection History of right knee surgery History of total left knee replacement Family History: Family History (Last Reviewed 04/28/20 @ 09:47 by Nirmal Louise MD) Other No pertinent family history Social History: (Last Reviewed 04/28/20 @ 09:47 by Nirmal Louise MD) Social History: adopted: No Marital status: household members: spouse number of children: 1 current occupational status: retired 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, 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 Highest level of school completed/degree received: high school graduate Service: Yes branch: [employer] status: retired Tobacco: Smoking Status: Former smoker Alcohol: alcohol intake: former Substance Use: substance use type: does not use Dietary Habits: caffeine: No Amirah/Judaism: special amirah needs: No Physical Exam - Physical Exam General Appearance: Present: alert, no apparent distress Head Exam: Present: normal inspection, no evidence of injury Eye Exam: Normal inspection: bilateral, PERRL: bilateral Ears, Nose, Throat: Present: dry mucous membranes Neck: Present: normal inspection Respiratory: Present: no respiratory distress, normal breath sounds, no accessory muscle use, lungs clear Cardiovascular/Chest: Present: normal peripheral pulses, tachycardia Gastrointestinal/Abdominal: Present: normal bowel sounds, soft, other - mild diffuse tendneress to deep palpatoin. No localizing point tenderness Back Exam: Absent: CVA tenderness (R), CVA tenderness (L) Extremity Exam: Present: normal inspection, normal range of motion Neurological Exam: Present: alert, no motor/sensory deficits, other - generalized weakness, no acute unilateral focal motor or sensory deficits Skin Exam: Present: normal color, warm/dry Progress - Results and Orders Patient's Lab Results:: I have reviewed the patient's lab results. - Vital Signs Patient's Vital Signs:: I have reviewed the patient's vital signs. Vital Signs: Vital Signs 04/28/20 09:25 Temperature 37.3 C Pulse Rate 116 H Respiratory Rate 29 H Blood Pressure 125/75 O2 Sat by Pulse Oximetry 100 - EKG EKG #1 EKG: atrial fibrillation EKG read: Interp. by me EKG Comments: A FIB rate 112. Non-specific ST/T wave changes, no STMEI noted - X-Ray X-Ray #1 X-Ray: chest Interpretation: Interp. by me X-ray Comments: I personally reviewed CXR image as well as official radiology report. - Progress/Reassessment Chief Complaint: General Assessment Progress Note-Subjective: 04/28/20 11:34 Patient given IV Fluids, clinically dehydrated. FeNa 1. I spoke with Dr Gross who will admit the patient. I discussed this with the patient who is agreeable. Departure Clinical Impression: Generalized weakness, WIN (acute kidney injury), Dehydration, Hyperglycemia - Departure Disposition: Still a patient Condition: Fair Referrals: Jayce Gross DO [Primary Care Provider] -
[2020-04-28 10:06] LABS: Hematocrit 39.6 % (42.0-52.0); Hemoglobin 13.1 gm/dL (13.5-18.0); Mean Cell Volume 91.7 fl (78-100); Mean Corpuscular Hemoglobin 30.3 pg (27-31); Mean Corpuscular Hgb Conc 33.1 g/dl (32-36); Mean Platelet Volume 9.7 fl (8-11.3); Platelet Count 283 K/mm3 (150-450); Red Blood Count 4.32 M/mm3 (4.7-6.0); White Blood Count 16.6 K/mm3 (4.0-10.5)
[2020-04-28 10:22] LABS: Total Cells Counted 100
[2020-04-28 10:29] LABS: ALT 18 U/L (19-67); AST 19 U/L (0-48); Albumin * 3.1 gm/dl (3.4-5.0); Alkaline Phosphatase * 80 U/L (50-170); BUN/Creatinine Ratio 27.5 (9.0-21.6); Bilirubin, Total 0.9 mg/dL (0.0-1.1); Blood Urea Nitrogen 88 mg/dL (6-23); CK Total * 282 U/L (0-259); Ca. Corrected For Albumin 10.5 mg/dL (8.4-10.2); Calcium * 10.1 mg/dL (7.9-10.9); Carbon Dioxide 16.5 mmol/L (24-32.6); Chloride 107 mmol/L (97-106); Lipase 51 U/L (73-393); Potassium 4.5 mmol/L (3.4-4.6); Sodium 142 mmol/L (132-142); TSH * 3.499 uIU/mL (0.358-3.74); Total Protein 8.6 gm/dL (6.2-8.2)
[2020-04-28 10:30] LABS: Troponin I 0.059 ng/mL (0.00-0.10)
[2020-04-28 10:57] LABS: Lymphocyte 5 % (20-51); Monocyte 4 % (0-9); Neutrophil 91 % (42-75); Neutrophil # 15.1 K/mm3 (1.3-6.0); Platelet Estimate Normal (NORMAL); RBC Morphology Normal (NORMAL)
[2020-04-28 11:09] LABS: Glucose * 601 mg/dL (70-110)
[2020-04-28 11:11] LABS: Urine Bilirubin Negative (NEGATIVE); Urine Blood 50 /ul (NEGATIVE); Urine Ketone Negative (NEGATIVE); Urine Nitrite Negative (NEGATIVE); Urine Protein 30 mg/dL (NEGATIVE); Urine Urobilinogen Normal (NORMAL); Urine pH 5.5 pH (5.0-7.0)
[2020-04-28 11:13] LABS: COVID 19 - FMCH Not Detected (NotDetected)
[2020-04-28 11:20] LABS: Urine Amorphous Sediment Moderate - 2+ (NONE-FEW); Urine Appearance Slightly Cloudy (CLEAR); Urine Bacteria TRACE; Urine Color Yellow; Urine RBC 0-5 /hpf (0-5); Urine WBC 0-5 /hpf (0-5)
[2020-04-28] MEDS: NORMAL SALINE 1,000 ML IV PRN (15:00)
[2020-04-28] MEDS: INSULIN LISPRO 100 UNITS/ML VIAL SC SCH (17:09)
--- NOTE | 2020-04-28 17:10 | HP ---
Chief Complaint - Chief Complaint Date of Service: 04/28/20 Time of Service: 16:49 Chief Complaint: weakness History of Present Illness: Trever is an 84 yo male with insulin dependent diabetes mellitus type II. He was brought to [facility] ER by EMS due to weakness and feeling sick. The report is that he hasn't felt well for the last 2 days with weakness. In the ER his blood sugar was 600 and his creatinine was 3.2 with a baseline of 1.3. He is a poor historian and reports having no concerns. He denies fever, chills, nausea, or vomiting. He believes he has been drinking and eating normally. He also believes his sugars have been normal and thinks that he felt well yesterday. He is reported to be wearing two different glucose monitors (arm and on his back). Medical History (Last Reviewed 04/28/20 @ 13:16 by Liane Michelle RN) Weakness (Acute) Onset Date: 01/04/20 Urinary tract infection (Acute) Onset Date: 01/16/20 Hyperosmolar hyperglycemic state (HHS) (Acute) Onset Date: 01/16/20 Infectious encephalopathy (Acute) Onset Date: 01/17/20 Atrial fibrillation (Chronic) Onset Date: 01/17/20 Diabetes (Chronic) DKA (diabetic ketoacidoses) (Resolved) WIN (acute kidney injury) (Acute) Hyperglycemia due to diabetes mellitus Onset Date: 01/16/20 Irregular heart beat Diabetes Hyperlipidemia Acute alteration in mental status Onset Date: 01/04/20 Colon cancer Onset Date: ~2006 Dehydration Onset Date: 01/06/20 Dermatitis, unspecified Onset Date: 09/18/18 Dr. Nicole Patton. [facility]. Gastroenteritis Hyperglycemia Onset Date: 01/04/20 Hyperglycemia without ketosis Onset Date: 01/06/20 Hypernatremia Onset Date: 01/16/20 Hypoglycemia Lactic acidosis Onset Date: 01/16/20 Lactic acidosis due to diabetes mellitus Onset Date: 01/04/20 Leukocytosis Onset Date: 01/04/20 Surgical History: Surgical History (Last Reviewed 04/28/20 @ 13:16 by Liane Michelle RN) History of colon resection History of right knee surgery History of total left knee replacement Family History: Family History (Last Reviewed 04/28/20 @ 13:16 by Liane Michelle RN) Other No pertinent family history Social History: (Last Reviewed 04/28/20 @ 13:16 by Liane Michelle RN) Social History: adopted: No Marital status: household members: spouse number of children: 1 current occupational status: retired 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, 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 Highest level of school completed/degree received: high school graduate Service: Yes branch: [employer] status: retired Tobacco: Smoking Status: Former smoker Alcohol: alcohol intake: former Substance Use: substance use type: does not use Dietary Habits: caffeine: No Amirah/Presybeterian: special amirah needs: No Review Of Systems (GEN) - Review of Systems Additional Comments: Unable to get an accurate HPI due to condition, he reports negative ROS Immunizations: IMMUNIZATION HX Immunizations Up to Date Yes History of Influenza Vaccine Yes Hx Pneumococcal Vaccination Yes Allergies/Adverse Reactions: Allergies Allergy/AdvReac Type Severity Reaction Status Date / Time Penicillins AdvReac Mild "DEATHLY Verified 04/28/20 13:06 ILL" pioglitazone HCl [From Actos] AdvReac Mild "ZOMBIE Verified 04/28/20 13:06 LIKE" Home Medications: HOME MEDICATIONS Glimepiride 8 mg PO DAILY 01/04/20 [Last Taken Unknown] Aspirin [Aspirin EC] 81 mg PO DAILY 01/16/20 [Last Taken Unknown] Blood Sugar Diagnostic [Accu-Chek Guide Test Strip] 1 ea MC BID 01/16/20 [Last Taken Unknown] Insulin Glargine,Hum.rec.anlog [Lantus] 50 units SC HS 01/16/20 [Last Taken Unknown] Multivitamin 1 ea PO DAILY 01/16/20 [Last Taken Unknown] flash glucose scanning reader See Rx Instructions .ROUTE .MEDSUPPLY #1 ea 01/20/20 [Last Taken Unknown] metformin 1,000 mg tablet 1,000 mg PO BID #180 tab 01/20/20 [Last Taken Unknown] oxybutynin chloride 5 mg tablet 5 mg PO DAILY #90 tab 01/20/20 [Last Taken Unknown] flash glucose sensor See Rx Instructions .ROUTE .MEDSUPPLY #1 ea 04/21/20 [Last Taken Unknown] Brinzolamide [Azopt] 1 drp OP BID 04/28/20 [Last Taken Unknown] Simvastatin 20 mg PO HS 04/28/20 [Last Taken Unknown] Exam - Exam Vital Signs: Vital Signs - Last Taken Temp 37.0 C 04/28/20 15:03 Pulse 96 04/28/20 15:03 Resp 16 04/28/20 15:03 BP 146/73 04/28/20 15:03 Pulse Ox 96 04/28/20 15:03 Constitutional: Present: Alert, No distress, Other - Oriented x 2; recognizes me ENT Exam: Present: hearing grossly normal Eye Exam: bilateral eye: normal inspection Respiratory: Present: lungs clear, normal breath sounds, no respiratory distress Cardiovascular/Chest: Present: regular rate, rhythm, no edema, no murmur Peripheral Pulses: radial (R): 2+, radial (L): 2+ Abdomen: Present: Normal bowel sounds, soft, nontender, nondistended, no hepatospenomegaly Extremity: Present: normal inspection. Absent: lower extremity edema Skin Exam: Present: normal color, warm/dry, no cyanosis Eye contact: Present: cooperative, good eye contact, normal speech Diagnostic Studies: Abnormal Lab Results 04/28/20 04/28/20 04/28/20 Range/Units 09:55 09:55 09:55 WBC 16.6 H (4.0-10.5) K/mm3 RBC 4.32 L (4.7-6.0) M/mm3 Hgb 13.1 L (13.5-18.0) gm/dL Hct 39.6 L (42.0-52.0) % Neutrophils % (Manual) 91 H (42-75) % Lymphocytes % (Manual) 5 L (20-51) % Neutrophils # (Manual) 15.1 H (1.3-6.0) K/mm3 Lymphocytes # (Manual) 0.8 L (1.5-3.5) k/mm3 Plasma Sodium 150 H (130-142) mmol/L Chloride 107 H (97-106) mmol/L Carbon Dioxide 16.5 L (24-32.6) mmol/L Anion Gap 23.0 H (6.8-13.8) mmol/L BUN 88 H D (6-23) mg/dL Creatinine 3.20 H D (0.4-1.4) mg/dL Est GFR (Non-Af Amer) 20 L D (60-130) mL/min BUN/Creatinine Ratio 27.5 H (9.0-21.6) Random Glucose 601 H (70-110) mg/dL Lactic Acid, Venous 2.7 H* (0.4-2.0) mmol/L Calcium Adj for Albumin 10.5 H (8.4-10.2) mg/dL ALT 18 L (19-67) U/L Creatine Kinase 282 H (0-259) U/L Total Protein 8.6 H (6.2-8.2) gm/dL Albumin 3.1 L (3.4-5.0) gm/dl Lipase 51 L (73-393) U/L Urine Protein (NEGATIVE) mg/dL Urine Glucose (UA) (NEGATIVE) mg/dL Urine Blood (NEGATIVE) /ul Amorphous Sediment (NONE-FEW) Ur Random Creatinine (60-200) mg/dL Ur Random Sodium (20-110) mmol/L 04/28/20 04/28/20 Range/Units 10:36 10:36 WBC (4.0-10.5) K/mm3 RBC (4.7-6.0) M/mm3 Hgb (13.5-18.0) gm/dL Hct (42.0-52.0) % Neutrophils % (Manual) (42-75) % Lymphocytes % (Manual) (20-51) % Neutrophils # (Manual) (1.3-6.0) K/mm3 Lymphocytes # (Manual) (1.5-3.5) k/mm3 Plasma Sodium (130-142) mmol/L Chloride (97-106) mmol/L Carbon Dioxide (24-32.6) mmol/L Anion Gap (6.8-13.8) mmol/L BUN (6-23) mg/dL Creatinine (0.4-1.4) mg/dL Est GFR (Non-Af Amer) (60-130) mL/min BUN/Creatinine Ratio (9.0-21.6) Random Glucose (70-110) mg/dL Lactic Acid, Venous (0.4-2.0) mmol/L Calcium Adj for Albumin (8.4-10.2) mg/dL ALT (19-67) U/L Creatine Kinase (0-259) U/L Total Protein (6.2-8.2) gm/dL Albumin (3.4-5.0) gm/dl Lipase (73-393) U/L Urine Protein 30 H (NEGATIVE) mg/dL Urine Glucose (UA) >=1000 H (NEGATIVE) mg/dL Urine Blood 50 H (NEGATIVE) /ul Amorphous Sediment Moderate - 2+ H (NONE-FEW) Ur Random Creatinine 36.3 L (60-200) mg/dL Ur Random Sodium 16 L (20-110) mmol/L Laboratory Results WBC 16.6 K/mm3 (4.0-10.5) H 04/28/20 09:55 RBC 4.32 M/mm3 (4.7-6.0) L 04/28/20 09:55 Hgb 13.1 gm/dL (13.5-18.0) L 04/28/20 09:55 Hct 39.6 % (42.0-52.0) L 04/28/20 09:55 MCV 91.7 fl (78-100) 04/28/20 09:55 MCH 30.3 pg (27-31) 04/28/20 09:55 MCHC 33.1 g/dl (32-36) 04/28/20 09:55 RDW 13.0 % (11.5-14.0) 04/28/20 09:55 Plt Count 283 K/mm3 (150-450) 04/28/20 09:55 MPV 9.7 fl (8-11.3) 04/28/20 09:55 Neutrophils % (Manual) 91 % (42-75) H 04/28/20 09:55 Lymphocytes % (Manual) 5 % (20-51) L 04/28/20 09:55 Monocytes % (Manual) 4 % (0-9) 04/28/20 09:55 Neutrophils # (Manual) 15.1 K/mm3 (1.3-6.0) H 04/28/20 09:55 Lymphocytes # (Manual) 0.8 k/mm3 (1.5-3.5) L 04/28/20 09:55 Monocytes # (Manual) 0.7 k/mm3 (0.0-1.0) 04/28/20 09:55 Platelet Estimate Normal (NORMAL) 04/28/20 09:55 RBC Morphology Normal (NORMAL) 04/28/20 09:55 Sodium 142 mmol/L (132-142) 04/28/20 09:55 Plasma Sodium 150 mmol/L (130-142) H 04/28/20 09:55 Potassium 4.5 mmol/L (3.4-4.6) D 04/28/20 09:55 Chloride 107 mmol/L (97-106) H 04/28/20 09:55 Carbon Dioxide 16.5 mmol/L (24-32.6) L 04/28/20 09:55 Anion Gap 23.0 mmol/L (6.8-13.8) H 04/28/20 09:55 BUN 88 mg/dL (6-23) H D 04/28/20 09:55 Creatinine 3.20 mg/dL (0.4-1.4) H D 04/28/20 09:55 Est GFR (Non-Af Amer) 20 mL/min (60-130) L D 04/28/20 09:55 BUN/Creatinine Ratio 27.5 (9.0-21.6) H 04/28/20 09:55 Random Glucose 601 mg/dL (70-110) H 04/28/20 09:55 Lactic Acid, Venous 1.8 mmol/L (0.4-2.0) 04/28/20 12:42 Calcium 10.1 mg/dL (7.9-10.9) 04/28/20 09:55 Calcium Adj for Albumin 10.5 mg/dL (8.4-10.2) H 04/28/20 09:55 Total Bilirubin 0.9 mg/dL (0.0-1.1) 04/28/20 09:55 AST 19 U/L (0-48) 04/28/20 09:55 ALT 18 U/L (19-67) L 04/28/20 09:55 Alkaline Phosphatase 80 U/L (50-170) 04/28/20 09:55 Creatine Kinase 282 U/L (0-259) H 04/28/20 09:55 Troponin I 0.059 ng/mL (0.00-0.10) 04/28/20 09:55 Total Protein 8.6 gm/dL (6.2-8.2) H 04/28/20 09:55 Albumin 3.1 gm/dl (3.4-5.0) L 04/28/20 09:55 Lipase 51 U/L (73-393) L 04/28/20 09:55 TSH 3.499 uIU/mL (0.358-3.74) 04/28/20 09:55 Urine Color Yellow 04/28/20 10:36 Urine Appearance Slightly cloudy (CLEAR) 04/28/20 10:36 Urine pH 5.5 pH (5.0-7.0) 04/28/20 10:36 Ur Specific [place] 1.010 SP.GR. (1.005-1.030) 04/28/20 10:36 Urine Protein 30 mg/dL (NEGATIVE) H 04/28/20 10:36 Urine Glucose (UA) >=1000 mg/dL (NEGATIVE) H 04/28/20 10:36 Urine Ketones Negative mg/dL (NEGATIVE) 04/28/20 10:36 Urine Blood 50 /ul (NEGATIVE) H 04/28/20 10:36 Urine Nitrate Negative (NEGATIVE) 04/28/20 10:36 Urine Bilirubin Negative mg/dl (NEGATIVE) 04/28/20 10:36 Urine Urobilinogen Normal EU/dl (NORMAL) 04/28/20 10:36 Ur Leukocyte Esterase Negative /ul (NEGATIVE) 04/28/20 10:36 Urine RBC 0-5 /hpf (0-5) 04/28/20 10:36 Urine WBC 0-5 /hpf (0-5) 04/28/20 10:36 Ur Epithelial Cells None seen /hpf (0-5) 04/28/20 10:36 Amorphous Sediment Moderate - 2+ (NONE-FEW) H 04/28/20 10:36 Urine Bacteria Trace (NONE) 04/28/20 10:36 Urine Culture Comments Culture to follow 04/28/20 10:36 Ur Random Creatinine 36.3 mg/dL (60-200) L 04/28/20 10:36 Ur Random Sodium 16 mmol/L (20-110) L 04/28/20 10:36 Serum Ketones Negative (NEGATIVE) 04/28/20 09:55 Influenza Type A Ag Negative (NEGATIVE) 04/28/20 10:03 Influenza Type B Ag Negative (NEGATIVE) 04/28/20 10:03 SARS-CoV-2 (PCR) Not detected (NotDetected) 04/28/20 10:03 Assessment/Plan - Narrative Narrative: Trever is an 84 yo male with acute kidney injury with Creatinine of 3.2 with a baseline of 1.3. This appears to be from moderate dehydration and will treat with IV fluids. He has significant hyperglycemia with sugars at 600. Will restart home lantus and give humalog sliding scale. No evidence of DKA or infection at this time. He currently is confused from metabolic encephalopathy and is a poor historian. This should correct with fluids and improvement of glucose. - Assessment/Plan (1) WIN (acute kidney injury) Problem: Acute (2) Moderate dehydration Problem: Acute (3) Hyperglycemia Problem: Acute (4) Metabolic encephalopathy Problem: Acute
[2020-04-28] MEDS ORDERED: SIMVASTATIN 40 MG TABLET PO SCH (21:00)
[2020-04-28] MEDS ORDERED: INSULIN GLARGINE,HUM.REC.ANLOG 100 UNITS/ML VIAL SC SCH (21:00)
[2020-04-28] MEDS: BRINZOLAMIDE 100 DROP BTL OP SCH (21:59)
[2020-04-28] MEDS: NYSTATIN 15 APPL BTL TP SCH (22:08)
[2020-04-29] MEDS: NORMAL SALINE 1,000 ML IV PRN ×4 (01:01→22:10)
[2020-04-29] MEDS ORDERED: METOPROLOL TARTRATE 1 MG/ML AMPUL IV ONE (06:26)
[2020-04-29 06:40] LABS: Albumin * 2.8 gm/dl (3.4-5.0); Anion Gap 16.4 mmol/L (6.8-13.8); BUN/Creatinine Ratio 28.5 (9.0-21.6); Bilirubin, Total 0.7 mg/dL (0.0-1.1); Ca. Corrected For Albumin 9.7 mg/dL (8.4-10.2); Calcium * 9.1 mg/dL (7.9-10.9); Carbon Dioxide 23.5 mmol/L (24-32.6); Potassium 3.9 mmol/L (3.4-4.6)
[2020-04-29] MEDS: INSULIN LISPRO 100 UNITS/ML VIAL SC SCH ×3 (07:23→17:17)
[2020-04-29] MEDS: ASPIRIN 81 MG TABLET.DR PO SCH (09:13)
[2020-04-29] MEDS: GLIMEPIRIDE 4 MG TABLET PO SCH (09:13)
[2020-04-29] MEDS: BRINZOLAMIDE 100 DROP BTL OP SCH ×2 (09:13→20:33)
[2020-04-29] MEDS: MULTIVITAMINS 1 CAP CAPSULE PO SCH (09:14)
[2020-04-29] MEDS: OXYBUTYNIN CHLORIDE 5 MG TABLET PO SCH (09:14)
[2020-04-29] MEDS: NYSTATIN 15 APPL BTL TP SCH ×2 (09:14→20:34)
[2020-04-29] MEDS: METOPROLOL TARTRATE 50 MG TABLET PO SCH ×2 (10:18→20:33)
[2020-04-29] MEDS ORDERED: LORazepam 2 MG/ML DISP.SYRIN IV PRN (13:35)
--- NOTE | 2020-04-29 13:56 | PN ---
Subjective - Date and Time Seen Date: 04/29/20 Time: 13:43 Subjective Narrative: Trever reports no concerns today. Nursing reports he was leaking urine, cantor was placed to get more accurate I/O due to acute kidney injury. He has about 1100ml return after cantor placed. He has been pulling out IV and pulling at cantor. He denies any concerns. Creatinine is improved today to 2.6 from 3.2, but still not near his baseline of 1.3. Sodium 150. Objective - Vitals Vitals: Last Vital Signs Temp 36.4 C 04/29/20 10:17 Pulse 160 H 04/29/20 10:18 Resp 18 04/29/20 10:17 BP 131/73 04/29/20 10:18 Pulse Ox 90 L 04/29/20 10:17 - Abnormal Lab Findings Abnormal Lab Findings: Abnormal Lab Results 04/29/20 Range/Units 06:20 Sodium 150 H (132-142) mmol/L Plasma Sodium 152 H (130-142) mmol/L Chloride 114 H (97-106) mmol/L Carbon Dioxide 23.5 L (24-32.6) mmol/L Anion Gap 16.4 H (6.8-13.8) mmol/L BUN 76 H (6-23) mg/dL Creatinine 2.67 H D (0.4-1.4) mg/dL Est GFR (Non-Af Amer) 24 L (60-130) mL/min BUN/Creatinine Ratio 28.5 H (9.0-21.6) Random Glucose 218 H D (70-110) mg/dL AST 83 H (0-48) U/L Albumin 2.8 L (3.4-5.0) gm/dl - Exam Constitutional: Present: Alert ENT Exam: Present: hearing grossly normal Respiratory: Present: lungs clear, normal breath sounds, no respiratory distress Cardiovascular/Chest: Present: no edema, irregularly irregular Abdomen: Present: Normal bowel sounds, soft, nontender, nondistended Skin Exam: Present: normal color, warm/dry, no cyanosis Neurologic: Present: no motor/sensory deficits, alert, other - oriented x 2, confused Eye contact: Present: cooperative, good eye contact, normal speech Cauti Physician Documentation - Urinary Catheter Management Urethral (Cantor) Cath placed during this visit: Yes Reason for Continuing Indwelling Catheter: Measure accurate output Date of Insertion: 04/29/20 Time of Insertion: 11:45 Assessment/Plan Plan Narrative: Acute kidney injury improved. Mostly prerenal but he did have some BPH with leak of urine and with cantor had 1100 urine out indicating a possible obstructive component. Will start flomax. Continue IV fluids and monitor renal function. He is getting restless at times and pulling out IV will give Ativan prn restlessness. Will monitor blood sugars which are elevated, will increase lantus to 55 units HS, continue sliding scale insulin. Acute kidney injury is improved but not at his baseline. He will require more midnights to treat, will make inpatient status. - Problems/Diagnosis (1) WIN (acute kidney injury) Problem: Acute (2) Moderate dehydration Problem: Acute (3) Hyperglycemia Problem: Acute (4) Metabolic encephalopathy Problem: Acute (5) Insulin dependent type 2 diabetes mellitus Problem: Chronic
[2020-04-29] MEDS: TAMSULOSIN HCL 0.4 MG CAP.SR.24H PO SCH (17:17)
[2020-04-29] MEDS: SIMVASTATIN 20 MG TABLET PO SCH (20:34)
[2020-04-29] MEDS ORDERED: INSULIN GLARGINE,HUM.REC.ANLOG 100 UNITS/ML VIAL SC SCH (21:00)
[2020-04-30] MEDS: NORMAL SALINE 1,000 ML IV PRN (03:13)
[2020-04-30] MEDS: INSULIN LISPRO 100 UNITS/ML VIAL SC SCH ×3 (07:37→17:23)
[2020-04-30 08:41] LABS: Hematocrit 38.1 % (42.0-52.0); Hemoglobin 12.4 gm/dL (13.5-18.0); Mean Cell Volume 93.6 fl (78-100); Mean Corpuscular Hemoglobin 30.5 pg (27-31); Mean Corpuscular Hgb Conc 32.5 g/dl (32-36); Mean Platelet Volume 9.3 fl (8-11.3); Neutrophil # 12.6 K/mm3 (1.3-6.0); Neutrophil % 80.2 % (42-75.0); Platelet Count 223 K/mm3 (150-450); Red Blood Count 4.07 M/mm3 (4.7-6.0); Red Cell Distribution Width 13.5 % (11.5-14.0); White Blood Count 15.7 K/mm3 (4.0-10.5)
[2020-04-30 09:10] LABS: Albumin * 2.3 gm/dl (3.4-5.0); Anion Gap 18.2 mmol/L (6.8-13.8); BUN/Creatinine Ratio 26.1 (9.0-21.6); Bilirubin, Total 0.8 mg/dL (0.0-1.1); Ca. Corrected For Albumin 9.5 mg/dL (8.4-10.2); Calcium * 8.5 mg/dL (7.9-10.9); Carbon Dioxide 20.3 mmol/L (24-32.6); Potassium 3.5 mmol/L (3.4-4.6); Total Protein 7.1 gm/dL (6.2-8.2)
[2020-04-30] MEDS: BRINZOLAMIDE 100 DROP BTL OP SCH ×2 (09:24→20:40)
[2020-04-30] MEDS: GLIMEPIRIDE 4 MG TABLET PO SCH (09:24)
[2020-04-30] MEDS: METOPROLOL TARTRATE 50 MG TABLET PO SCH ×2 (09:24→20:40)
[2020-04-30] MEDS: MULTIVITAMINS 1 CAP CAPSULE PO SCH (09:24)
[2020-04-30] MEDS: ASPIRIN 81 MG TABLET.DR PO SCH (09:24)
[2020-04-30] MEDS: NYSTATIN 15 APPL BTL TP SCH ×2 (09:24→20:40)
[2020-04-30] MEDS: OXYBUTYNIN CHLORIDE 5 MG TABLET PO SCH (09:24)
[2020-04-30] MEDS: 0.5 NORMAL SALINE 1,000 ML IV PRN (16:11)
[2020-04-30] MEDS: TAMSULOSIN HCL 0.4 MG CAP.SR.24H PO SCH (17:24)
[2020-04-30] MEDS: SIMVASTATIN 20 MG TABLET PO SCH (20:41)
[2020-04-30] MEDS ORDERED: INSULIN GLARGINE,HUM.REC.ANLOG 100 UNITS/ML VIAL SC SCH (21:00)
--- NOTE | 2020-04-30 23:05 | PN ---
Subjective - Date and Time Seen Date: 04/30/20 Time: 12:30 Subjective Narrative: Trever has no concerns. Nursing reports he has had good urine output today. No fever, chills, nausea, or vomiting. Objective - Vitals Vitals: Last Vital Signs Temp 37.2 C 04/30/20 21:59 Pulse 104 H 04/30/20 21:59 Resp 24 H 04/30/20 21:59 BP 138/63 04/30/20 21:59 Pulse Ox 98 04/30/20 21:59 - Abnormal Lab Findings Abnormal Lab Findings: Abnormal Lab Results 04/30/20 04/30/20 Range/Units 08:35 08:35 WBC 15.7 H (4.0-10.5) K/mm3 RBC 4.07 L (4.7-6.0) M/mm3 Hgb 12.4 L (13.5-18.0) gm/dL Hct 38.1 L (42.0-52.0) % Immature Gran # (Auto) 0.07 H (0.000-0.0310) K/mm3 Neutrophils % 80.2 H (42-75.0) % Lymphocytes % 12.0 L (20-51) % Neutrophils # 12.6 H (1.3-6.0) K/mm3 Monocytes # 1.1 H (0.0-1.0) k/mm3 Sodium 152 H (132-142) mmol/L Plasma Sodium 152 H (130-142) mmol/L Chloride 117 H (97-106) mmol/L Carbon Dioxide 20.3 L (24-32.6) mmol/L Anion Gap 18.2 H (6.8-13.8) mmol/L BUN 57 H (6-23) mg/dL Creatinine 2.18 H D (0.4-1.4) mg/dL Est GFR (Non-Af Amer) 31 L D (60-130) mL/min BUN/Creatinine Ratio 26.1 H (9.0-21.6) Random Glucose 121 H D (70-110) mg/dL AST 81 H (0-48) U/L Albumin 2.3 L (3.4-5.0) gm/dl - Exam Constitutional: Present: Alert, Cooperative, No distress Respiratory: Present: lungs clear, normal breath sounds, no respiratory distress Cardiovascular/Chest: Present: irregularly irregular Abdomen: Present: Normal bowel sounds, soft, nontender Cauti Physician Documentation - Urinary Catheter Management Urethral (Carney) Date of Insertion: 04/29/20 Time of Insertion: 11:45 Assessment/Plan Plan Narrative: Renal function is improved but not at baseline. Continue fluids. Sodium is a little high will change fluids to half NS. Consulted PT will look into SNF vs home health with PT at discharge. - Problems/Diagnosis (1) WIN (acute kidney injury) Problem: Acute (2) Moderate dehydration Problem: Acute (3) Hyperglycemia Problem: Acute (4) Metabolic encephalopathy Problem: Acute (5) Insulin dependent type 2 diabetes mellitus Problem: Chronic
[2020-05-01] MEDS: 0.5 NORMAL SALINE 1,000 ML IV PRN ×2 (02:17→12:20)
[2020-05-01 06:52] LABS: Albumin * 2.1 gm/dl (3.4-5.0); Anion Gap 15.7 mmol/L (6.8-13.8); BUN/Creatinine Ratio 21.3 (9.0-21.6); Bilirubin, Total 0.8 mg/dL (0.0-1.1); Ca. Corrected For Albumin 9.4 mg/dL (8.4-10.2); Calcium * 8.2 mg/dL (7.9-10.9); Carbon Dioxide 21.6 mmol/L (24-32.6); Potassium 3.3 mmol/L (3.4-4.6); Total Protein 6.6 gm/dL (6.2-8.2)
[2020-05-01] MEDS ORDERED: POTASSIUM CHLORIDE 20 MEQ TABLET.SA PO ONE (08:04)
[2020-05-01] MEDS: INSULIN LISPRO 100 UNITS/ML VIAL SC SCH ×2 (08:57→11:57)
[2020-05-01] MEDS: NYSTATIN 15 APPL BTL TP SCH (08:58)
[2020-05-01] MEDS: BRINZOLAMIDE 100 DROP BTL OP SCH (08:58)
[2020-05-01] MEDS: METOPROLOL TARTRATE 50 MG TABLET PO SCH (08:58)
[2020-05-01] MEDS: OXYBUTYNIN CHLORIDE 5 MG TABLET PO SCH (08:58)
[2020-05-01] MEDS: GLIMEPIRIDE 4 MG TABLET PO SCH (08:59)
[2020-05-01] MEDS: MULTIVITAMINS 1 CAP CAPSULE PO SCH (08:59)
[2020-05-01] MEDS: ASPIRIN 81 MG TABLET.DR PO SCH (08:59)
--- NOTE | 2020-05-01 11:53 | DS ---
(1) WIN (acute kidney injury) Problem: Resolved (2) Moderate dehydration Problem: Resolved (3) Hyperglycemia Problem: Acute (4) Metabolic encephalopathy Problem: Resolved (5) Insulin dependent type 2 diabetes mellitus Problem: Chronic (6) Weakness Problem: Acute Date of Discharge:: 05/01/20 Hospital Course: Trever is an 84 yo male admitted for acute kidney injury secondary to dehydration from poor oral intake and uncontrolled diabetes mellitus type 2 (insulin dependent). It also appears that he has BPH which may have had an obstructive component to his acute kidney injury. He had a cantor placed for accurate output. This was placed with noted resistance and returned 1100ml of urine. His creatinine improved from 3.2 to 1.9 with fluids and cantor placement. Cantor was removed and he was placed on flomax for BPH. His GFR is near his baseline and he was encouraged to continue hydration and control of his sugars. His sugars appear controlled on lantus which was adjusted a little to 52 units once day. On this his sugars were well controlled and I suspect at home that he forgets to take his insulin as his glucose was 600 when he was admitted. He was started on metoprolol for sinus tachycardia and hypertension that did not improve with IV fluids. He will follow up in regards to his urination with a repeat CMP for kidney function. He agrees to go home with home health. He had a face to face evaluation today. He is homebound as it is physically taxing for him to leave the home. He needs nursing to monitor his urine function and blood glucose as well as his ADLs, especially nutritional intake. He needs PT with home health to work on strengthening. Procedures Performed: none Results and Findings: Pending Mircobiology Results 04/28/20 10:40 Blood Blood Culture - Preliminary NO GROWTH AFTER 48 HOURS 04/28/20 09:55 Blood Blood Culture - Preliminary NO GROWTH AFTER 48 HOURS Lab Pending Results 04/28/20 09:55: Sodium 142, Plasma Sodium 150 H, Potassium 4.5 D, Chloride 107 H, Carbon Dioxide 16.5 L, Anion Gap 23.0 H, BUN 88 H D, Creatinine 3.20 H D, Est GFR (Non-Af Amer) 20 L D, BUN/Creatinine Ratio 27.5 H, Random Glucose 601 H, Calcium 10.1, Calcium Adj for Albumin 10.5 H, Total Bilirubin 0.9, AST 19, ALT 18 L, Alkaline Phosphatase 80, Creatine Kinase 282 H, Troponin I 0.059, Total Protein 8.6 H, Albumin 3.1 L, Lipase 51 L, TSH 3.499, Serum Ketones Negative 04/28/20 09:55: WBC 16.6 H, RBC 4.32 L, Hgb 13.1 L, Hct 39.6 L, MCV 91.7, MCH 30.3, MCHC 33.1, RDW 13.0, Plt Count 283, MPV 9.7, Neutrophils % (Manual) 91 H, Lymphocytes % (Manual) 5 L, Monocytes % (Manual) 4, Neutrophils # (Manual) 15.1 H, Lymphocytes # (Manual) 0.8 L, Monocytes # (Manual) 0.7, Platelet Estimate Normal, RBC Morphology Normal 04/28/20 09:55: Lactic Acid, Venous 2.7 H* 04/28/20 10:03: Influenza Type A Ag Negative, Influenza Type B Ag Negative, SARS-CoV-2 (PCR) Not detected 04/28/20 10:36: Ur Random Creatinine 36.3 L, Ur Random Sodium 16 L 04/28/20 10:36: Urine Color Yellow, Urine Appearance Slightly cloudy, Urine pH 5.5, Ur Specific [place] 1.010, Urine Protein 30 H, Urine Glucose (UA) >=1000 H, Urine Ketones Negative, Urine Blood 50 H, Urine Nitrate Negative, Urine Bili mcmahan Negative, Urine Urobilinogen Normal, Ur Leukocyte Esterase Negative, Urine RBC 0-5, Urine WBC 0-5, Ur Epithelial Cells None seen, Amorphous Sediment Moderate - 2+ H, Urine Bacteria Trace, Urine Culture Comments Culture to follow 04/28/20 12:42: Lactic Acid, Venous 1.8 04/29/20 06:20: Sodium 150 H, Plasma Sodium 152 H, Potassium 3.9, Chloride 114 H, Carbon Dioxide 23.5 L, Anion Gap 16.4 H, BUN 76 H, Creatinine 2.67 H D, Est GFR (Non-Af Amer) 24 L, BUN/Creatinine Ratio 28.5 H, Random Glucose 218 H D, Calcium 9.1, Calcium Adj for Albumin 9.7, Total Bilirubin 0.7, AST 83 H, ALT 37, Alkaline Phosphatase 76, Total Protein 8.0, Albumin 2.8 L 04/30/20 08:35: WBC 15.7 H, RBC 4.07 L, Hgb 12.4 L, Hct 38.1 L, MCV 93.6, MCH 30.5, MCHC 32.5, RDW 13.5, Plt Count 223, MPV 9.3, Immature Gran % (Auto) 0.40, Immature Gran # (Auto) 0.07 H, Neutrophils % 80.2 H, Lymphocytes % 12.0 L, Monocytes % 7.1, Eosinophils % 0.2, Basophils % 0.1, Nucleated RBC % 0.0, Neutrophils # 12.6 H, Lymphocytes # 1.88, Monocytes # 1.1 H, Eosinophils # 0.0, Absolute Basophils 0.0 04/30/20 08:35: Sodium 152 H, Plasma Sodium 152 H, Potassium 3.5, Chloride 117 H, Carbon Dioxide 20.3 L, Anion Gap 18.2 H, BUN 57 H, Creatinine 2.18 H D, Est GFR (Non-Af Amer) 31 L D, BUN/Creatinine Ratio 26.1 H, Random Glucose 121 H D, Calcium 8.5, Calcium Adj for Albumin 9.5, Total Bilirubin 0.8, AST 81 H, ALT 52, Alkaline Phosphatase 77, Total Protein 7.1, Albumin 2.3 L 05/01/20 06:10: Sodium 150 H, Plasma Sodium 149 H, Potassium 3.3 L, Chloride 116 H, Carbon Dioxide 21.6 L, Anion Gap 15.7 H, BUN 42 H, Creatinine 1.97 H, Est GFR (Non-Af Amer) 35 L, BUN/Creatinine Ratio 21.3, Random Glucose 66 L D, Calcium 8.2, Calcium Adj for Albumin 9.4, Total Bilirubin 0.8, AST 80 H, ALT 67, Alkaline Phosphatase 90, Total Protein 6.6, Albumin 2.1 L Discharge Location: Home Disposition: Home Health Service Home Health Agency: [facility] Home Health Condition: Fair Face to Face Encounter completed per CMS Guidelines: Yes Discharge Activity: Activity as tolerated Discharge Diet: Consistent carbs Referrals: Jayce Gross DO [Primary Care Provider] - One Week () Problem Oriented Discharge Instructions to Patient/Family: Acute Kidney Injury, Adult Additional Patient Instructions (free text): [facility] Home Health Nursing and PT Prescriptions (Any new or edited meds): Tamsulosin HCl [Flomax] 0.4 mg PO DAILY@1800 #90 cap.sr.24h Transmission Status: Received by [facility] Insulin Glargine,Hum.rec.anlog [Lantus] 52 units SC HS #5 vial Transmission Status: Received by [facility] Metoprolol Tartrate [Lopressor] 50 mg PO BID #180 tab Transmission Status: Received by [facility] Complete Home Medications List: Complete Home Medication List: Glimepiride 8 mg PO DAILY 01/04/20 Aspirin [Aspirin EC] 81 mg PO DAILY 01/16/20 Blood Sugar Diagnostic [Accu-Chek Guide Test Strip] 1 ea MC BID 01/16/20 Multivitamin 1 ea PO DAILY 01/16/20 flash glucose scanning reader See Rx Instructions .ROUTE .MEDSUPPLY #1 ea metformin 1,000 mg tablet 1,000 mg PO BID #180 tab 01/20/20 oxybutynin chloride 5 mg tablet 5 mg PO DAILY #90 tab 01/20/20 flash glucose sensor See Rx Instructions .ROUTE .MEDSUPPLY #1 ea 04/21/20 Brinzolamide [Azopt] 1 drp OP BID 04/28/20 Simvastatin 20 mg PO HS 04/28/20 Insulin Glargine,Hum.rec.anlog [Lantus] 52 units SC HS #5 vial 05/01/20 Metoprolol Tartrate [Lopressor] 50 mg PO BID #180 tab 05/01/20 Tamsulosin HCl [Flomax] 0.4 mg PO DAILY@1800 #90 cap.sr.24h 05/01/20
[2020-05-01 16:18] VITALS: BP 148/62
== END 2020-05-01 16:45 | disposition home health service (06) | DRG 682 ==
LOC: MS 09:20 → ER 09:20 → MS 13:00
PROVIDERS: ADMIT Family Medicine; ATTEND Family Medicine

== ENCOUNTER 2020-05-05 19:50 | Inpatient (IN) ==
--- NOTE | 2020-05-05 20:13 | ERNOTE ---
Medical Problem HPI - General Time Seen by Provider: 05/05/20 20:04 Source: patient Exam Limitations: dementia - Immun/Allergies/Home Medications Immunizations: IMMUNIZATION HX Immunizations Up to Date Yes History of Influenza Vaccine Yes Hx Pneumococcal Vaccination No Allergies/Adverse Reactions: Allergies Penicillins Adverse Reaction (Mild, Verified 05/05/20 20:07) "DEATHLY ILL" pioglitazone HCl [From Actos] Adverse Reaction (Mild, Verified 05/05/20 20:07) "ZOMBIE LIKE" Home Medications: HOME MEDICATIONS Glimepiride 8 mg PO DAILY 01/04/20 [Last Taken Unknown] Aspirin [Aspirin EC] 81 mg PO DAILY 01/16/20 [Last Taken Unknown] Blood Sugar Diagnostic [Accu-Chek Guide Test Strip] 1 ea MC BID 01/16/20 [Last Taken Unknown] Multivitamin 1 ea PO DAILY 01/16/20 [Last Taken Unknown] flash glucose scanning reader See Rx Instructions .ROUTE .MEDSUPPLY #1 ea 01/20/20 [Last Taken Unknown] metformin 1,000 mg tablet 1,000 mg PO BID #180 tab 01/20/20 [Last Taken Unknown] oxybutynin chloride 5 mg tablet 5 mg PO DAILY #90 tab 01/20/20 [Last Taken Unknown] Brinzolamide [Azopt] 1 drp OP BID 04/28/20 [Last Taken Unknown] Simvastatin 20 mg PO HS 04/28/20 [Last Taken Unknown] Insulin Glargine,Hum.rec.anlog [Lantus] 52 units SC HS #5 vial 05/01/20 [Last Taken Unknown] Metoprolol Tartrate [Lopressor] 50 mg PO BID #180 tab 05/01/20 [Last Taken Unknown] Tamsulosin HCl [Flomax] 0.4 mg PO DAILY@1800 #90 cap.sr.24h 05/01/20 [Last Taken Unknown] flash glucose sensor See Rx Instructions .ROUTE .MEDSUPPLY #1 ea 05/04/20 [Last Taken Unknown] - History of Present History Narrative: Patient states that he just "feels terrible". He cannot further explain that except that he just feels weak. He denies any pain. He denies other symptoms. He was admitted here less than a week ago for hyperglycemia and hypernatremia Timing: getting worse Severity: moderate Modifying Factors - (Worsens): Present: movement Review of Systems - Review of Systems Constitutional: Present: fatigue. Absent: recent illness, fever, chills EYE: Absent: vision changes ENT: Absent: nose congestion, nasal drainage Respiratory: Absent: shortness of breath, cough Cardiology: Absent: chest pain, edema Gastrointestinal/Abdominal: Absent: nausea, vomiting, abdominal pain Genitourinary: Absent: frequency, dysuria Musculoskeletal: Absent: back pain, neck pain Skin: Absent: rash, change in color Neurological: Absent: numbness, tingling Endocrine: Absent: excessive sweating Medical History (Last Reviewed 05/05/20 @ 20:10 by Saul Copeland DO) Weakness (Acute) Onset Date: 01/04/20 Urinary tract infection (Acute) Onset Date: 01/16/20 Hyperosmolar hyperglycemic state (HHS) (Acute) Onset Date: 01/16/20 Infectious encephalopathy (Acute) Onset Date: 01/17/20 Atrial fibrillation (Chronic) Onset Date: 01/17/20 Diabetes (Chronic) DKA (diabetic ketoacidoses) (Resolved) WIN (acute kidney injury) (Resolved) Hyperglycemia due to diabetes mellitus Onset Date: 01/16/20 Irregular heart beat Diabetes Hyperlipidemia Acute alteration in mental status Onset Date: 01/04/20 Colon cancer Onset Date: ~2006 Dehydration Onset Date: 01/06/20 Dermatitis, unspecified Onset Date: 09/18/18 Dr. Nicole Patton. [facility]. Gastroenteritis Hyperglycemia Onset Date: 01/04/20 Hyperglycemia without ketosis Onset Date: 01/06/20 Hypernatremia Onset Date: 01/16/20 Hypoglycemia Lactic acidosis Onset Date: 01/16/20 Lactic acidosis due to diabetes mellitus Onset Date: 01/04/20 Leukocytosis Onset Date: 01/04/20 Surgical History: Surgical History (Last Reviewed 05/05/20 @ 20:10 by Saul Copeland DO) History of colon resection History of right knee surgery History of total left knee replacement Family History: Family History (Last Reviewed 05/05/20 @ 20:10 by Saul Copeland DO) Other No pertinent family history Social History: (Last Reviewed 05/05/20 @ 20:10 by Saul Copeland DO) Social History: adopted: No Marital status: household members: spouse number of children: 1 current occupational status: retired 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, 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 Highest level of school completed/degree received: high school graduate Service: Yes branch: [employer] status: retired Tobacco: Smoking Status: Former smoker Alcohol: alcohol intake: former Substance Use: substance use type: does not use Dietary Habits: caffeine: No Amirah/Orthodox: special amirah needs: No Physical Exam - Physical Exam General Appearance: Present: wd/wn, alert, no apparent distress Head Exam: Present: normal inspection, no evidence of injury Eye Exam: Normal inspection: bilateral Ears, Nose, Throat: Present: normal ENT inspection, normal pharynx Neck: Present: normal inspection, nontender Respiratory: Present: no respiratory distress, normal breath sounds, no accessory muscle use, chest nontender, lungs clear Cardiovascular/Chest: Present: regular rate, rhythm, no murmur Gastrointestinal/Abdominal: Present: normal bowel sounds, nontender, nondistended, soft Male Genitals Exam: Present: erythema - Of scrotum Back Exam: Present: normal inspection, no CVA tenderness Extremity Exam: Present: normal inspection, no edema Neurological Exam: Present: alert, normal mood/affect, no motor/sensory deficits Skin Exam: Present: skin rash - Erythema on buttocks and scrotum. Localized, I do not see any signs of Teresa's gangrene Lymphatic Exam: Present: no adenopathy Progress - Results and Orders Patient's Lab Results:: I have reviewed the patient's lab results. Results and Orders: Laboratory Tests 05/05/20 05/05/20 05/05/20 20:25 20:25 20:25 WBC 33.9 H Hgb 12.9 L Hct 38.9 L Plt Count 485 H Neutrophils % (Manual) 81 H Sodium 133 Potassium 4.7 H D Carbon Dioxide 17.0 L Anion Gap 23.7 H BUN 71 H D Creatinine 3.07 H D Random Glucose 400 H Lactic Acid, Venous 4.6 H* Calcium Adj for Albumin 10.4 H Total Bilirubin 0.9 AST 20 ALT 49 Troponin I Less than 0.017 B-Natriuretic Peptide 287 Urine Color Urine Appearance Urine pH Ur Specific [place] Urine Protein Urine Glucose (UA) Urine Ketones Urine Blood Urine Nitrate Ur Leukocyte Esterase Urine RBC Urine WBC Urine Bacteria Urine Culture Comments 05/05/20 21:48 WBC Hgb Hct Plt Count Neutrophils % (Manual) Sodium Potassium Carbon Dioxide Anion Gap BUN Creatinine Random Glucose Lactic Acid, Venous Calcium Adj for Albumin Total Bilirubin AST ALT Troponin I B-Natriuretic Peptide Urine Color Yellow Urine Appearance Cloudy Urine pH >=9 Ur Specific [place] 1.010 Urine Protein 100 H Urine Glucose (UA) 250 H Urine Ketones Negative Urine Blood 250 H Urine Nitrate Negative Ur Leukocyte Esterase 100 H Urine RBC >50 H Urine WBC 25-50 H Urine Bacteria 4+ H Urine Culture Comments Culture to follow - Vital Signs Patient's Vital Signs:: I have reviewed the patient's vital signs. Vital Signs: Vital Signs 05/05/20 19:57 Temperature 37.0 C Pulse Rate 107 H Respiratory Rate 29 H Blood Pressure 110/67 O2 Sat by Pulse Oximetry 94 - EKG EKG #1 EKG: atrial fibrillation, nonspecific ST T wave changes EKG read: Interp. by me - X-Ray X-Ray #1 X-Ray: chest Interpretation: Interp. by me X-ray Comments: No infiltrate or effusion. Cardiac silhouette appears normal. Bony elements intact. - Progress/Reassessment Progress Note-Subjective: 05/05/20 22:[address] Shepherd he agrees with admission and sepsis protocols. Patient has been given a gram of Rocephin IV, he is in the midst of his sepsis bolus, he has not been hypotensive. Departure Clinical Impression: Pyelonephritis Sepsis Qualifiers: Sepsis type: sepsis due to unspecified organism Sepsis acute organ dysfunction status: with acute organ dysfunction Severe sepsis acute organ dysfunction type: critical illness myopathy Severe sepsis shock status: without septic shock Qualified Code(s): A41.9 - Sepsis, unspecified organism Hyperglycemia due to type 2 diabetes mellitus Qualifiers: Diabetes mellitus center consultant insulin use: with snf use Qualified Code(s): E11.65 - Type 2 diabetes mellitus with hyperglycemia Cellulitis Qualifiers: Site of cellulitis: buttock Qualified Code(s): L03.317 - Cellulitis of buttock - Departure Disposition: Still a patient Condition: Serious Sepsis Reassessment Note Time:: 22:55 Narrative: Last Vital Signs Temp 37.6 C 05/05/20 22:04 Pulse 119 H 05/05/20 22:04 Resp 24 H 05/05/20 22:04 BP 117/70 05/05/20 22:04 Pulse Ox 100 05/05/20 22:04 Vitals reviewed: Yes Heart Sounds: Irregular Breath Sounds: Clear Peripheral Pulse: Radial Peripheral Pulse Strength: Normal Additional Peripheral Pulse: Pedal Additional Peripheral Pulse Strength: Weak Capillary Refill: < 3 seconds Skin Color/Condition: Cool
[2020-05-05 20:31] LABS: Hematocrit 38.9 % (42.0-52.0); Hemoglobin 12.9 gm/dL (13.5-18.0); Mean Cell Volume 93.7 fl (78-100); Mean Corpuscular Hemoglobin 31.1 pg (27-31); Mean Corpuscular Hgb Conc 33.2 g/dl (32-36); Mean Platelet Volume 9.6 fl (8-11.3); Platelet Count 485 K/mm3 (150-450); Red Blood Count 4.15 M/mm3 (4.7-6.0); Red Cell Distribution Width 12.9 % (11.5-14.0); White Blood Count 33.9 K/mm3 (4.0-10.5)
[2020-05-05 20:47] LABS: Total Cells Counted 100
[2020-05-05 20:49] LABS: Troponin I Less than 0.017 ng/mL (0.00-0.10)
[2020-05-05 20:51] LABS: ALT 49 U/L (19-67); AST 20 U/L (0-48); Albumin * 2.2 gm/dl (3.4-5.0); Alkaline Phosphatase * 163 U/L (50-170); Anion Gap 23.7 mmol/L (6.8-13.8); BNP * 287 pg/mL (5-650); BUN/Creatinine Ratio 23.1 (9.0-21.6); Bilirubin, Total 0.9 mg/dL (0.0-1.1); Blood Urea Nitrogen 71 mg/dL (6-23); Ca. Corrected For Albumin 10.4 mg/dL (8.4-10.2); Calcium * 9.3 mg/dL (7.9-10.9); Chloride 97 mmol/L (97-106); Glucose * 400 mg/dL (70-110); Potassium 4.7 mmol/L (3.4-4.6); Sodium 133 mmol/L (132-142); Total Protein 8.4 gm/dL (6.2-8.2)
[2020-05-05] MEDS ORDERED: INSULIN LISPRO 100 UNITS/ML VIAL SC ONE ×2 (21:00→22:37)
[2020-05-05 21:03] LABS: Band 8 % (0-2.0); Lymphocyte 5 % (20-51); Monocyte 6 % (0-9); Neutrophil 81 % (42-75); Neutrophil # 27.5 K/mm3 (1.3-6.0)
[2020-05-05 21:05] LABS: Giant Platelets Trace; Platelet Estimate Increased (NORMAL); RBC Morphology Normal (NORMAL)
[2020-05-05] MEDS ORDERED: cefTRIAXone SODIUM 1,000 MG/100 ML BAG IV ONE (21:09)
[2020-05-05] MEDS: NORMAL SALINE 1,000 ML IV SCH ×3 (21:23→23:45)
[2020-05-05 22:11] LABS: Urine Bilirubin Negative (NEGATIVE); Urine Blood 250 /ul (NEGATIVE); Urine Ketone Negative (NEGATIVE); Urine Nitrite Negative (NEGATIVE); Urine Protein 100 mg/dL (NEGATIVE); Urine Urobilinogen Normal (NORMAL)
[2020-05-05 22:19] LABS: Urine Color Yellow; Urine pH >=9 pH (5.0-7.0)
[2020-05-05 22:20] LABS: Urine Appearance Cloudy (CLEAR); Urine Bacteria 4+; Urine RBC >50 /hpf (0-5); Urine WBC 25-50 /hpf (0-5)
[2020-05-05] MEDS ORDERED: ACETAMINOPHEN 325 MG TABLET PO ONE (22:59)
[2020-05-06] MEDS: NORMAL SALINE 1,000 ML IV PRN ×4 (00:25→23:02)
--- NOTE | 2020-05-06 10:32 | HP ---
Chief Complaint - Chief Complaint Date of Service: 05/06/20 Time of Service: 08:45 Chief Complaint: weakness, incontinence History of Present Illness: Trever is an 84 yo male with insulin dependent Diabetes Mellitus Type 2, who was brought to the ER by EMS due to weakness and inability for the patient or his family to care for him. He was admitted to the hospital last week due to acute renal failure and hyperglycemia that had resolved with IV fluids and insulin. We had discussed intermediate for SNF with him and the family but he had declined. He was able to ambulate on his own and agreed to home health with therapies. At home he was placed in a recliner, where he was naked from the waist down, and not moved for three days. He urinated and soiled himself in the chair. He reportedly drank milk and was given insulin once. 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 They were reluctant to have him admitted to the intermediate but were also admittedly unable to care for him at home. In the ER he was noted to have erythema around his buttock, scrotum, and penis. There was difficulty retracting the foreskin, and there was stringy clear discharge from the penis. Urine was collected from cantor and was suspicious of UTI. He had previously had a urine culture from his prior hospitalization which was negative for growth. He was also noted to have dried feces on his skin and nails At this time he reports willing to go to a intermediate. He appears to understand that he and his family are unable to care for him at home. He denies pain, fever, chills, nausea, or vomiting. He admits that his groin area is sore with movement. He denies shortness of breath or chest pain. He reports feeling weak and has difficulty moving in bed. Medical History (Last Reviewed 05/06/20 @ 00:03 by Mirna Sands RN) Weakness (Acute) Onset Date: 01/04/20 Urinary tract infection (Acute) Onset Date: 01/16/20 Hyperosmolar hyperglycemic state (HHS) (Acute) Onset Date: 01/16/20 Infectious encephalopathy (Acute) Onset Date: 01/17/20 Atrial fibrillation (Chronic) Onset Date: 01/17/20 Diabetes (Chronic) DKA (diabetic ketoacidoses) (Resolved) WIN (acute kidney injury) (Resolved) Hyperglycemia due to diabetes mellitus Onset Date: 01/16/20 Irregular heart beat Diabetes Hyperlipidemia Acute alteration in mental status Onset Date: 01/04/20 Colon cancer Onset Date: Dehydration Onset Date: 01/06/20 Dermatitis, unspecified Onset Date: 09/18/18 Dr. Nicole Patton. [facility]. Gastroenteritis Hyperglycemia Onset Date: 01/04/20 Hyperglycemia without ketosis Onset Date: 01/06/20 Hypernatremia Onset Date: 01/16/20 Hypoglycemia Lactic acidosis Onset Date: 01/16/20 Lactic acidosis due to diabetes mellitus Onset Date: 01/04/20 Leukocytosis Onset Date: 01/04/20 Surgical History: Surgical History (Last Reviewed 05/06/20 @ 00:03 by Mirna Sands RN) History of colon resection History of right knee surgery History of total left knee replacement Family History: Family History (Last Reviewed 05/05/20 @ 20:10 by Saul Copeland DO) Other No pertinent family history Social History: (Last Reviewed 05/06/20 @ 00:03 by Mirna Sands RN) Social History: adopted: No Marital status: household members: spouse number of children: 1 current occupational status: retired 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 Absent: Chills, Fever EENTM: Present: No Symptoms Reported Respiratory: Absent: Cough, Shortness of Breath Cardiac: Absent: Chest Pain, Edema, Palpitations Abdominal: Absent: Nausea, Vomiting Genitourinary: Present: Incontinent. Absent: Burning, Frequency Musculoskeletal: Present: No Symptoms Reported Neurological: Present: Weakness. Absent: Headache Skin: Absent: Lesions, Bruising Immunizations: IMMUNIZATION HX Immunizations Up to Date Yes History of Influenza Vaccine Yes Hx Pneumococcal Vaccination No Allergies/Adverse Reactions: Allergies Allergy/AdvReac Type Severity Reaction Status Date / Time Penicillins AdvReac Mild "DEATHLY Verified 05/05/20 20:07 ILL" pioglitazone HCl [From Actos] AdvReac Mild "ZOMBIE Verified 05/05/20 20:07 LIKE" Home Medications: HOME MEDICATIONS Glimepiride 8 mg PO DAILY 01/04/20 [Last Taken Unknown] Aspirin [Aspirin EC] 81 mg PO DAILY 01/16/20 [Last Taken Unknown] Blood Sugar Diagnostic [Accu-Chek Guide Test Strip] 1 ea MC BID 01/16/20 [Last Taken Unknown] Multivitamin 1 ea PO DAILY 01/16/20 [Last Taken Unknown] flash glucose scanning reader See Rx Instructions .ROUTE .MEDSUPPLY #1 ea 01/20/20 [Last Taken Unknown] metformin 1,000 mg tablet 1,000 mg PO BID #180 tab 01/20/20 [Last Taken Unknown] oxybutynin chloride 5 mg tablet 5 mg PO DAILY #90 tab 01/20/20 [Last Taken Unknown] Brinzolamide [Azopt] 1 drp OP BID 04/28/20 [Last Taken Unknown] Simvastatin 20 mg PO HS 04/28/20 [Last Taken Unknown] Insulin Glargine,Hum.rec.anlog [Lantus] 52 units SC HS #5 vial 05/01/20 [Last Taken Unknown] Metoprolol Tartrate [Lopressor] 50 mg PO BID #180 tab 05/01/20 [Last Taken Unknown] Tamsulosin HCl [Flomax] 0.4 mg PO DAILY@1800 #90 cap.sr.24h 05/01/20 [Last Taken Unknown] flash glucose sensor See Rx Instructions .ROUTE .MEDSUPPLY #1 ea 05/04/20 [Last Taken Unknown] Exam - Exam Vital Signs: Vital Signs - Last Taken Temp 36.4 C 05/06/20 07:32 Pulse 108 H 05/06/20 07:32 Resp 18 05/06/20 07:32 BP 108/47 05/06/20 07:32 Pulse Ox 99 05/06/20 07:32 Constitutional: Present: Alert, Oriented x3, Cooperative ENT Exam: Present: hearing grossly normal Eye Exam: bilateral eye: normal inspection Respiratory: Present: lungs clear, normal breath sounds, no respiratory distress Cardiovascular/Chest: Present: no murmur, tachycardia, irregularly irregular Peripheral Pulses: radial (R): 2+, radial (L): 2+ Abdomen: Present: Normal bowel sounds, soft, nontender, nondistended Extremity: Absent: lower extremity edema Skin Exam: Present: other - Mild erythema of scrotum, cantor catheter in place. Scabs on legs. No wounds present Lymphatic: Present: no adenopathy Neurologic: Present: alert, normal mood/affect, oriented x 3, motor weakness - 3/5 bilateral upper extremities and lower extremities Eye contact: Present: cooperative, good eye contact, normal speech Thoughts: Present: normal thought pattern, no apparent hallucination Diagnostic Studies: Abnormal Lab Results 05/05/20 05/05/20 05/05/20 Range/Units 20:25 20:25 20:25 WBC 33.9 H (4.0-10.5) K/mm3 RBC 4.15 L (4.7-6.0) M/mm3 Hgb 12.9 L (13.5-18.0) gm/dL Hct 38.9 L (42.0-52.0) % MCH 31.1 H (27-31) pg Plt Count 485 H (150-450) K/mm3 Neutrophils % (Manual) 81 H (42-75) % Band Neuts % (Manual) 8 H (0-2.0) % Lymphocytes % (Manual) 5 L (20-51) % Neutrophils # (Manual) 27.5 H (1.3-6.0) K/mm3 Monocytes # (Manual) 2.0 H (0.0-1.0) k/mm3 Nucleated RBCs 4.0 H (0-1) % Platelet Estimate Increased H (NORMAL) Potassium 4.7 H D (3.4-4.6) mmol/L Carbon Dioxide 17.0 L (24-32.6) mmol/L Anion Gap 23.7 H (6.8-13.8) mmol/L BUN 71 H D (6-23) mg/dL Creatinine 3.07 H D (0.4-1.4) mg/dL Est GFR (Non-Af Amer) 21 L D (60-130) mL/min BUN/Creatinine Ratio 23.1 H (9.0-21.6) Random Glucose 400 H (70-110) mg/dL Lactic Acid, Venous 4.6 H* (0.4-2.0) mmol/L Calcium Adj for Albumin 10.4 H (8.4-10.2) mg/dL Total Protein 8.4 H (6.2-8.2) gm/dL Albumin 2.2 L (3.4-5.0) gm/dl Urine Protein (NEGATIVE) mg/dL Urine Glucose (UA) (NEGATIVE) mg/dL Urine Blood (NEGATIVE) /ul Ur Leukocyte Esterase (NEGATIVE) /ul Urine RBC (0-5) /hpf Urine WBC (0-5) /hpf Urine Bacteria (NONE) 05/05/20 05/05/20 Range/Units 21:48 23:13 WBC (4.0-10.5) K/mm3 RBC (4.7-6.0) M/mm3 Hgb (13.5-18.0) gm/dL Hct (42.0-52.0) % MCH (27-31) pg Plt Count (150-450) K/mm3 Neutrophils % (Manual) (42-75) % Band Neuts % (Manual) (0-2.0) % Lymphocytes % (Manual) (20-51) % Neutrophils # (Manual) (1.3-6.0) K/mm3 Monocytes # (Manual) (0.0-1.0) k/mm3 Nucleated RBCs (0-1) % Platelet Estimate (NORMAL) Potassium (3.4-4.6) mmol/L Carbon Dioxide (24-32.6) mmol/L Anion Gap (6.8-13.8) mmol/L BUN (6-23) mg/dL Creatinine (0.4-1.4) mg/dL Est GFR (Non-Af Amer) (60-130) mL/min BUN/Creatinine Ratio (9.0-21.6) Random Glucose (70-110) mg/dL Lactic Acid, Venous 4.8 H* (0.4-2.0) mmol/L Calcium Adj for Albumin (8.4-10.2) mg/dL Total Protein (6.2-8.2) gm/dL Albumin (3.4-5.0) gm/dl Urine Protein 100 H (NEGATIVE) mg/dL Urine Glucose (UA) 250 H (NEGATIVE) mg/dL Urine Blood 250 H (NEGATIVE) /ul Ur Leukocyte Esterase 100 H (NEGATIVE) /ul Urine RBC >50 H (0-5) /hpf Urine WBC 25-50 H (0-5) /hpf Urine Bacteria 4+ H (NONE) Microbiology 05/05/20 21:48 Urine Culture - Preliminary Urine,Clean Catch Ruling Out Pathogen Laboratory Results WBC 33.9 K/mm3 (4.0-10.5) H 05/05/20 20:25 RBC 4.15 M/mm3 (4.7-6.0) L 05/05/20 20:25 Hgb 12.9 gm/dL (13.5-18.0) L 05/05/20 20:25 Hct 38.9 % (42.0-52.0) L 05/05/20 20:25 MCV 93.7 fl (78-100) 05/05/20 20:25 MCH 31.1 pg (27-31) H 05/05/20 20:25 MCHC 33.2 g/dl (32-36) 05/05/20 20:25 RDW 12.9 % (11.5-14.0) 05/05/20 20:25 Plt Count 485 K/mm3 (150-450) H 05/05/20 20:25 MPV 9.6 fl (8-11.3) 05/05/20 20:25 Neutrophils % (Manual) 81 % (42-75) H 05/05/20 20:25 Band Neuts % (Manual) 8 % (0-2.0) H 05/05/20 20:25 Lymphocytes % (Manual) 5 % (20-51) L 05/05/20 20:25 Monocytes % (Manual) 6 % (0-9) 05/05/20 20:25 Neutrophils # (Manual) 27.5 K/mm3 (1.3-6.0) H 05/05/20 20:25 Lymphocytes # (Manual) 1.7 k/mm3 (1.5-3.5) 05/05/20 20:25 Monocytes # (Manual) 2.0 k/mm3 (0.0-1.0) H 05/05/20 20:25 Nucleated RBCs 4.0 % (0-1) H 05/05/20 20:25 Platelet Estimate Increased (NORMAL) H 05/05/20 20:25 Giant Platelets Trace 05/05/20 20:25 RBC Morphology Normal (NORMAL) 05/05/20 20:25 Sodium 133 mmol/L (132-142) 05/05/20 20:25 Plasma Sodium 138 mmol/L (130-142) 05/05/20 20:25 Potassium 4.7 mmol/L (3.4-4.6) H D 05/05/20 20:25 Chloride 97 mmol/L (97-106) 05/05/20 20:25 Carbon Dioxide 17.0 mmol/L (24-32.6) L 05/05/20 20:25 Anion Gap 23.7 mmol/L (6.8-13.8) H 05/05/20 20:25 BUN 71 mg/dL (6-23) H D 05/05/20 20:25 Creatinine 3.07 mg/dL (0.4-1.4) H D 05/05/20 20:25 Est GFR (Non-Af Amer) 21 mL/min (60-130) L D 05/05/20 20:25 BUN/Creatinine Ratio 23.1 (9.0-21.6) H 05/05/20 20:25 Random Glucose 400 mg/dL (70-110) H 05/05/20 20:25 Lactic Acid, Venous 4.8 mmol/L (0.4-2.0) H* 05/05/20 23:13 Calcium 9.3 mg/dL (7.9-10.9) 05/05/20 20:25 Calcium Adj for Albumin 10.4 mg/dL (8.4-10.2) H 05/05/20 20:25 Total Bilirubin 0.9 mg/dL (0.0-1.1) 05/05/20 20:25 AST 20 U/L (0-48) 05/05/20 20:25 ALT 49 U/L (19-67) 05/05/20 20:25 Alkaline Phosphatase 163 U/L (50-170) 05/05/20 20:25 Troponin I Less than 0.017 ng/mL (0.00-0.10) 05/05/20 20:25 B-Natriuretic Peptide 287 pg/mL (5-650) 05/05/20 20:25 Total Protein 8.4 gm/dL (6.2-8.2) H 05/05/20 20:25 Albumin 2.2 gm/dl (3.4-5.0) L 05/05/20 20:25 Urine Color Yellow 05/05/20 21:48 Urine Appearance Cloudy (CLEAR) 05/05/20 21:48 Urine pH >=9 pH (5.0-7.0) 05/05/20 21:48 Ur Specific [place] 1.010 SP.GR. (1.005-1.030) 05/05/20 21:48 Urine Protein 100 mg/dL (NEGATIVE) H 05/05/20 21:48 Urine Glucose (UA) 250 mg/dL (NEGATIVE) H 05/05/20 21:48 Urine Ketones Negative mg/dL (NEGATIVE) 05/05/20 21:48 Urine Blood 250 /ul (NEGATIVE) H 05/05/20 21:48 Urine Nitrate Negative (NEGATIVE) 05/05/20 21:48 Urine Bilirubin Negative mg/dl (NEGATIVE) 05/05/20 21:48 Urine Urobilinogen Normal EU/dl (NORMAL) 05/05/20 21:48 Ur Leukocyte Esterase 100 /ul (NEGATIVE) H 05/05/20 21:48 Urine RBC >50 /hpf (0-5) H 05/05/20 21:48 Urine WBC 25-50 /hpf (0-5) H 05/05/20 21:48 Ur Epithelial Cells None seen /hpf (0-5) 05/05/20 21:48 Urine Bacteria 4+ (NONE) H 05/05/20 21:48 Urine Culture Comments Culture to follow 05/05/20 21:48 SARS-CoV-2 (PCR) Not detected (NotDetected) 05/05/20 22:16 Assessment/Plan - Narrative Narrative: Trever is an 84 yo male with potential sepsis secondary to UTI. He had tachycardia, tachypnea, leukocytosis, acute renal failure, elevated lactate, and possible UTI all during evaluation in the ER. Blood cultures are pending. He is not getting adequate care at home. He was sitting in a recliner for three days without clothes below his waist and returned to the ER covered in dried feces after he was discharged to home three days ago clean and in good condition. At his prior hospitalization he had negative urine culture showing no UTI at that time. He has been allowed to lay around in his own urine and feces for the last few days and was not given appropriate food or fluids and has once again developed possible sepsis with acute kidney injury due to dehydration and inappropriate care. He declined intermediate placement at discharge at last hospitalization, but he no longer has that as an option as he and the family have shown noncompliance in his ability to provide care outside of a nursing facility. I will consult PT and OT to evaluate him. He will be hydrated with IV fluids to correct the dehydration that has developed once again. He will be given rocephin for treatment of UTI and possible sepsis. It was documented in the ER that he has cellulitis of his buttocks. He does not have cellulitis. He has irritated skin in his pelvic region from sitting in a chair for three days straight in his own urine and feces. He was thoroughly scrubbed and cleaned on admission. Due to possible sepsis, with UTI and acute renal failure and dehydration he meets criteria for inpatient status as it will take >2 midnights to hydrate him and treat the UTI. He will also need evaluated by therapies and then will work to get him admitted to a nursing facility. He is a very pleasant male who needs proper care in a nursing facility to prevent his recurrent hospitalizations. He has uncontrolled insulin dependent diabetes that I believe is from not taking his insulin at home. It sounds that he was given his insulin once since discharge and his glucose is once again above 300. When he is given his insulin and follows a consistent carb diet his sugars appear fairly well controlled. Last admission he was found to have multiple continuous glucose monitors attached to his body at the same time. He will be restarted on his insulin dose and glucose will be monitored. He does appear at this time to have realized that he cannot get proper care at home and is agreeable at this time to look into intermediate discharge. - Assessment/Plan (1) Sepsis Problem: Suspected Qualifiers: Sepsis type: sepsis due to unspecified organism Sepsis acute organ dysfunction status: with acute organ dysfunction Severe sepsis acute organ dysfunction type: acute renal failure Acute renal failure type: unspecified Severe sepsis shock status: without septic shock Qualified Code(s): A41.9 - Sepsis, unspecified organism; R65.20 - Severe sepsis without septic shock; N17.9 - Acute kidney failure, unspecified (2) Urinary tract infection Problem: Acute Qualifiers: Urinary tract infection type: acute cystitis (3) WIN (acute kidney injury) Problem: Acute (4) Insulin dependent type 2 diabetes mellitus Problem: Chronic (5) Atrial fibrillation Problem: Chronic Qualifiers: Atrial fibrillation type: paroxysmal Qualified Code(s): I48.0 - Paroxysmal atrial fibrillation (6) Moderate dehydration Problem: Acute
[2020-05-06] MEDS: ASPIRIN 81 MG TABLET.DR PO SCH (10:52)
[2020-05-06] MEDS: METOPROLOL TARTRATE 50 MG TABLET PO SCH ×2 (10:53→20:52)
[2020-05-06] MEDS: MULTIVITAMINS 1 CAP CAPSULE PO SCH (10:54)
[2020-05-06] MEDS: OXYBUTYNIN CHLORIDE 5 MG TABLET PO SCH (10:55)
[2020-05-06] MEDS: GLIMEPIRIDE 4 MG TABLET PO SCH (10:55)
[2020-05-06] MEDS: BRINZOLAMIDE 100 DROP BTL OP SCH ×2 (10:56→20:52)
[2020-05-06] MEDS: TAMSULOSIN HCL 0.4 MG CAP.SR.24H PO SCH (17:18)
[2020-05-06] MEDS: INSULIN LISPRO 100 UNITS/ML VIAL SC SCH (17:18)
[2020-05-06] MEDS: LATANOPROST 25 DROP BTL EACHEYE SCH (20:51)
[2020-05-06] MEDS: SIMVASTATIN 20 MG TABLET PO SCH (20:53)
[2020-05-06] MEDS: INSULIN GLARGINE,HUM.REC.ANLOG 100 UNITS/ML VIAL SC SCH (21:00)
[2020-05-07] MEDS: NORMAL SALINE 1,000 ML IV PRN ×2 (07:02→15:15)
[2020-05-07] MEDS: INSULIN LISPRO 100 UNITS/ML VIAL SC SCH ×3 (07:30→17:17)
[2020-05-07] MEDS: GLIMEPIRIDE 4 MG TABLET PO SCH (07:37)
[2020-05-07 07:48] LABS: Hematocrit 40.3 % (42.0-52.0); Mean Cell Volume 95.3 fl (78-100); Mean Corpuscular Hemoglobin 30.7 pg (27-31); Mean Corpuscular Hgb Conc 32.3 g/dl (32-36); Mean Platelet Volume 9.2 fl (8-11.3); Platelet Count 558 K/mm3 (150-450); Red Blood Count 4.23 M/mm3 (4.7-6.0); Red Cell Distribution Width 13.6 % (11.5-14.0); White Blood Count 25.5 K/mm3 (4.0-10.5)
[2020-05-07 07:49] LABS: Total Cells Counted 100
[2020-05-07 08:00] LABS: Albumin * 1.9 gm/dl (3.4-5.0); Anion Gap 20.7 mmol/L (6.8-13.8); BUN/Creatinine Ratio 22.8 (9.0-21.6); Bilirubin, Total 0.4 mg/dL (0.0-1.1); Ca. Corrected For Albumin 10.7 mg/dL (8.4-10.2); Calcium * 9.3 mg/dL (7.9-10.9); Carbon Dioxide 16.5 mmol/L (24-32.6); Potassium 4.2 mmol/L (3.4-4.6); Total Protein 8.1 gm/dL (6.2-8.2)
[2020-05-07 08:53] LABS: Band 2 % (0-2.0); Lymphocyte 6 % (20-51); Monocyte 2 % (0-9); Neutrophil 90 % (42-75)
[2020-05-07 08:56] LABS: Platelet Estimate Increased (NORMAL); RBC Morphology Normal (NORMAL)
[2020-05-07] MEDS: ASPIRIN 81 MG TABLET.DR PO SCH (09:43)
[2020-05-07] MEDS: METOPROLOL TARTRATE 50 MG TABLET PO SCH ×2 (09:43→20:20)
[2020-05-07] MEDS: BRINZOLAMIDE 100 DROP BTL OP SCH ×2 (09:44→20:17)
[2020-05-07] MEDS: OXYBUTYNIN CHLORIDE 5 MG TABLET PO SCH (09:44)
[2020-05-07] MEDS: MULTIVITAMINS 1 CAP CAPSULE PO SCH (09:44)
--- NOTE | 2020-05-07 09:50 | PN ---
Subjective - Date and Time Seen Date: 05/07/20 Time: 09:36 Subjective Narrative: Trever reports feeling a little stronger today. He is up in a chair. He ate only bites yesterday and did not eat breakfast this morning. No fever, chills, nausea, or pain. Urine culture and blood cultures x 2 are growing Proteus. Objective - Vitals Vitals: Last Vital Signs Temp 37 C 05/07/20 07:07 Pulse 100 05/07/20 02:25 Resp 20 05/07/20 02:25 BP 173/68 H 05/07/20 07:07 Pulse Ox 97 05/07/20 07:07 - Abnormal Lab Findings Abnormal Lab Findings: Abnormal Lab Results 05/07/20 05/07/20 Range/Units 07:42 07:42 WBC 25.5 H D (4.0-10.5) K/mm3 RBC 4.23 L (4.7-6.0) M/mm3 Hgb 13.0 L (13.5-18.0) gm/dL Hct 40.3 L (42.0-52.0) % Plt Count 558 H (150-450) K/mm3 Neutrophils % (Manual) 90 H (42-75) % Lymphocytes % (Manual) 6 L (20-51) % Neutrophils # (Manual) 23.0 H (1.3-6.0) K/mm3 Platelet Estimate Increased H (NORMAL) Plasma Sodium 146 H (130-142) mmol/L Chloride 109 H (97-106) mmol/L Carbon Dioxide 16.5 L (24-32.6) mmol/L Anion Gap 20.7 H (6.8-13.8) mmol/L BUN 61 H (6-23) mg/dL Creatinine 2.67 H D (0.4-1.4) mg/dL Est GFR (Non-Af Amer) 24 L (60-130) mL/min BUN/Creatinine Ratio 22.8 H (9.0-21.6) Random Glucose 332 H (70-110) mg/dL Calcium Adj for Albumin 10.7 H (8.4-10.2) mg/dL Albumin 1.9 L (3.4-5.0) gm/dl - Exam Constitutional: Present: Alert, Cooperative, Other - he did not recognize me today and is not sure where he is at or date. Oriented x 1. Absent: Oriented x3 Respiratory: Present: lungs clear, no respiratory distress Cardiovascular/Chest: Present: irregularly irregular Abdomen: Present: Normal bowel sounds, soft, nontender, nondistended Extremity: Present: no pedal edema Eye contact: Present: cooperative, good eye contact Cauti Physician Documentation - Urinary Catheter Management Urethral (Carney) Date of Insertion: 05/05/20 Time of Insertion: 21:50 Assessment/Plan Plan Narrative: Trever has Proteus Septicemia secondary to Proteus UTI. Urine culture and blood cultures x 2 are all growing Proteus. This has caused sepsis with tachycardia, leukocytosis, acute kidney injury, lactic acidosis, and infectious encephalopathy due to his change in orientation/confusion. He is on fluids and rocephin. Treatment is appropriate and improving his condition as his WBC is down to 25k from 33k. His creatinine has improved from 3.07 to 2.67. Will continue rocephin until sensitivities return. He will need to be continued on IV antibiotics until mentation improves and WBC improves closer to baseline. Will also need IV antibiotics until sensitivity indicates an oral alternative. Suspect inpatient need of 2-5 more days depending on how he continues to improve from sepsis caused by Proteus. 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
[2020-05-07] MEDS: DOCUSATE SODIUM 100 MG CAPSULE PO SCH ×2 (10:13→20:18)
[2020-05-07] MEDS: TAMSULOSIN HCL 0.4 MG CAP.SR.24H PO SCH (17:18)
[2020-05-07] MEDS: INSULIN GLARGINE,HUM.REC.ANLOG 100 UNITS/ML VIAL SC SCH (20:18)
[2020-05-07] MEDS: LATANOPROST 25 DROP BTL EACHEYE SCH (20:21)
[2020-05-07] MEDS: SIMVASTATIN 20 MG TABLET PO SCH (20:21)
[2020-05-08] MEDS: NORMAL SALINE 1,000 ML IV PRN ×3 (00:59→17:04)
[2020-05-08] MEDS: INSULIN LISPRO 100 UNITS/ML VIAL SC SCH ×3 (06:33→17:33)
[2020-05-08] MEDS: GLIMEPIRIDE 4 MG TABLET PO SCH (06:33)
[2020-05-08] MEDS: DOCUSATE SODIUM 100 MG CAPSULE PO SCH ×2 (08:07→20:45)
[2020-05-08] MEDS: BRINZOLAMIDE 100 DROP BTL OP SCH ×2 (08:07→20:45)
[2020-05-08] MEDS: OXYBUTYNIN CHLORIDE 5 MG TABLET PO SCH (08:08)
[2020-05-08] MEDS: MULTIVITAMINS 1 CAP CAPSULE PO SCH (08:08)
[2020-05-08] MEDS: METOPROLOL TARTRATE 50 MG TABLET PO SCH ×2 (08:08→20:46)
[2020-05-08] MEDS: ASPIRIN 81 MG TABLET.DR PO SCH (08:08)
[2020-05-08 09:29] LABS: Hematocrit 34.4 % (42.0-52.0); Hemoglobin 11.2 gm/dL (13.5-18.0); Mean Cell Volume 94.2 fl (78-100); Mean Corpuscular Hemoglobin 30.7 pg (27-31); Mean Corpuscular Hgb Conc 32.6 g/dl (32-36); Mean Platelet Volume 9.1 fl (8-11.3); Platelet Count 509 K/mm3 (150-450); Red Blood Count 3.65 M/mm3 (4.7-6.0); White Blood Count 14.9 K/mm3 (4.0-10.5)
[2020-05-08 09:33] LABS: Total Cells Counted 100
[2020-05-08 09:44] LABS: Albumin * 1.7 gm/dl (3.4-5.0); Anion Gap 16.3 mmol/L (6.8-13.8); BUN/Creatinine Ratio 21.9 (9.0-21.6); Bilirubin, Total 0.3 mg/dL (0.0-1.1); Ca. Corrected For Albumin 10.2 mg/dL (8.4-10.2); Calcium * 8.7 mg/dL (7.9-10.9); Carbon Dioxide 20.1 mmol/L (24-32.6); Potassium 4.4 mmol/L (3.4-4.6)
[2020-05-08 10:22] LABS: Atypical (Reactive) Lymph 2 % (0-2); Band 2 % (0-2.0); Eosinophil 2 % (0-3); Lymphocyte 11 % (20-51); Monocyte 4 % (0-9); Neutrophil 79 % (42-75); Neutrophil # 11.8 K/mm3 (1.3-6.0)
[2020-05-08 10:23] LABS: Platelet Estimate Increased (NORMAL); RBC Morphology Normal (NORMAL)
[2020-05-08] MEDS: TAMSULOSIN HCL 0.4 MG CAP.SR.24H PO SCH (17:36)
[2020-05-08] MEDS: LATANOPROST 25 DROP BTL EACHEYE SCH (20:46)
[2020-05-08] MEDS: INSULIN GLARGINE,HUM.REC.ANLOG 100 UNITS/ML VIAL SC SCH (20:47)
[2020-05-08] MEDS: SIMVASTATIN 20 MG TABLET PO SCH (20:47)
--- NOTE | 2020-05-08 23:54 | PN ---
Subjective - Date and Time Seen Date: 05/08/20 Time: 12:00 Subjective Narrative: He reports stronger. No pain, shortness of breath. He is eating better today. Discussed seeing urology for phimosis and potential surgery. He declines and would prefer to keep cantor catheter in place to prevent obstruction, help with wound prevention, and prevent urine leak. Objective - Vitals Vitals: Last Vital Signs Temp 36.6 C 05/08/20 19:23 Pulse 96 05/08/20 20:46 Resp 20 05/08/20 19:23 BP 134/75 05/08/20 20:46 Pulse Ox 99 05/08/20 19:23 - Abnormal Lab Findings Abnormal Lab Findings: Abnormal Lab Results 05/08/20 05/08/20 Range/Units 09:22 09:22 WBC 14.9 H D (4.0-10.5) K/mm3 RBC 3.65 L (4.7-6.0) M/mm3 Hgb 11.2 L (13.5-18.0) gm/dL Hct 34.4 L (42.0-52.0) % Plt Count 509 H (150-450) K/mm3 Neutrophils % (Manual) 79 H (42-75) % Lymphocytes % (Manual) 11 L (20-51) % Neutrophils # (Manual) 11.8 H (1.3-6.0) K/mm3 Platelet Estimate Increased H (NORMAL) Sodium 147 H (132-142) mmol/L Plasma Sodium 149 H (130-142) mmol/L Chloride 115 H (97-106) mmol/L Carbon Dioxide 20.1 L (24-32.6) mmol/L Anion Gap 16.3 H (6.8-13.8) mmol/L BUN 53 H (6-23) mg/dL Creatinine 2.42 H (0.4-1.4) mg/dL Est GFR (Non-Af Amer) 27 L (60-130) mL/min BUN/Creatinine Ratio 21.9 H (9.0-21.6) Random Glucose 229 H D (70-110) mg/dL AST 51 H (0-48) U/L Albumin 1.7 L (3.4-5.0) gm/dl - Exam Constitutional: Present: Alert, Other - oriented x 2 ENT Exam: Present: hearing grossly normal Respiratory: Present: lungs clear, normal breath sounds Cardiovascular/Chest: Present: irregularly irregular Abdomen: Present: Normal bowel sounds, soft, nontender, nondistended Extremity: Present: normal inspection Skin Exam: Present: normal color, warm/dry, no cyanosis Neurologic: Present: alert, normal mood/affect Cauti Physician Documentation - Urinary Catheter Management Urethral (Cantor) Date of Insertion: 05/05/20 Time of Insertion: 21:50 Assessment/Plan Plan Narrative: Strength is improved today, continue therapies. Planning to discharge to SNF once medically cleared. WBC is much improved but still elevated. Will continue IV antibiotics. IF WBC normalizes and without fever may switch to PO antibiotics for 2 weeks due to proteus septicemia from UTI. Vitals stable today. Renal function improved. Anticipate discharge in about 3 days. 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
[2020-05-09] MEDS: NORMAL SALINE 1,000 ML IV PRN ×3 (01:09→18:00)
[2020-05-09 06:48] LABS: Hematocrit 31.7 % (42.0-52.0); Hemoglobin 10.3 gm/dL (13.5-18.0); Mean Cell Volume 94.3 fl (78-100); Mean Corpuscular Hemoglobin 30.7 pg (27-31); Mean Corpuscular Hgb Conc 32.5 g/dl (32-36); Mean Platelet Volume 9.1 fl (8-11.3); Neutrophil # 9.4 K/mm3 (1.3-6.0); Neutrophil % 72.8 % (42-75.0); Platelet Count 455 K/mm3 (150-450); Red Blood Count 3.36 M/mm3 (4.7-6.0); Red Cell Distribution Width 14.2 % (11.5-14.0); White Blood Count 12.9 K/mm3 (4.0-10.5)
[2020-05-09 07:02] LABS: Albumin * 1.6 gm/dl (3.4-5.0); Anion Gap 15.9 mmol/L (6.8-13.8); BUN/Creatinine Ratio 22.1 (9.0-21.6); Bilirubin, Total 0.2 mg/dL (0.0-1.1); Ca. Corrected For Albumin 9.7 mg/dL (8.4-10.2); Calcium * 8.1 mg/dL (7.9-10.9); Carbon Dioxide 18.9 mmol/L (24-32.6); Potassium 3.8 mmol/L (3.4-4.6); Total Protein 6.2 gm/dL (6.2-8.2)
[2020-05-09] MEDS: GLIMEPIRIDE 4 MG TABLET PO SCH (07:34)
[2020-05-09] MEDS: INSULIN LISPRO 100 UNITS/ML VIAL SC SCH ×3 (07:34→17:22)
[2020-05-09] MEDS: BRINZOLAMIDE 100 DROP BTL OP SCH ×2 (08:17→20:34)
[2020-05-09] MEDS: ASPIRIN 81 MG TABLET.DR PO SCH (08:17)
[2020-05-09] MEDS: METOPROLOL TARTRATE 50 MG TABLET PO SCH ×2 (08:18→20:35)
[2020-05-09] MEDS: DOCUSATE SODIUM 100 MG CAPSULE PO SCH ×2 (08:18→20:35)
[2020-05-09] MEDS: OXYBUTYNIN CHLORIDE 5 MG TABLET PO SCH (08:18)
[2020-05-09] MEDS: MULTIVITAMINS 1 CAP CAPSULE PO SCH (08:18)
--- NOTE | 2020-05-09 12:43 | PN ---
Subjective - Date and Time Seen Date: 05/09/20 Time: 12:35 Subjective Narrative: Sam in his chair eating lunch today. No concerns at this time. Lab work continues to improve with his white count going down to 12.9. No longer having left shift. Kidney function still elevated though with a creatinine at 2.13 which is down from 3.07 upon admission. His vital signs are stable. He states he feels better than he has in a long time. Blood sugars also much better controlled. Objective - Review of Systems Generalized/Overall Review: Denies: Weakness, Chills, Fever Respiratory: Denies: Cough, Shortness of Breath Cardiac: Denies: Chest Pain, Palpitations Abdominal: Reports: No Symptoms Reported Musculoskeletal Complaints: Reports: No Symptoms Reported Neurological: Reports: No Symptoms Reported - Vitals Vitals: Last Vital Signs Temp 36.1 C 05/09/20 10:00 Pulse 95 05/09/20 10:00 Resp 20 05/09/20 10:00 BP 183/64 H 05/09/20 10:00 Pulse Ox 97 05/09/20 10:00 - Abnormal Lab Findings Abnormal Lab Findings: Abnormal Lab Results 05/09/20 05/09/20 Range/Units 06:30 06:30 WBC 12.9 H (4.0-10.5) K/mm3 RBC 3.36 L (4.7-6.0) M/mm3 Hgb 10.3 L (13.5-18.0) gm/dL Hct 31.7 L (42.0-52.0) % RDW 14.2 H (11.5-14.0) % Plt Count 455 H (150-450) K/mm3 Immature Gran % (Auto) 0.70 H (0.001-0.429) % Immature Gran # (Auto) 0.09 H (0.000-0.0310) K/mm3 Lymphocytes % 15.3 L (20-51) % Monocytes % 9.4 H (0.0-9) % Neutrophils # 9.4 H (1.3-6.0) K/mm3 Monocytes # 1.2 H (0.0-1.0) k/mm3 Sodium 148 H (132-142) mmol/L Plasma Sodium 148 H (130-142) mmol/L Chloride 117 H (97-106) mmol/L Carbon Dioxide 18.9 L (24-32.6) mmol/L Anion Gap 15.9 H (6.8-13.8) mmol/L BUN 47 H (6-23) mg/dL Creatinine 2.13 H (0.4-1.4) mg/dL Est GFR (Non-Af Amer) 32 L (60-130) mL/min BUN/Creatinine Ratio 22.1 H (9.0-21.6) Random Glucose 117 H D (70-110) mg/dL AST 157 H (0-48) U/L ALT 121 H (19-67) U/L Albumin 1.6 L (3.4-5.0) gm/dl - Exam Constitutional: Present: Alert, Oriented x3, Cooperative, Elderly ENT Exam: Present: hearing grossly normal Respiratory: Present: lungs clear, normal breath sounds Cardiovascular/Chest: Present: no murmur, irregularly irregular Abdomen: Present: soft, nontender, nondistended Extremity: Present: normal inspection Skin Exam: Present: normal color, warm/dry Neurologic: Present: alert, normal mood/affect Cauti Physician Documentation - Urinary Catheter Management Urethral (Carney) Date of Insertion: 05/05/20 Time of Insertion: 21:50 Assessment/Plan Plan Narrative: Patient continues to improve on Rocephin for septicemia. Vital signs been stable has been afebrile. Patient's appetite is returned and is eating well. Patient denies any aches or pains at this time. Currently awaiting placement. Repeat CBC in the morning as his white count is still elevated but better. Repeat BMP in the morning to monitor kidney function. Patient does have Carney catheter in place, currently on Flomax and oxybutynin. Once discharged, patient will be on extended course of antibiotics due to septicemia. Patient blood sugars also much better with resumption of his insulin. Continue to monitor sugars a CHS. Continue SCDs for DVT prophylaxis. Likely discharge to senior living on Monday, nurse to call questions or concerns. 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
[2020-05-09] MEDS: TAMSULOSIN HCL 0.4 MG CAP.SR.24H PO SCH (17:29)
[2020-05-09] MEDS: INSULIN GLARGINE,HUM.REC.ANLOG 100 UNITS/ML VIAL SC SCH (20:35)
[2020-05-09] MEDS: SIMVASTATIN 20 MG TABLET PO SCH (20:39)
[2020-05-09] MEDS: LATANOPROST 25 DROP BTL EACHEYE SCH (20:39)
[2020-05-10] MEDS: NORMAL SALINE 1,000 ML IV PRN ×2 (02:25→10:15)
[2020-05-10] MEDS: INSULIN LISPRO 100 UNITS/ML VIAL SC SCH ×3 (06:46→17:28)
[2020-05-10] MEDS: GLIMEPIRIDE 4 MG TABLET PO SCH (06:47)
[2020-05-10 06:50] LABS: Hematocrit 36.1 % (42.0-52.0); Hemoglobin 11.6 gm/dL (13.5-18.0); Mean Cell Volume 94.5 fl (78-100); Mean Corpuscular Hemoglobin 30.4 pg (27-31); Mean Corpuscular Hgb Conc 32.1 g/dl (32-36); Mean Platelet Volume 8.7 fl (8-11.3); Neutrophil # 10.9 K/mm3 (1.3-6.0); Neutrophil % 72.8 % (42-75.0); Platelet Count 429 K/mm3 (150-450); Red Blood Count 3.82 M/mm3 (4.7-6.0); Red Cell Distribution Width 13.8 % (11.5-14.0)
[2020-05-10 06:57] LABS: Anion Gap 14.4 mmol/L (6.8-13.8); BUN/Creatinine Ratio 20.5 (9.0-21.6); Calcium * 8.5 mg/dL (7.9-10.9); Carbon Dioxide 20.6 mmol/L (24-32.6); Estimated Creat Clear 31.8
[2020-05-10] MEDS: OXYBUTYNIN CHLORIDE 5 MG TABLET PO SCH (08:50)
[2020-05-10] MEDS: MULTIVITAMINS 1 CAP CAPSULE PO SCH (08:50)
[2020-05-10] MEDS: METOPROLOL TARTRATE 50 MG TABLET PO SCH ×2 (08:50→20:09)
[2020-05-10] MEDS: DOCUSATE SODIUM 100 MG CAPSULE PO SCH ×2 (08:50→20:08)
[2020-05-10] MEDS: ASPIRIN 81 MG TABLET.DR PO SCH (08:50)
[2020-05-10] MEDS: BRINZOLAMIDE 100 DROP BTL OP SCH ×2 (08:50→20:08)
--- NOTE | 2020-05-10 12:33 | PN ---
Subjective - Date and Time Seen Date: 05/10/20 Time: 12:28 Subjective Narrative: Patient resting comfortably in bed, easily arousable. Denies any issues or concerns at this time. His vital signs been stable has been afebrile. His white count did increase from 12.9 up to 15.0. Reviewed patient's cultures which are pansensitive. Patient is on Rocephin and so will wait and see what his white count looks like tomorrow before we adjust any of the biotics as he feels well, is eating well, and has no concerns at this time. I think it should trend down tomorrow as he gets another dose of antibiotics in his system. Objective - Review of Systems Generalized/Overall Review: Denies: Weakness, Chills, Fever EENTM: Reports: No Symptoms Reported Respiratory: Denies: Cough, Shortness of Breath Cardiac: Reports: No Symptoms Reported Abdominal: Denies: Nausea, Vomiting, Abdominal Pain Genitourinary Symptoms: Reports: No Symptoms Reported Musculoskeletal Complaints: Reports: No Symptoms Reported Neurological: Reports: No Symptoms Reported - Vitals Vitals: Last Vital Signs Temp 37.2 C 05/10/20 10:00 Pulse 93 05/10/20 10:00 Resp 16 05/10/20 10:00 BP 127/68 05/10/20 10:00 Pulse Ox 96 05/10/20 10:00 - Abnormal Lab Findings Abnormal Lab Findings: Abnormal Lab Results 05/10/20 05/10/20 Range/Units 06:45 06:45 WBC 15.0 H (4.0-10.5) K/mm3 RBC 3.82 L (4.7-6.0) M/mm3 Hgb 11.6 L (13.5-18.0) gm/dL Hct 36.1 L (42.0-52.0) % Immature Gran % (Auto) 0.80 H (0.001-0.429) % Immature Gran # (Auto) 0.12 H (0.000-0.0310) K/mm3 Lymphocytes % 17.5 L (20-51) % Neutrophils # 10.9 H (1.3-6.0) K/mm3 Monocytes # 1.2 H (0.0-1.0) k/mm3 Sodium 145 H (132-142) mmol/L Plasma Sodium 145 H (130-142) mmol/L Chloride 114 H (97-106) mmol/L Carbon Dioxide 20.6 L (24-32.6) mmol/L Anion Gap 14.4 H (6.8-13.8) mmol/L BUN 39 H (6-23) mg/dL Creatinine 1.90 H (0.4-1.4) mg/dL Est GFR (Non-Af Amer) 36 L (60-130) mL/min - Exam Constitutional: Present: Alert, Oriented x3, Cooperative, Elderly ENT Exam: Present: hearing grossly normal Respiratory: Present: lungs clear, no respiratory distress Cardiovascular/Chest: Present: no murmur, irregularly irregular Abdomen: Present: soft, nontender, nondistended Skin Exam: Present: normal color, warm/dry Appearance: Present: appropriate appearance, appropriate insight Eye contact: Present: cooperative Cauti Physician Documentation - Urinary Catheter Management Urethral (Carney) Date of Insertion: 05/05/20 Time of Insertion: 21:50 Assessment/Plan Plan Narrative: Continue current treatment plan with Rocephin to treat his bacteremia and UTI. Patient nontender over his bladder today. Patient's been afebrile and his vital signs been stable. Clinical patient much improved aside from mildly elevated white blood count from yesterday but overall still significant better than when he came into the hospital. Will repeat CBC in the morning. Kidney function also much improved, down to 1.9 from 2.67. We will order ambulation to sit to chair throughout the day. Awaiting placement which should be available on Monday. Anticipate discharge either tomorrow or the next day pending white blood cell count. Patient will likely have to go home on a prolonged oral antibiotic regimen due to his bacteremia. Blood sugars also much improved, well controlled at this time. Otherwise patient is much improved, nurse to call questions or concerns. 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
[2020-05-10] MEDS: TAMSULOSIN HCL 0.4 MG CAP.SR.24H PO SCH (17:27)
[2020-05-10] MEDS: INSULIN GLARGINE,HUM.REC.ANLOG 100 UNITS/ML VIAL SC SCH (20:08)
[2020-05-10] MEDS: LATANOPROST 25 DROP BTL EACHEYE SCH (20:09)
[2020-05-10] MEDS: SIMVASTATIN 20 MG TABLET PO SCH (20:09)
[2020-05-11 07:08] LABS: Hematocrit 33.9 % (42.0-52.0); Hemoglobin 11.2 gm/dL (13.5-18.0); Mean Cell Volume 92.9 fl (78-100); Mean Corpuscular Hemoglobin 30.7 pg (27-31); Mean Platelet Volume 8.9 fl (8-11.3); Platelet Count 545 K/mm3 (150-450); Red Blood Count 3.65 M/mm3 (4.7-6.0); Red Cell Distribution Width 13.5 % (11.5-14.0); White Blood Count 16.6 K/mm3 (4.0-10.5)
[2020-05-11 07:09] LABS: Total Cells Counted 100
[2020-05-11 07:12] LABS: Anion Gap 13.4 mmol/L (6.8-13.8); BUN/Creatinine Ratio 18.2 (9.0-21.6); Calcium * 8.6 mg/dL (7.9-10.9); Carbon Dioxide 22.2 mmol/L (24-32.6); Estimated Creat Clear 34.3; Potassium 3.6 mmol/L (3.4-4.6)
[2020-05-11] MEDS: GLIMEPIRIDE 4 MG TABLET PO SCH (07:15)
[2020-05-11] MEDS: INSULIN LISPRO 100 UNITS/ML VIAL SC SCH (07:16)
[2020-05-11 07:21] LABS: Eosinophil 1 % (0-3); Lymphocyte 10 % (20-51); Monocyte 4 % (0-9); Neutrophil 85 % (42-75); Neutrophil # 14.1 K/mm3 (1.3-6.0)
[2020-05-11 07:22] LABS: Platelet Estimate Normal (NORMAL); Toxic Granulation 1+
[2020-05-11 07:23] LABS: RBC Morphology Normal (NORMAL)
[2020-05-11] MEDS: BRINZOLAMIDE 100 DROP BTL OP SCH (08:28)
[2020-05-11] MEDS: DOCUSATE SODIUM 100 MG CAPSULE PO SCH (08:28)
[2020-05-11] MEDS: OXYBUTYNIN CHLORIDE 5 MG TABLET PO SCH (08:28)
[2020-05-11] MEDS: METOPROLOL TARTRATE 50 MG TABLET PO SCH (08:28)
[2020-05-11] MEDS: ASPIRIN 81 MG TABLET.DR PO SCH (08:28)
[2020-05-11] MEDS: MULTIVITAMINS 1 CAP CAPSULE PO SCH (08:28)
--- NOTE | 2020-05-11 09:06 | DS ---
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 He was started on Rocephin IV and given IV fluids. PT and OT was consulted to work on strengthening. Initially he was tachycardic, tachypneic, had WBC of 33k, acute kidney injury of 3.07, and infectious encephalopathy. With antibiotics and fluid these all improved. His blood sugars were controlled with his home dose of insulin and consistent carb diet. He worked with therapy and gradually became stronger. Culture came back positive for proteus in blood cultures x 2 and urine culture confirming septicemia from a urinary source. He had a cantor catheter placed on admission due to acute kidney injury as well as irritated scrotum/perineum due to urinary incontinence and decreased mobility. He had been sitting in a recliner for the 3 days prior to admission and family was not able to care for him. When the cantor was placed there was evidence of phimosis causing some obstruction and likely contributed to his acute kidney injury and poor pelvic hygiene. I discussed with him the option of seeing urology for procedure to treat this which he declined. To prevent urinary obstruction, urinary incontinence contributing to poor hygiene and development of wounds in the pelvic region he will remain with a cantor catheter. If he agrees to urology consultation down the road he could see them about a dorsal slit procedure for phimosis. Based on cultures will change antibiotics to levaquin and DC rocephin. Will discharge to nursing facility for PT and OT. He may improve enough to return home, but as family were becoming unable to care for him at home it may be best for him to be in the longterm half-way. May repeat blood cultures in 2 weeks to show clearance of proteus. Procedures Performed: none Results and Findings: Lab Pending Results 05/05/20 20:25: WBC 33.9 H, RBC 4.15 L, Hgb 12.9 L, Hct 38.9 L, MCV 93.7, MCH 31.1 H, MCHC 33.2, RDW 12.9, Plt Count 485 H, MPV 9.6, Neutrophils % (Manual) 81 H, Band Neuts % (Manual) 8 H, Lymphocytes % (Manual) 5 L, Monocytes % (Manual) 6, Neutrophils # (Manual) 27.5 H, Lymphocytes # (Manual) 1.7, Monocytes # (Manual) 2.0 H, Nucleated RBCs 4.0 H, Platelet Estimate Increased H, Giant Platelets Trace, RBC Morphology Normal 05/05/20 20:25: Sodium 133, Plasma Sodium 138, Potassium 4.7 H D, Chloride 97, Carbon Dioxide 17.0 L, Anion Gap 23.7 H, BUN 71 H D, Creatinine 3.07 H D, Est GFR (Non-Af Amer) 21 L D, BUN/Creatinine Ratio 23.1 H, Random Glucose 400 H, Calcium 9.3, Calcium Adj for Albumin 10.4 H, Total Bilirubin 0.9, AST 20, ALT 49, Alkaline Phosphatase 163, Troponin I Less than 0.017, B-Natriuretic Peptide 287, Total Protein 8.4 H, Albumin 2.2 L 05/05/20 20:25: Lactic Acid, Venous 4.6 H* 05/05/20 21:48: Urine Color Yellow, Urine Appearance Cloudy, Urine pH >=9, Ur Specific [place] 1.010, Urine Protein 100 H, Urine Glucose (UA) 250 H, Urine Ketones Negative, Urine Blood 250 H, Urine Nitrate Negative, Urine Bilirubin Negative, Urine Urobilinogen Normal, Ur Leukocyte Esterase 100 H, Urine RBC >50 H, Urine WBC 25-50 H, Ur Epithelial Cells None seen, Urine Bacteria 4+ H, Urine Culture Comments Culture to follow 05/05/20 22:16: SARS-CoV-2 (PCR) Not detected 05/05/20 23:13: Lactic Acid, Venous 4.8 H* 05/07/20 07:42: WBC 25.5 H D, RBC 4.23 L, Hgb 13.0 L, Hct 40.3 L, MCV 95.3, MCH 30.7, MCHC 32.3, RDW 13.6, Plt Count 558 H, MPV 9.2, Neutrophils % (Manual) 90 H, Band Neuts % (Manual) 2, Lymphocytes % (Manual) 6 L, Monocytes % (Manual) 2, Neutrophils # (Manual) 23.0 H, Lymphocytes # (Manual) 1.5, Monocytes # (Manual) 0.5, Platelet Estimate Increased H, RBC Morphology Normal 05/07/20 07:42: Sodium 142, Plasma Sodium 146 H, Potassium 4.2, Chloride 109 H, Carbon Dioxide 16.5 L, Anion Gap 20.7 H, BUN 61 H, Creatinine 2.67 H D, Est GFR (Non-Af Amer) 24 L, BUN/Creatinine Ratio 22.8 H, Random Glucose 332 H, Calcium 9.3, Calcium Adj for Albumin 10.7 H, Total Bilirubin 0.4, AST 31, ALT 41, Alkaline Phosphatase 166, Total Protein 8.1, Albumin 1.9 L 05/08/20 09:22: WBC 14.9 H D, RBC 3.65 L, Hgb 11.2 L, Hct 34.4 L, MCV 94.2, MCH 30.7, MCHC 32.6, RDW 14.0, Plt Count 509 H, MPV 9.1, Neutrophils % (Manual) 79 H, Band Neuts % (Manual) 2, Lymphocytes % (Manual) 11 L, Monocytes % (Manual) 4, Eosinophils % (Manual) 2, Neutrophils # (Manual) 11.8 H, Lymphocytes # (Manual) 1.6, Monocytes # (Manual) 0.6, Eosinophils # (Manual) 0.3, Atypic/Reactive Lymphs 2, Platelet Estimate Increased H, RBC Morphology Normal 05/08/20 09:22: Sodium 147 H, Plasma Sodium 149 H, Potassium 4.4, Chloride 115 H, Carbon Dioxide 20.1 L, Anion Gap 16.3 H, BUN 53 H, Creatinine 2.42 H, Est GFR (Non-Af Amer) 27 L, BUN/Creatinine Ratio 21.9 H, Random Glucose 229 H D, Calcium 8.7, Calcium Adj for Albumin 10.2, Total Bilirubin 0.3, AST 51 H, ALT 47, Alkaline Phosphatase 131, Total Protein 7.0, Albumin 1.7 L 05/09/20 06:30: WBC 12.9 H, RBC 3.36 L, Hgb 10.3 L, Hct 31.7 L, MCV 94.3, MCH 30.7, MCHC 32.5, RDW 14.2 H, Plt Count 455 H, MPV 9.1, Immature Gran % (Auto) 0.70 H, Immature Gran # (Auto) 0.09 H, Neutrophils % 72.8, Lymphocytes % 15.3 L, Monocytes % 9.4 H, Eosinophils % 1.5, Basophils % 0.3, Nucleated RBC % 0.0, Neutrophils # 9.4 H, Lymphocytes # 1.98, Monocytes # 1.2 H, Eosinophils # 0.2, Absolute Basophils 0.0 05/09/20 06:30: Sodium 148 H, Plasma Sodium 148 H, Potassium 3.8, Chloride 117 H, Carbon Dioxide 18.9 L, Anion Gap 15.9 H, BUN 47 H, Creatinine 2.13 H, Est GFR (Non-Af Amer) 32 L, BUN/Creatinine Ratio 22.1 H, Random Glucose 117 H D, Calcium 8.1, Calcium Adj for Albumin 9.7, Total Bilirubin 0.2, AST 157 H, ALT 121 H, Alkaline Phosphatase 138, Total Protein 6.2, Albumin 1.6 L 05/10/20 06:45: Sodium 145 H, Plasma Sodium 145 H, Potassium 4.0, Chloride 114 H, Carbon Dioxide 20.6 L, Anion Gap 14.4 H, BUN 39 H, Creatinine 1.90 H, Est GFR (Non-Af Amer) 36 L, BUN/Creatinine Ratio 20.5, Random Glucose 93, Calcium 8.5 05/10/20 06:45: WBC 15.0 H, RBC 3.82 L, Hgb 11.6 L, Hct 36.1 L, MCV 94.5, MCH 30.4, MCHC 32.1, RDW 13.8, Plt Count 429, MPV 8.7, Immature Gran % (Auto) 0.80 H, Immature Gran # (Auto) 0.12 H, Neutrophils % 72.8, Lymphocytes % 17.5 L, Monocytes % 7.7, Eosinophils % 0.9, Basophils % 0.3, Nucleated RBC % 0.0, Neutrophils # 10.9 H, Lymphocytes # 2.62, Monocytes # 1.2 H, Eosinophils # 0.1, Absolute Basophils 0.1 05/11/20 06:38: WBC 16.6 H, RBC 3.65 L, Hgb 11.2 L, Hct 33.9 L, MCV 92.9, MCH 30.7, MCHC 33.0, RDW 13.5, Plt Count 545 H, MPV 8.9, Neutrophils % (Manual) 85 H, Lymphocytes % (Manual) 10 L, Monocytes % (Manual) 4, Eosinophils % (Manual) 1, Neutrophils # (Manual) 14.1 H, Lymphocytes # (Manual) 1.7, Monocytes # (Manual) 0.7, Eosinophils # (Manual) 0.2, Toxic Granulation 1+, Platelet Estimate Normal, RBC Morphology Normal 05/11/20 06:38: Sodium 143 H, Plasma Sodium 142, Potassium 3.6, Chloride 111 H, Carbon Dioxide 22.2 L, Anion Gap 13.4, BUN 32 H, Creatinine 1.76 H, Est GFR (Non-Af Amer) 39 L, BUN/Creatinine Ratio 18.2, Random Glucose 67 L, Calcium 8.6 Discharge Location: [facility] Disposition: Home self-care Condition: Fair Level of Care: SNF Discharge Activity: Activity as tolerated Discharge Diet: Consistent carbs Assisted Therapy: Physical Therapy, Occupation Therapy Referrals: DOC,OUTSIDE [Non Staff Physicians] - (Facility Physician to follow) Problem Oriented Discharge Instructions to Patient/Family: Sepsis, Diagnosis, Adult, Bacteremia, Adult Additional Patient Instructions (free text): Repeat blood culture in 2 weeks after levaquin is completed. Prescriptions (Any new or edited meds): Levofloxacin [Levaquin] 750 mg PO DAILY #14 tab [facility] Home Medications List: Complete Home Medication List: Glimepiride 8 mg PO DAILY 01/04/20 Aspirin [Aspirin EC] 81 mg PO DAILY 01/16/20 Blood Sugar Diagnostic [Accu-Chek Guide Test Strip] 1 ea MC BID 01/16/20 Multivitamin 1 ea PO DAILY 01/16/20 flash glucose scanning reader See Rx Instructions .ROUTE .MEDSUPPLY #1 ea 01/20/20 metformin 1,000 mg tablet 1,000 mg PO BID #180 tab 01/20/20 oxybutynin chloride 5 mg tablet 5 mg PO DAILY #90 tab 01/20/20 Brinzolamide [Azopt] 1 drp OP BID 04/28/20 Simvastatin 20 mg PO HS 04/28/20 Insulin Glargine,Hum.rec.anlog [Lantus] 52 units SC HS #5 vial 05/01/20 Metoprolol Tartrate [Lopressor] 50 mg PO BID #180 tab 05/01/20 Tamsulosin HCl [Flomax] 0.4 mg PO DAILY@1800 #90 cap.sr.24h 05/01/20 flash glucose sensor See Rx Instructions .ROUTE .MEDSUPPLY #1 ea 05/04/20 Latanoprost/Pf [Latanoprost 0.005% Eye Drop] 1 drp EACHEYE HS 05/06/20 Levofloxacin [Levaquin] 750 mg PO DAILY #14 tab 05/11/20 Forms: Patient Portal Registration
[2020-05-11 10:19] VITALS: BP 114/62
== END 2020-05-11 10:45 | DRG 871 ==
LOC: ER 19:50 → MS 22:45
PROVIDERS: ADMIT Family Medicine; ATTEND Family Medicine
DX: N30.00 Acute cystitis without hematuria; E86.0 Dehydration; G93.41 Metabolic encephalopathy; N17.9 Acute kidney failure, unspecified; Z79.4 Long term (current) use of insulin; R65.20 Severe sepsis without septic shock; E87.2 Acidosis; A41.89 Other specified sepsis; B96.4 Proteus (mirabilis) (morganii) as the cause of diseases classified elsewhere; I48.0 Paroxysmal atrial fibrillation; E11.65 Type 2 diabetes mellitus with hyperglycemia